=== PATIENT | male | born 1965 | race Caucasian/White ===

== ENCOUNTER 2016-12-22 12:18 | Observation (INO) ==
[2016-12-22] MEDS ORDERED: Aspirin 81 MG TAB.CHEW PO ONE (12:20)
--- NOTE | 2016-12-22 12:21 | Emergency Department Note ---
Disposition Clinical Impression: Chest pain Disposition: Admitted As Inpatient Condition: Fair General Adult HPI - General Chief complaint: ED Chest Pain Stated complaint: Chest Pain Time Seen by Provider: 12/22/16 12:19 - Related Data Home Medications Medication Instructions Recorded Confirmed Albuterol Sulfate [Proair HFA] 1 - 2 puff IH Q6HR PRN 07/11/15 12/22/16 Insulin Glargine,Hum.rec.anlog 120 unit SQ BID 07/11/15 12/22/16 [Lantus Solostar] Insulin Regular Human [Humulin R] 50 mg SQ TID 07/11/15 12/22/16 Metformin [Glucophage] 1,000 mg PO BID 07/11/15 12/22/16 Metoprolol [Lopressor] 50 mg PO BID 07/11/15 12/22/16 Montelukast [Singulair] 10 mg PO DAILY 07/11/15 12/22/16 Pioglitazone [Actos] 30 mg PO DAILY 07/11/15 12/22/16 Allergies Allergy/AdvReac Type Severity Reaction Status Date / Time Cyclobenzaprine AdvReac See Verified 12/22/16 14:27 [From Flexeril] Comments Past Medical History - Past Medical History Medical history: Reports: asthma, diabetes, hyperlipidemia, hypertension Surgical history: Reports: no surgical history Psychiatric history: Reports: anxiety - Social History Smoking Status: Current every day smoker Smokeless Tobacco Status: No Alcohol use: Reports: none Drug use: Reports: opiates, methamphetamine, IVDU, prescription drug abuse Course Vital Signs Temperature 98.2 F 12/22/16 12:19 Pulse Rate 88 12/22/16 12:19 Respiratory Rate 18 12/22/16 12:19 Blood Pressure 158/90 12/22/16 12:19 O2 Sat by Pulse Oximetry 100 12/22/16 12:19 Temperature 97.7 F 12/22/16 15:01 Pulse Rate 81 12/22/16 15:01 Respiratory Rate 16 12/22/16 15:01 Blood Pressure 153/93 12/22/16 15:01 O2 Sat by Pulse Oximetry 99 12/22/16 15:01 Oxygen Delivery Oxygen Delivery Room Air Medical Decision Making - Lab Data Result diagrams: 12/22/16 13:03 12/22/16 13:03 Lab Results 12/22/16 12/22/16 12/22/16 Range/Units 13:03 13:03 13:03 WBC 9.7 (4.3-11.1) K/mcL RBC 5.14 (4.19-5.50) M/mcL Hgb 15.5 (12.9-16.9) g/dL Hct 46.0 (37.5-50.1) % MCV 89.5 (83.0-100.0) fL MCH 30.2 (28.0-33.3) pg MCHC 33.7 (31.6-35.5) g/dL RDW 12.8 (11.5-14.5) % Plt Count 196 (140-400) K/mcL MPV 11.8 (9.4-12.4) fL Immature Gran % 0.5 (0-4) % Seg Neutrophils % 59.1 % Lymphocytes % 31.9 % Monocytes % 5.7 % Eosinophils % 1.5 % Basophils % 1.3 % Neutrophils # 5.7 (1.6-8.9) K/mcL Lymphocytes # 3.1 (0.6-4.6) K/mcL Monocytes # 0.6 (0.0-1.3) K/mcL Eosinophils # 0.2 (0.0-0.6) K/mcL Basophils # 0.1 (0.0-0.2) K/mcL Immature Plt Fraction 9.7 H (1.1-6.1) % PT 11.2 (9.4-12.1) Seconds INR 1.0 APTT 29.5 (26.0-36.0) Seconds Sodium 137 (136-145) mEq/L Potassium 4.1 (3.5-4.5) mEq/L Chloride 101 (98-109) mEq/L Carbon Dioxide 25 (19-29) mEq/L BUN 12 (8-26) mg/dL Creatinine 0.87 (0.72-1.25) mg/dL Est GFR ( Amer) > 60 (> 60) Est GFR (Non-Af Amer) > 60 (> 60) BUN/Creatinine Ratio 14 (6-26) Glucose 205 H (70-99) mg/dL Calculated Osmolality 290 (280-300) Calcium 9.1 (8.6-10.8) mg/dL Troponin I (0-0.03) ng/mL 12/22/16 Range/Units 13:03 WBC (4.3-11.1) K/mcL RBC (4.19-5.50) M/mcL Hgb (12.9-16.9) g/dL Hct (37.5-50.1) % MCV (83.0-100.0) fL MCH (28.0-33.3) pg MCHC (31.6-35.5) g/dL RDW (11.5-14.5) % Plt Count (140-400) K/mcL MPV (9.4-12.4) fL Immature Gran % (0-4) % Seg Neutrophils % % Lymphocytes % % Monocytes % % Eosinophils % % Basophils % % Neutrophils # (1.6-8.9) K/mcL Lymphocytes # (0.6-4.6) K/mcL Monocytes # (0.0-1.3) K/mcL Eosinophils # (0.0-0.6) K/mcL Basophils # (0.0-0.2) K/mcL Immature Plt Fraction (1.1-6.1) % PT (9.4-12.1) Seconds INR APTT (26.0-36.0) Seconds Sodium (136-145) mEq/L Potassium (3.5-4.5) mEq/L Chloride (98-109) mEq/L Carbon Dioxide (19-29) mEq/L BUN (8-26) mg/dL Creatinine (0.72-1.25) mg/dL Est GFR ( Amer) (> 60) Est GFR (Non-Af Amer) (> 60) BUN/Creatinine Ratio (6-26) Glucose (70-99) mg/dL Calculated Osmolality (280-300) Calcium (8.6-10.8) mg/dL Troponin I 0.00 (0-0.03) ng/mL Attestation Statement - Attestation Attestation: I examined this patient and my medical decision-making was reviewed with the MANAGER SOLUTION/PA/Advanced Practice Nurse/Resident Physician. I agree with the documented findings, disposition and treatment plan as described except to the extent set forth below. Ethd-hv-vsza time provided Patient presents as a transfer from the urgent care with reports of intermittent left-sided chest pain over the past several weeks. He also noticed a shocklike tingling sensation extending down his left upper extremity. He is asymptomatic at the time of my exam. EKG reviewed by me. Plan of care management discussed by me with resident physician Dr. Berrios
--- NOTE | 2016-12-22 12:31 | Emergency Department Note ---
Disposition Clinical Impression: Chest pain Qualifiers: Chest pain type: unspecified Qualified Code(s): R07.9 - Chest pain, unspecified Disposition: Admitted As Inpatient Condition: Good Forms: ED Satisfaction Letter General Adult HPI - General Chief complaint: ED Chest Pain Stated complaint: Chest Pain Time Seen by Provider: 12/22/16 12:19 Source: patient, EMS Limitations: no limitations - History of Present Illness HPI Narrative: 51-year-old male who admits to intermittent left sided and left shoulder chest discomfort going on for the last few weeks. He said that over the last 24 hours significantly worse and was constant. Because of this he went to an urgent care. While there he received nitroglycerin and aspirin. He states that after the nitroglycerin his chest pain when away. By the time he arrived in the emergency department he was pain-free. He reports that he does not have a cardiac history. He does have a history of IV drug use but has since gone to detox facility. He also admits to past medical history of hypertension and hyperlipidemia and diabetes (insulin-dependent). He is not on any blood thinners and does not have any stents. Radiation: non-radiation Pain Scale: 1 Consistency: now resolved Improves with: nothing Worsens with: nothing Associated symptoms: Reports: denies other symptoms Treatments Prior to Arrival: none - Related Data Home Medications Medication Instructions Recorded Confirmed Albuterol Sulfate [Proair HFA] 0 puff IH Q6HR 07/11/15 07/11/15 Insulin Glargine,Hum.rec.anlog 120 unit SQ BID 07/11/15 07/11/15 [Lantus Solostar] Insulin Regular Human [Humulin R] 50 mg SQ TID 07/11/15 07/11/15 Metformin [Glucophage] 500 mg PO BID 07/11/15 07/11/15 Metoprolol [Lopressor] 50 mg PO BID 07/11/15 07/11/15 Montelukast [Singulair] 10 mg PO DAILY 07/11/15 07/11/15 Pioglitazone [Actos] 30 mg PO 0800 07/11/15 07/11/15 Allergies Allergy/AdvReac Type Severity Reaction Status Date / Time Cyclobenzaprine AdvReac Hives Verified 07/11/15 16:55 [facility] All systems ED: reviewed and negative except as stated. Constitutional: Denies: fever Eyes: Denies: vision change ENT ED: Denies: throat pain Cardiovascular: Reports: chest pain Respiratory: Reports: dyspnea. Denies: cough Gastrointestinal: Denies: abdominal pain Genitourinary: Denies: dysuria Musculoskeletal: Denies: back pain Integumentary: Denies: rash Neurological: Denies: headache Past Medical History - Past Medical History Medical history: Reports: asthma, diabetes, hyperlipidemia, hypertension Surgical history: Reports: no surgical history Psychiatric history: Reports: anxiety - Social History Smoking Status: Current every day smoker Smokeless Tobacco Status: No Alcohol use: Reports: none Drug use: Reports: opiates, methamphetamine, IVDU, prescription drug abuse Physical Exam - General Limitations: no limitations General appearance: alert, in no apparent distress - Head Head exam: atraumatic - Eye Eye exam: Present: normal appearance, PERRL, EOMI - ENT ENT exam: normal exam, normal oropharynx - Neck Neck exam: Present: normal inspection, full ROM - Chest Chest inspection: Present: normal inspection - Respiratory Respiratory exam: Present: normal lung sounds bilaterally. Absent: respiratory distress, wheezes - Cardiovascular Cardiovascular exam: Present: regular rate, normal rhythm - Abdominal Exam Abdominal exam: Present: soft, Non-Tender - Extremities Exam Extremities exam: Present: normal inspection - Back Exam Back exam: Present: normal inspection - Neurological Exam Neurological exam: Present: alert, oriented X3 - Psychiatric Psychiatric exam: Present: normal affect, normal mood - Skin Skin exam: Present: warm, dry Course Course Narrative: He already received 325 mg of aspirin at the urgent care. Chest pain workups been initiated disposition pending results. He is currently symptomatic with stable vital signs - Reevaluation(s) Reevaluation #1: Accepted by hospitalist Dr Britton Vital Signs Temperature 98.2 F 12/22/16 12:19 Pulse Rate 88 12/22/16 12:19 Respiratory Rate 18 12/22/16 12:19 Blood Pressure 158/90 12/22/16 12:19 O2 Sat by Pulse Oximetry 100 12/22/16 12:19 Temperature 98.2 F 12/22/16 12:19 Pulse Rate 77 12/22/16 13:01 Respiratory Rate 17 12/22/16 13:01 Blood Pressure 132/93 12/22/16 13:01 O2 Sat by Pulse Oximetry 99 12/22/16 13:01 Oxygen Delivery Oxygen Delivery Room Air Medical Decision Making - Medical Records Medical records reviewed: Yes I reviewed the patient's medical records. - Lab Data Lab results reviewed: Yes I reviewed the patient's lab results. Result diagrams: 12/22/16 13:03 12/22/16 13:03 Lab Results 12/22/16 12/22/16 12/22/16 Range/Units 13:03 13:03 13:03 WBC 9.7 (4.3-11.1) K/mcL RBC 5.14 (4.19-5.50) M/mcL Hgb 15.5 (12.9-16.9) g/dL Hct 46.0 (37.5-50.1) % MCV 89.5 (83.0-100.0) fL MCH 30.2 (28.0-33.3) pg MCHC 33.7 (31.6-35.5) g/dL RDW 12.8 (11.5-14.5) % Plt Count 196 (140-400) K/mcL MPV 11.8 (9.4-12.4) fL Immature Gran % 0.5 (0-4) % Seg Neutrophils % 59.1 % Lymphocytes % 31.9 % Monocytes % 5.7 % Eosinophils % 1.5 % Basophils % 1.3 % Neutrophils # 5.7 (1.6-8.9) K/mcL Lymphocytes # 3.1 (0.6-4.6) K/mcL Monocytes # 0.6 (0.0-1.3) K/mcL Eosinophils # 0.2 (0.0-0.6) K/mcL Basophils # 0.1 (0.0-0.2) K/mcL Immature Plt Fraction 9.7 H (1.1-6.1) % PT 11.2 (9.4-12.1) Seconds INR 1.0 APTT 29.5 (26.0-36.0) Seconds Sodium 137 (136-145) mEq/L Potassium 4.1 (3.5-4.5) mEq/L Chloride 101 (98-109) mEq/L Carbon Dioxide 25 (19-29) mEq/L BUN 12 (8-26) mg/dL Creatinine 0.87 (0.72-1.25) mg/dL Est GFR ( Amer) > 60 (> 60) Est GFR (Non-Af Amer) > 60 (> 60) BUN/Creatinine Ratio 14 (6-26) Glucose 205 H (70-99) mg/dL Calculated Osmolality 290 (280-300) Calcium 9.1 (8.6-10.8) mg/dL Troponin I (0-0.03) ng/mL 12/22/16 Range/Units 13:03 WBC (4.3-11.1) K/mcL RBC (4.19-5.50) M/mcL Hgb (12.9-16.9) g/dL Hct (37.5-50.1) % MCV (83.0-100.0) fL MCH (28.0-33.3) pg MCHC (31.6-35.5) g/dL RDW (11.5-14.5) % Plt Count (140-400) K/mcL MPV (9.4-12.4) fL Immature Gran % (0-4) % Seg Neutrophils % % Lymphocytes % % Monocytes % % Eosinophils % % Basophils % % Neutrophils # (1.6-8.9) K/mcL Lymphocytes # (0.6-4.6) K/mcL Monocytes # (0.0-1.3) K/mcL Eosinophils # (0.0-0.6) K/mcL Basophils # (0.0-0.2) K/mcL Immature Plt Fraction (1.1-6.1) % PT (9.4-12.1) Seconds INR APTT (26.0-36.0) Seconds Sodium (136-145) mEq/L Potassium (3.5-4.5) mEq/L Chloride (98-109) mEq/L Carbon Dioxide (19-29) mEq/L BUN (8-26) mg/dL Creatinine (0.72-1.25) mg/dL Est GFR ( Amer) (> 60) Est GFR (Non-Af Amer) (> 60) BUN/Creatinine Ratio (6-26) Glucose (70-99) mg/dL Calculated Osmolality (280-300) Calcium (8.6-10.8) mg/dL Troponin I 0.00 (0-0.03) ng/mL - Radiology Data Radiology results reviewed: Yes I reviewed the patient's radiology results. - EKG Data EKG #1 EKG attestation: Yes I reviewed and interpreted this EKG. EKG shows normal: sinus rhythm Rate: normal Rhythm: torsades When compared to previous EKG there are: no significant changes Interpretation: no acute changes
[2016-12-22 13:11] LABS: Basophils # 0.1 K/mcL (0.0-0.2); Basophils % 1.3 %; Eosinophils # 0.2 K/mcL (0.0-0.6); Eosinophils % 1.5 %; Hemoglobin 15.5 g/dL (12.9-16.9); Immature Granulocytes % 0.5 % (0-4); Immature Platelets 9.7 % (1.1-6.1); Lymphocytes # 3.1 K/mcL (0.6-4.6); Lymphocytes % 31.9 %; Mean Corpuscular HGB Conc 33.7 g/dL (31.6-35.5); Mean Corpuscular Hemoglobin 30.2 pg (28.0-33.3); Mean Corpuscular Volume 89.5 fL (83.0-100.0); Mean Platelet Volume 11.8 fL (9.4-12.4); Monocytes # 0.6 K/mcL (0.0-1.3); Monocytes % 5.7 %; Neutrophils # 5.7 K/mcL (1.6-8.9); Platelet Count 196 K/mcL (140-400); Red Blood Count 5.14 M/mcL (4.19-5.50); Red Cell Distribution Width 12.8 % (11.5-14.5); Segmented Neutrophils % 59.1 %
[2016-12-22 13:22] LABS: BUN/Creatinine Ratio 14 (6-26); Blood Urea Nitrogen 12 mg/dL (8-26); Calcium 9.1 mg/dL (8.6-10.8); Carbon Dioxide 25 mEq/L (19-29); Chloride 101 mEq/L (98-109); Glucose 205 mg/dL (70-99); Osmolality,Calculated 290 (280-300); Potassium 4.1 mEq/L (3.5-4.5); Sodium 137 mEq/L (136-145); eGFR For African Americans > 60 (> 60); eGFR For Non-African Americans > 60 (> 60)
[2016-12-22 13:42] LABS: Prothrombin Time 11.2 Seconds (9.4-12.1)
[2016-12-22 13:44] LABS: Activated Partial Thrombo Time 29.5 Seconds (26.0-36.0)
[2016-12-22 15:02] VITALS: BP 153/93
[2016-12-22] MEDS ORDERED: Naloxone 0.4 MG/ML INJ IVP PRN (18:27)
[2016-12-22] MEDS ORDERED: Acetaminophen 325 MG TABLET PO PRN (18:27)
[2016-12-22] MEDS ORDERED: 0.9 % Sodium Chloride 1,000 ML IVC SCH (18:30)
--- NOTE | 2016-12-22 18:54 | Event Note ---
Date of Encounter: 12/22/16 Time of Encounter: 18:53 PT DOES NOT WANT TESTING HE IS LEAVING AGAINST MEDICAL ADVICE.
--- NOTE | 2016-12-23 10:55 | Electrocardiograph Report ---
[facility] Test Date: 2016-12-22 Pat Name: Nic Ford Department: 103 Room: 3B46 Gender: M [employer] Supervisor: : [id number] Requested By: Yuriy Berrios Order Number: [id number] Reading MD: Oziel Melendrez MD Measurements Intervals [place] Rate: 85 P: 44 FL: 149 QRS: 21 QRSD: 98 T: 51 QT: 344 QTc: 387 Interpretive Statements SINUS RHYTHM BASELINE ARTIFACT Electronically Signed On 12-23-16 10:54:18 EST by Oziel Melendrez MD
== END 2016-12-22 18:57 | disposition left against medical advice (07) ==
LOC: 3BNU 12:18 → EMEROO 12:18 → 3BNU 14:58
PROVIDERS: ADMIT Family Medicine; ATTEND Nurse Practitioner Family

== ENCOUNTER 2017-04-11 15:11 | Inpatient (IN) ==
--- NOTE | 2017-04-11 16:08 | Emergency Department Note ---
Disposition Clinical Impression: Acute psychosis, Auditory hallucination Disposition: Still a Patient Referrals: NO,PCP [Primary Care Provider] - Forms: ED Satisfaction Letter Psych HPI - General Chief Complaint: ED Psychiatric Symptoms Stated Complaint: hallucinations Time Seen by Provider: 04/11/17 15:26 Source: patient, other Nursing Notes Reviewed: Yes Vital Signs Reviewed: Yes - History of Present Illness HPI Narrative: Chief complaint is hallucinations and anxiety. History this is a 51-year-old female who comes in the day he said the last couple days he thinks possibly 3 days he has been having auditory hallucinations as been trying to tell him to hurt other people. He says he supposed to cut someone sat off but he does not know who. He said he knows this is wrong and he would not do something like this but this is making him very anxious almost to the point of being tearful. He said he thought about hurting himself but he knows he should not do that. He said the last time this happened was years ago when he is in treatment for methamphetamine addiction. He spent 30 days in a treatment facility. He is supposed be on Seroquel and an SSRI. He stopped the Seroquel a couple months ago. He said he discontinued that on his own as it made him very tired. He is still taking his SSRI. He also takes a beta tanisha for depression which she has had been on for several years he said despite the beta tanisha he still has high blood pressure. Denies any chest pain or other symptoms. He says he feels like he probably needs to be in the hospital for treatment. But states that he is frightened to be admitted also. Pt complaint: anxiety - Related Data Home Medications Medication Instructions Recorded Confirmed Albuterol Sulfate [Proair HFA] 1 - 2 puff IH Q6HR PRN 07/11/15 12/22/16 Insulin Glargine,Hum.rec.anlog 120 unit SQ BID 07/11/15 12/22/16 [Lantus Solostar] Insulin Regular Human [Humulin R] 50 mg SQ TID 07/11/15 12/22/16 Metformin [Glucophage] 1,000 mg PO BID 07/11/15 12/22/16 Metoprolol [Lopressor] 50 mg PO BID 07/11/15 12/22/16 Montelukast [Singulair] 10 mg PO DAILY 07/11/15 12/22/16 Pioglitazone [Actos] 30 mg PO DAILY 07/11/15 12/22/16 Allergies Allergy/AdvReac Type Severity Reaction Status Date / Time Cyclobenzaprine AdvReac See Verified 12/22/16 14:27 [From Flexeril] Comments Review of Systems: Positive auditory hallucinations, denies visual hallucinations at this time. Positive command voices telling him to harm somebody. No suicidal ideations at this time. Positive for anxiety. All systems ED: reviewed and negative except as stated. Past Medical History - Past Medical History Medical history: Reports: asthma, COPD, diabetes, hyperlipidemia, hypertension Surgical history: Reports: appendectomy, herniorrhaphy Psychiatric history: Reports: anxiety - Social History Smoking Status: Current every day smoker Smokeless Tobacco Status: No Alcohol use: Reports: none Drug use: Reports: opiates, methamphetamine, IVDU Physical Exam Temperature is 97.6, pulse is 87 and regular, respirations are 16 nonlabored, BP 168/104, pulse ox 95%. Alert to person place and time, anxious but cooperative. HEENT is normocephalic, PERRL, EOMI, no enlarged thyroid, no signs of trauma, supple neck, no meningeal signs Cardiovascular is regular rate and rhythm without rubs or JVD Lungs are clear to auscultation bilaterally with good aeration Abdomen is soft and nonsurgical good bowel sounds no masses Extremities are present 4 with good distal pulses and cap refill is brisk Dermatologic, skin is warm and dry no signs of acute trauma, rash, petechiae, or tract edmondson. Neurologic cranial nerves II through XII are intact good upper and lower motor strength GCS is [address] and time. - General Limitations: no limitations General appearance: alert, in no apparent distress Course Vital Signs Temperature 97.6 F 04/11/17 15:13 Pulse Rate 87 04/11/17 15:13 Respiratory Rate 16 04/11/17 15:13 Blood Pressure 168/104 04/11/17 15:13 O2 Sat by Pulse Oximetry 95 04/11/17 15:13 Temperature 97.6 F 04/11/17 15:13 Pulse Rate 87 04/11/17 15:37 Respiratory Rate 16 04/11/17 15:37 Blood Pressure 168/104 04/11/17 15:37 O2 Sat by Pulse Oximetry 95 04/11/17 15:37 Oxygen Delivery Oxygen Delivery Room Air Psych - MDM Narrative Medical decision making narrative: Patient is made a no AMA, with suicide precautions. Psychiatric labs and then we will speak with [facility] for evaluation. Patient's in agreement with this plan. 1833 hrs.: Patient's seen by [facility]. They do not have any beds they think [facility] to transfer him out for any psychiatric admissions [place] [facility] had not get baseline labs CBC chemistry LFTs and a TSH. His other facilities often require that. Patient's in agreement with this. He is comfortable at this time and is waiting for [facility]'s decision for placement elsewhere. - Lab Data Lab Results 04/11/17 04/11/17 Range/Units 15:46 16:15 Salicylates < 5.0 L (15-30) mg/dL Urine Opiates Screen Negative (Fphcvf=880) ng/mL Acetaminophen < 1.0 L (10-30) mcg/mL Ur Barbiturates Screen Negative (Sshfrw=776) ng/mL Ur Phencyclidine Scrn Negative (Cutoff=25) ng/mL Ur Amphetamines Screen Negative (Zmypeh=9966) ng/mL U Benzodiazepines Scrn Negative (Daviwj=644) ng/mL Urine Cocaine Screen Negative (Cutoff= 300) ng/mL U Marijuana (THC) Screen Negative (Cutoff = 50) ng/mL Ethyl Alcohol < 10 (0-10) mg/dL Psychiatric Medical Clearance - Medical Clearance Checklist Medical History: No Social History Section defined Current Vitals: Last Vital Signs Temp 97.6 F 04/11/17 15:13 Pulse 87 04/11/17 15:37 Resp 16 04/11/17 15:37 BP 168/104 04/11/17 15:37 Pulse Ox 95 04/11/17 15:37 Psychiatric Lab Panel: Drug Levels and Toxicity 04/11/17 04/11/17 15:46 16:15 Urine Opiates Screen Negative Acetaminophen < 1.0 L Ur Barbiturates Screen Negative Ur Phencyclidine Scrn Negative Ur Amphetamines Screen Negative U Benzodiazepines Scrn Negative Urine Cocaine Screen Negative U Marijuana (THC) Screen Negative Ethyl Alcohol < 10 Abnormal Labs: Abnormal lab results Salicylates < 5.0 mg/dL (15-30) L 04/11/17 16:15 Acetaminophen < 1.0 mcg/mL (10-30) L 04/11/17 16:15 Statement of Medical Clearance: I have evaluated the patient, reviewed diagnostic information, and certify that the patient's medical condition is sufficiently stable that transfer to the psychiatric unit does not pose a significant risk of deterioration.
[2017-04-11 17:01] LABS: Acetaminophen < 1.0 mcg/mL (10-30); Ethanol < 10 mg/dL (0-10); Salicylate < 5.0 mg/dL (15-30)
[2017-04-11 17:33] LABS: Amphetamine Screen,Urine Negative ng/mL (Cutoff=1000); Barbiturate Screen,Urine Negative ng/mL (Cutoff=200); Benzodiazepines Screen,Urine Negative ng/mL (Cutoff=200); Cannabinoid Screen,Urine Negative ng/mL (Cutoff = 50); Cocaine Screen,Urine Negative ng/mL (Cutoff= 300); Opiate Screen,Urine Negative ng/mL (Cutoff=300); Phencyclidine Screen,Urine Negative ng/mL (Cutoff=25)
[2017-04-11 18:59] LABS: Basophils # 0.1 K/mcL (0.0-0.2); Basophils % 1.4 %; Eosinophils # 0.2 K/mcL (0.0-0.6); Eosinophils % 2.7 %; Hematocrit 44.3 % (37.5-50.1); Hemoglobin 14.6 g/dL (12.9-16.9); Immature Granulocytes % 0.5 % (0-4); Lymphocytes # 2.9 K/mcL (0.6-4.6); Lymphocytes % 33.8 %; Mean Corpuscular Hemoglobin 29.4 pg (28.0-33.3); Mean Corpuscular Volume 89.3 fL (83.0-100.0); Mean Platelet Volume 12.2 fL (9.4-12.4); Monocytes # 0.7 K/mcL (0.0-1.3); Neutrophils # 4.7 K/mcL (1.6-8.9); Platelet Count 211 K/mcL (140-400); Red Blood Count 4.96 M/mcL (4.19-5.50); Red Cell Distribution Width 12.5 % (11.5-14.5); Segmented Neutrophils % 53.6 %
[2017-04-11 19:04] LABS: Alanine Aminotransferase 48 Units/L (0-55); Albumin 3.6 g/dL (3.5-5.0); Albumin/Globulin Ratio 0.9 (1.1-2.2); Alkaline Phosphatase 73 Units/L (38-126); Aspartate Amino Transferase 28 Units/L (5-34); BUN/Creatinine Ratio 10 (6-26); Bilirubin,Total 1.2 mg/dL (0.2-1.2); Blood Urea Nitrogen 12 mg/dL (8-26); Calcium 9.7 mg/dL (8.6-10.8); Carbon Dioxide 22 mEq/L (19-29); Chloride 101 mEq/L (98-109); Globulin 4.1 g/dL (2.4-3.5); Glucose 429 mg/dL (70-99); Osmolality,Calculated 298 (280-300); Potassium 4.7 mEq/L (3.5-4.5); Sodium 135 mEq/L (136-145); Total Protein 7.7 g/dL (6.0-8.3); eGFR For African Americans > 60 (> 60); eGFR For Non-African Americans > 60 (> 60)
[2017-04-11 19:24] LABS: Thyroid Stimulating Hormone 1.903 mcIU/mL (0.350-4.840)
[2017-04-12] MEDS ORDERED: *HR* LORazepam 1 MG TABLET PO ONE (02:20)
[2017-04-12] MEDS ORDERED: Insulin Regular, Human 100 UNIT/ML SQ ONE (04:44)
--- NOTE | 2017-04-12 06:29 | Emergency Department Note ---
START Narrative - START START: pt resting comfortably throughout my shift. still awaiting placement at this time.
[2017-04-12] MEDS ORDERED: Dextrose Gel 15 GM PO PRN ×2 (18:38)
[2017-04-12] MEDS ORDERED: *HR* Dextrose 50 % in Water (Syg) 50 ML SYRINGE IVP PRN (18:38)
[2017-04-12] MEDS ORDERED: D5% in Water 1,000 ML IVC PRN (18:38)
[2017-04-12] MEDS ORDERED: MOM Conc 10 ML UD.LIQ PO PRN (18:39)
[2017-04-12] MEDS ORDERED: *HR* LORazepam 2 MG/ML VIAL IM PRN (18:39)
[2017-04-12] MEDS ORDERED: Mag Hydrox/Al Hydrox/Simeth 30 ML UDC PO PRN (18:39)
[2017-04-12] MEDS ORDERED: *HR* LORazepam 1 MG TABLET PO PRN (18:39)
[2017-04-12] MEDS ORDERED: Haloperidol Lactate 5 MG/ML VIAL IM PRN (18:39)
--- NOTE | 2017-04-12 18:57 | Emergency Department Note ---
Disposition Clinical Impression: Acute psychosis, Auditory hallucination Disposition: Admitted As Inpatient Condition: Good Psych HPI - General Chief Complaint: ED Psychiatric Symptoms Stated Complaint: hallucinations Time Seen by Provider: 04/11/17 15:26 Source: patient, other Mode of arrival: ambulatory Limitations: no limitations Nursing Notes Reviewed: Yes Vital Signs Reviewed: Yes - Related Data Home Medications Medication Instructions Recorded Confirmed Metformin [Glucophage] 500 mg PO BID 07/11/15 04/12/17 Baclofen [Lioresal] 10 mg PO DAILY 04/12/17 04/12/17 Bupropion HCl [Wellbutrin Xl] 300 mg PO DAILY 04/12/17 04/12/17 Insulin ASPART [Novolog Flexpen] 0 unit SQ TIDAC 04/12/17 04/12/17 Insulin Glargine [Lantus] 25 unit SQ BID 04/12/17 04/12/17 Lisinopril [Zestril] 20 mg PO DAILY 04/12/17 04/12/17 Metoprolol XL (24 HR) Succ [Toprol 50 mg PO BID 04/12/17 04/12/17 XL] Mirtazapine [Remeron] 15 mg PO HS 04/12/17 04/12/17 Paliperidone [Paliperidone ER] 9 mg PO DAILY 04/12/17 Allergies Allergy/AdvReac Type Severity Reaction Status Date / Time Cyclobenzaprine AdvReac See Verified 12/22/16 14:27 [From Flexeril] Comments Past Medical History - Past Medical History Medical history: Reports: asthma, COPD, diabetes, hyperlipidemia, hypertension Surgical history: Reports: appendectomy, herniorrhaphy Psychiatric history: Reports: anxiety - Social History Smoking Status: Current every day smoker Smokeless Tobacco Status: No Alcohol use: Reports: none Drug use: Reports: opiates, methamphetamine, IVDU Physical Exam - General Limitations: no limitations General appearance: alert, in no apparent distress Course Vital Signs Temperature 97.6 F 04/11/17 15:13 Pulse Rate 87 04/11/17 15:13 Respiratory Rate 16 04/11/17 15:13 Blood Pressure 168/104 04/11/17 15:13 O2 Sat by Pulse Oximetry 95 04/11/17 15:13 Temperature 98 F 04/12/17 20:49 Pulse Rate 81 04/12/17 20:49 Respiratory Rate 18 04/12/17 20:49 Blood Pressure 143/81 04/12/17 20:49 O2 Sat by Pulse Oximetry 95 04/12/17 13:17 Oxygen Delivery Oxygen Delivery Room Air Psych - MDM Narrative Medical decision making narrative: Pt received in sign out at start of shift. No further complaints or concerns during shift. Pt admitted to for further care. - Lab Data Result diagrams: 04/11/17 16:15 04/11/17 16:15 Lab Results 04/11/17 04/11/17 04/11/17 Range/Units 15:46 16:15 16:15 WBC 8.7 (4.3-11.1) K/mcL RBC 4.96 (4.19-5.50) M/mcL Hgb 14.6 (12.9-16.9) g/dL Hct 44.3 (37.5-50.1) % MCV 89.3 (83.0-100.0) fL MCH 29.4 (28.0-33.3) pg MCHC 33.0 (31.6-35.5) g/dL RDW 12.5 (11.5-14.5) % Plt Count 211 (140-400) K/mcL MPV 12.2 (9.4-12.4) fL Immature Gran % 0.5 (0-4) % Seg Neutrophils % 53.6 % Lymphocytes % 33.8 % Monocytes % 8.0 % Eosinophils % 2.7 % Basophils % 1.4 % Neutrophils # 4.7 (1.6-8.9) K/mcL Lymphocytes # 2.9 (0.6-4.6) K/mcL Monocytes # 0.7 (0.0-1.3) K/mcL Eosinophils # 0.2 (0.0-0.6) K/mcL Basophils # 0.1 (0.0-0.2) K/mcL Sodium (136-145) mEq/L Potassium (3.5-4.5) mEq/L Chloride (98-109) mEq/L Carbon Dioxide (19-29) mEq/L BUN (8-26) mg/dL Creatinine (0.72-1.25) mg/dL Est GFR ( Amer) (> 60) Est GFR (Non-Af Amer) (> 60) BUN/Creatinine Ratio (6-26) Glucose (70-99) mg/dL POC Glucose (58-89) Calculated Osmolality (280-300) Calcium (8.6-10.8) mg/dL Total Bilirubin (0.2-1.2) mg/dL AST (5-34) Units/L ALT (0-55) Units/L Alkaline Phosphatase (38-126) Units/L Serum Total Protein (6.0-8.3) g/dL Albumin (3.5-5.0) g/dL Globulin (2.4-3.5) g/dL Albumin/Globulin Ratio (1.1-2.2) TSH (0.350-4.840) mcIU/mL Salicylates < 5.0 L (15-30) mg/dL Urine Opiates Screen Negative (Lxdfgh=686) ng/mL Acetaminophen < 1.0 L (10-30) mcg/mL Ur Barbiturates Screen Negative (Camzhv=914) ng/mL Ur Phencyclidine Scrn Negative (Cutoff=25) ng/mL Ur Amphetamines Screen Negative (Iujgje=3859) ng/mL U Benzodiazepines Scrn Negative (Cjcxmp=524) ng/mL Urine Cocaine Screen Negative (Cutoff= 300) ng/mL U Marijuana (THC) Screen Negative (Cutoff = 50) ng/mL Ethyl Alcohol < 10 (0-10) mg/dL 04/11/17 04/12/17 04/12/17 Range/Units 16:15 02:13 05:53 WBC (4.3-11.1) K/mcL RBC (4.19-5.50) M/mcL Hgb (12.9-16.9) g/dL Hct (37.5-50.1) % MCV (83.0-100.0) fL MCH (28.0-33.3) pg MCHC (31.6-35.5) g/dL RDW (11.5-14.5) % Plt Count (140-400) K/mcL MPV (9.4-12.4) fL Immature Gran % (0-4) % Seg Neutrophils % % Lymphocytes % % Monocytes % % Eosinophils % % Basophils % % Neutrophils # (1.6-8.9) K/mcL Lymphocytes # (0.6-4.6) K/mcL Monocytes # (0.0-1.3) K/mcL Eosinophils # (0.0-0.6) K/mcL Basophils # (0.0-0.2) K/mcL Sodium 135 L (136-145) mEq/L Potassium 4.7 H (3.5-4.5) mEq/L Chloride 101 (98-109) mEq/L Carbon Dioxide 22 (19-29) mEq/L BUN 12 (8-26) mg/dL Creatinine 1.22 (0.72-1.25) mg/dL Est GFR ( Amer) > 60 (> 60) Est GFR (Non-Af Amer) > 60 (> 60) BUN/Creatinine Ratio 10 (6-26) Glucose 429 H (70-99) mg/dL POC Glucose 336 H 257 H (58-89) Calculated Osmolality 298 (280-300) Calcium 9.7 (8.6-10.8) mg/dL Total Bilirubin 1.2 (0.2-1.2) mg/dL AST 28 (5-34) Units/L ALT 48 (0-55) Units/L Alkaline Phosphatase 73 (38-126) Units/L Serum Total Protein 7.7 (6.0-8.3) g/dL Albumin 3.6 (3.5-5.0) g/dL Globulin 4.1 H (2.4-3.5) g/dL Albumin/Globulin Ratio 0.9 L (1.1-2.2) TSH 1.903 (0.350-4.840) mcIU/mL Salicylates (15-30) mg/dL Urine Opiates Screen (Kdpybn=034) ng/mL Acetaminophen (10-30) mcg/mL Ur Barbiturates Screen (Ybrahw=805) ng/mL Ur Phencyclidine Scrn (Cutoff=25) ng/mL Ur Amphetamines Screen (Rynami=8045) ng/mL U Benzodiazepines Scrn (Dafitb=877) ng/mL Urine Cocaine Screen (Cutoff= 300) ng/mL U Marijuana (THC) Screen (Cutoff = 50) ng/mL Ethyl Alcohol (0-10) mg/dL 17 04/12/17 Range/Units 05:55 13:22 WBC (4.3-11.1) K/mcL RBC (4.19-5.50) M/mcL Hgb (12.9-16.9) g/dL Hct (37.5-50.1) % MCV (83.0-100.0) fL MCH (28.0-33.3) pg MCHC (31.6-35.5) g/dL RDW (11.5-14.5) % Plt Count (140-400) K/mcL MPV (9.4-12.4) fL Immature Gran % (0-4) % Seg Neutrophils % % Lymphocytes % % Monocytes % % Eosinophils % % Basophils % % Neutrophils # (1.6-8.9) K/mcL Lymphocytes # (0.6-4.6) K/mcL Monocytes # (0.0-1.3) K/mcL Eosinophils # (0.0-0.6) K/mcL Basophils # (0.0-0.2) K/mcL Sodium (136-145) mEq/L Potassium (3.5-4.5) mEq/L Chloride (98-109) mEq/L Carbon Dioxide (19-29) mEq/L BUN (8-26) mg/dL Creatinine (0.72-1.25) mg/dL Est GFR ( Amer) (> 60) Est GFR (Non-Af Amer) (> 60) BUN/Creatinine Ratio (6-26) Glucose (70-99) mg/dL POC Glucose 255 H 254 H (58-89) Calculated Osmolality (280-300) Calcium (8.6-10.8) mg/dL Total Bilirubin (0.2-1.2) mg/dL AST (5-34) Units/L ALT (0-55) Units/L Alkaline Phosphatase (38-126) Units/L Serum Total Protein (6.0-8.3) g/dL Albumin (3.5-5.0) g/dL Globulin (2.4-3.5) g/dL Albumin/Globulin Ratio (1.1-2.2) TSH (0.350-4.840) mcIU/mL Salicylates (15-30) mg/dL Urine Opiates Screen (Tadgem=712) ng/mL Acetaminophen (10-30) mcg/mL Ur Barbiturates Screen (Epvzmg=864) ng/mL Ur Phencyclidine Scrn (Cutoff=25) ng/mL Ur Amphetamines Screen (Vchxwv=0947) ng/mL U Benzodiazepines Scrn (Ibdrja=952) ng/mL Urine Cocaine Screen (Cutoff= 300) ng/mL U Marijuana (THC) Screen (Cutoff = 50) ng/mL Ethyl Alcohol (0-10) mg/dL Psychiatric Medical Clearance - Medical Clearance Checklist Medical History: No Social History Section defined Current Vitals: Last Vital Signs Temp 98 F 04/12/17 20:49 Pulse 81 04/12/17 20:49 Resp 18 04/12/17 20:49 BP 143/81 04/12/17 20:49 Pulse Ox 95 04/12/17 13:17 Abnormal Labs: Abnormal lab results Sodium 135 mEq/L (136-145) L 04/11/17 16:15 Potassium 4.7 mEq/L (3.5-4.5) H 04/11/17 16:15 Glucose 429 mg/dL (70-99) H 04/11/17 16:15 POC Glucose 345 (58-89) H 04/12/17 19:56 Globulin 4.1 g/dL (2.4-3.5) H 04/11/17 16:15 Albumin/Globulin Ratio 0.9 (1.1-2.2) L 04/11/17 16:15 Salicylates < 5.0 mg/dL (15-30) L 04/11/17 16:15 Acetaminophen < 1.0 mcg/mL (10-30) L 04/11/17 16:15 Statement of Medical Clearance: I have evaluated the patient, reviewed diagnostic information, and certify that the patient's medical condition is sufficiently stable that transfer to the psychiatric unit does not pose a significant risk of deterioration.
[2017-04-12] MEDS ORDERED: Insulin DETEMIR 100 UNIT/ML X5UNITS SQ SCH (21:00)
[2017-04-12] MEDS: Metoprolol XL (24 HR) Succ 50 MG TAB.ER.24H PO SCH (21:03)
[2017-04-12] MEDS: Lisinopril 20 MG TABLET PO SCH (21:03)
[2017-04-12] MEDS: Mirtazapine 15 MG TABLET PO SCH (21:03)
[2017-04-12] MEDS: BuPROPion XL (24 HR) 150 MG TABLET PO SCH (21:03)
[2017-04-12] MEDS: *HR* Metformin 500 MG TABLET PO SCH (21:05)
[2017-04-12] MEDS: traZODone 50 MG TABLET PO PRN (21:08)
[2017-04-13] MEDS: Baclofen 10 MG TABLET PO SCH (08:37)
[2017-04-13] MEDS: *HR* Metformin 500 MG TABLET PO SCH ×2 (08:38→17:59)
[2017-04-13] MEDS: BuPROPion XL (24 HR) 150 MG TABLET PO SCH (08:38)
[2017-04-13] MEDS: Metoprolol XL (24 HR) Succ 50 MG TAB.ER.24H PO SCH ×2 (08:38→20:19)
[2017-04-13] MEDS: Lisinopril 20 MG TABLET PO SCH (08:40)
[2017-04-13] MEDS: Insulin LISPRO 300 UNITS/3 ML VIAL SQ SCH ×3 (08:41→16:45)
[2017-04-13] MEDS ORDERED: PALIPERIDONE 9 MG PO SCH (09:00)
[2017-04-13] MEDS: Insulin DETEMIR 100 UNIT/ML X5UNITS SQ SCH ×2 (09:36→20:20)
--- NOTE | 2017-04-13 10:30 | Psychiatry History & Physical ---
Date of Encounter: 04/13/17 Time of Encounter: 10:00 History of Present Illness Patient Stated Chief Complaint: Hallucinations Medicare Admission Attestation: For traditional Medicare patients the provided hospital inpatient services are reasonable and necessary and in the case of services not specified as inpatient -only under 42 CFR 419.22 (n), that they are appropriately provided as inpatient services in accordance 42 CFR 412.3. For Critical [facility] the patient may reasonably be expected to be discharged or transferred to a hospital within 96 hours after admission to the Critical [facility]. Admitted From: Emergency Dept History of Present Illness: Mr. Ford is a 51 year old male admitted from the emergency department for evaluation of hallucinations auditory and visual. Patient has a long history of drug abuse including methamphetamine and opiates and has been sober for the last 3 months. Patient stated that he experienced hallucination while he was using drugs but this time he is very overwhelmed and scared all of the voices and the visual hallucinations he describes the voices as commanding him to hurt people or cut their throats she did not specify specific people. Visual hallucination he described as demons was red eyes. He experienced was hallucination while he is awake. Patient denied any other events in the past several weeks or any medical condition except being diabetic and his blood sugar control has been poorly adjusted. Patient had a history of inpatient and outpatient psychiatric treatment for depression and anxiety in addition to substance abuse. Past Med Surg Social Fam HX - Past Medical History Medical history: asthma, COPD, diabetes, hyperlipidemia, hypertension - Past Psychiatric History Psychiatric history: Reports: anxiety, depression, previous psychiatric hospitalization - Past Surgical History Surgical History: appendectomy, herniorrhaphy - Social History Smoking Status: Current every day smoker Smokeless Tobacco Status: No Alcohol use: none Drug use: opiates, methamphetamine, IVDU Medications & Allergies Metformin [Glucophage] 500 mg PO BID 07/11/15 [History] Baclofen [Lioresal] 10 mg PO DAILY 04/12/17 [History] Bupropion HCl [Wellbutrin Xl] 300 mg PO DAILY 04/12/17 [History] Insulin ASPART [Novolog Flexpen] 0 unit SQ TIDAC 04/12/17 [History] Insulin Glargine [Lantus] 25 unit SQ BID 04/12/17 [History] Lisinopril [Zestril] 20 mg PO DAILY 04/12/17 [History] Metoprolol XL (24 HR) Succ [Toprol XL] 50 mg PO BID 04/12/17 [History] Mirtazapine [Remeron] 15 mg PO HS 04/12/17 [History] Paliperidone [Paliperidone ER] 9 mg PO DAILY 04/12/17 [History] Allergies Cyclobenzaprine [From Flexeril] Adverse Reaction (Verified 12/22/16 14:27) See Comments "MOOD SWINGS" Review of Systems Psychiatric: Reports: auditory hallucinations, visual hallucinations Mental Status Exam Patient orientation: Yes Person, Yes Time, Yes Place Level of alertness: Alert Patient appearance: Appropriate, Unkempt, Disheveled Behavior: cooperative, nervous, anxious, suspicious, fearful Psychomotor activity: Normal Eye contact: Maintains Eye Contact Mood description: Anxious, Labile Affect description: congruent with mood, labile, anxious Speech pattern: Normal rate, Normal rhythm, Normal tone, Impoverished Speech volume: Normal Thought process: Linear, Goal Oriented Thought content: No Suicidal ideation, No Homicidal ideation, No Overt delusions Perceptual disturbances: Yes Auditory hallucinations, Yes Visual hallucinations Attention span: Capable of Focused Attention Memory description: Grossly Intact Patient reliability: Reliable Historian Intelligence estimate: Average Judgment: Limited Insight: Partial Results - Vital Signs Vital signs: Temp Pulse Resp BP Pulse Ox 97.2 F L 71 16 112/86 95 04/13/17 08:53 04/13/17 08:53 04/13/17 08:53 04/13/17 08:53 04/12/17 13:17 - Labs Labs: Laboratory Last Values WBC 8.7 K/mcL (4.3-11.1) 04/11/17 16:15 RBC 4.96 M/mcL (4.19-5.50) 04/11/17 16:15 Hgb 14.6 g/dL (12.9-16.9) 04/11/17 16:15 Hct 44.3 % (37.5-50.1) 04/11/17 16:15 MCV 89.3 fL (83.0-100.0) 04/11/17 16:15 MCH 29.4 pg (28.0-33.3) 04/11/17 16:15 MCHC 33.0 g/dL (31.6-35.5) 04/11/17 16:15 RDW 12.5 % (11.5-14.5) 04/11/17 16:15 Plt Count 211 K/mcL (140-400) 04/11/17 16:15 MPV 12.2 fL (9.4-12.4) 04/11/17 16:15 Immature Gran % 0.5 % (0-4) 04/11/17 16:15 Seg Neutrophils % 53.6 % 04/11/17 16:15 Lymphocytes % 33.8 % 04/11/17 16:15 Monocytes % 8.0 % 04/11/17 16:15 Eosinophils % 2.7 % 04/11/17 16:15 Basophils % 1.4 % 04/11/17 16:15 Neutrophils # 4.7 K/mcL (1.6-8.9) 04/11/17 16:15 Lymphocytes # 2.9 K/mcL (0.6-4.6) 04/11/17 16:15 Monocytes # 0.7 K/mcL (0.0-1.3) 04/11/17 16:15 Eosinophils # 0.2 K/mcL (0.0-0.6) 04/11/17 16:15 Basophils # 0.1 K/mcL (0.0-0.2) 04/11/17 16:15 Sodium 135 mEq/L (136-145) L 04/11/17 16:15 Potassium 4.7 mEq/L (3.5-4.5) H 04/11/17 16:15 Chloride 101 mEq/L (98-109) 04/11/17 16:15 Carbon Dioxide 22 mEq/L (19-29) 04/11/17 16:15 BUN 12 mg/dL (8-26) 04/11/17 16:15 Creatinine 1.22 mg/dL (0.72-1.25) 04/11/17 16:15 Est GFR ( Amer) > 60 (> 60) 04/11/17 16:15 Est GFR (Non-Af Amer) > 60 (> 60) 04/11/17 16:15 BUN/Creatinine Ratio 10 (6-26) 04/11/17 16:15 Glucose 429 mg/dL (70-99) H 04/11/17 16:15 POC Glucose 319 (58-89) H 04/13/17 09:38 Calculated Osmolality 298 (280-300) 04/11/17 16:15 Calcium 9.7 mg/dL (8.6-10.8) 04/11/17 16:15 Total Bilirubin 1.2 mg/dL (0.2-1.2) 04/11/17 16:15 AST 28 Units/L (5-34) 04/11/17 16:15 ALT 48 Units/L (0-55) 04/11/17 16:15 Alkaline Phosphatase 73 Units/L (38-126) 04/11/17 16:15 Serum Total Protein 7.7 g/dL (6.0-8.3) 04/11/17 16:15 Albumin 3.6 g/dL (3.5-5.0) 04/11/17 16:15 Globulin 4.1 g/dL (2.4-3.5) H 04/11/17 16:15 Albumin/Globulin Ratio 0.9 (1.1-2.2) L 04/11/17 16:15 TSH 1.903 mcIU/mL (0.350-4.840) 04/11/17 16:15 Salicylates < 5.0 mg/dL (15-30) L 04/11/17 16:15 Urine Opiates Screen Negative ng/mL (Cylexi=363) 04/11/17 15:46 Acetaminophen < 1.0 mcg/mL (10-30) L 04/11/17 16:15 Ur Barbiturates Screen Negative ng/mL (Vtzpuq=667) 04/11/17 15:46 Ur Phencyclidine Scrn Negative ng/mL (Cutoff=25) 04/11/17 15:46 Ur Amphetamines Screen Negative ng/mL (Zqjoou=8108) 04/11/17 15:46 U Benzodiazepines Scrn Negative ng/mL (Gwvroy=313) 04/11/17 15:46 Urine Cocaine Screen Negative ng/mL (Cutoff= 300) 04/11/17 15:46 U Marijuana (THC) Screen Negative ng/mL (Cutoff = 50) 04/11/17 15:46 Ethyl Alcohol < 10 mg/dL (0-10) 04/11/17 16:15 Assessment and Plan (1) Acute psychosis Current visit: Yes Status: Acute Plan: Admit inpatient for safety and stabilization, Close observation, Suicide Precautions per unit protocol, Encourage participation in unit milieu, Group Therapy, Monitor sleep, Monitor appetite Additional Plan: Will discontinue Invega and start Abilify 10 mg daily benefits and side effects were discussed patient is agreeable to medication changes. We will order a hemoglobin A1c to evaluate therapeutic control. Risks, benefits, side effects, alternatives discussed w/pt: Yes Patient agreeable to treatment: Yes Estimated Length of Stay (Days): 5
[2017-04-13] MEDS: Nicotine 21 MG PATCH.TD24 TD SCH (10:33)
[2017-04-13] MEDS: ARIPiprazole 10 MG TABLET PO SCH (10:35)
[2017-04-13 12:01] LABS: Hemoglobin A1C 10.3 %
[2017-04-13] MEDS: Ibuprofen 400 MG TABLET PO PRN (20:19)
[2017-04-13] MEDS: hydrOXYzine pamoate 25 MG CAPSULE PO PRN (20:19)
[2017-04-13] MEDS: Mirtazapine 15 MG TABLET PO SCH (20:19)
[2017-04-14] MEDS: Insulin DETEMIR 100 UNIT/ML X5UNITS SQ SCH ×2 (08:47→21:44)
[2017-04-14] MEDS: Insulin LISPRO 300 UNITS/3 ML VIAL SQ SCH ×3 (08:47→16:41)
[2017-04-14] MEDS: BuPROPion XL (24 HR) 150 MG TABLET PO SCH (08:49)
[2017-04-14] MEDS: Baclofen 10 MG TABLET PO SCH (08:50)
[2017-04-14] MEDS: Lisinopril 20 MG TABLET PO SCH (08:50)
[2017-04-14] MEDS: Metoprolol XL (24 HR) Succ 50 MG TAB.ER.24H PO SCH ×2 (08:50→21:45)
[2017-04-14] MEDS: *HR* Metformin 500 MG TABLET PO SCH ×2 (08:50→16:52)
[2017-04-14] MEDS: ARIPiprazole 10 MG TABLET PO SCH (08:56)
[2017-04-14] MEDS: Nicotine 21 MG PATCH.TD24 TD SCH (08:56)
--- NOTE | 2017-04-14 16:08 | Psychiatry Progress Note ---
Date of Encounter: 04/14/17 Time of Encounter: 16:00 Subjective Interval history: Patient is seen for follow-up. Reported good sleep and denies any auditory hallucinations. Review of labs hemoglobin A1c 10.3 this is high and indicates poor diabetic control due to noncompliance. Patient responded well to medication changes and denies any side effects from Abilify. His mood and affect are stable. Denies any suicidal ideation. Encouraged to maintain compliance with medication and sobriety. Review of Systems Psychiatric: Reports: auditory hallucinations, visual hallucinations Objective: Exam Patient orientation: Yes Person, Yes Time, Yes Place Level of alertness: Alert Patient appearance: Appropriate, Well Groomed Behavior: calm, cooperative, guarded Psychomotor activity: Normal Eye contact: Minimal Contact Mood description: Anxious Affect description: congruent with mood, labile Speech pattern: Normal rate, Normal rhythm, Normal tone, Limited Speech volume: Normal Thought process: Linear, Goal Oriented, Thought Blocking Thought content: No Suicidal ideation, No Homicidal ideation, No Overt delusions Perceptual disturbances: No Auditory hallucinations, No Visual hallucinations Judgment: Fair Insight: Partial Results - Vital Signs Vital Signs: Temp Pulse Resp BP Pulse Ox 97.8 F 67 20 130/87 95 04/14/17 09:00 04/14/17 09:00 04/14/17 09:00 04/14/17 09:00 04/12/17 13:17 - Labs Labs: Laboratory Results - last 24 hr 04/13/17 04/13/17 04/14/17 16:30 20:23 08:17 POC Glucose 218 H 209 H 213 H 04/14/17 11:41 POC Glucose 136 H Assessment and Plan (1) Acute psychosis Current visit: Yes Status: Acute Plan: Continue hospitalization, Close observation, Suicide Precautions per unit protocol, Encourage participation in unit milieu, Group Therapy, Monitor sleep, Monitor appetite Risks, benefits, side effects, alternatives discussed w/pt: Yes Patient agreeable to treatment: Yes Consult Discharge Plan - Plan Referrals: Tao José, PAC [Physician Crabbing Machine Operator] - 04/19/17 1:30 pm (The above appointment is with Tao José.)
[2017-04-14] MEDS: Mirtazapine 15 MG TABLET PO SCH (21:45)
[2017-04-14] MEDS: traZODone 50 MG TABLET PO PRN (21:45)
[2017-04-14] MEDS: Ibuprofen 400 MG TABLET PO PRN (21:45)
[2017-04-14] MEDS: hydrOXYzine pamoate 25 MG CAPSULE PO PRN (23:21)
[2017-04-15] MEDS: Insulin LISPRO 300 UNITS/3 ML VIAL SQ SCH ×2 (08:31→11:47)
[2017-04-15] MEDS: Insulin DETEMIR 100 UNIT/ML X5UNITS SQ SCH (08:33)
[2017-04-15] MEDS: ARIPiprazole 10 MG TABLET PO SCH (08:33)
[2017-04-15] MEDS: *HR* Metformin 500 MG TABLET PO SCH (08:33)
[2017-04-15] MEDS: BuPROPion XL (24 HR) 150 MG TABLET PO SCH (08:33)
[2017-04-15] MEDS: Nicotine 21 MG PATCH.TD24 TD SCH (08:33)
[2017-04-15] MEDS: Baclofen 10 MG TABLET PO SCH (08:34)
[2017-04-15] MEDS: Lisinopril 20 MG TABLET PO SCH (08:34)
[2017-04-15] MEDS: Metoprolol XL (24 HR) Succ 50 MG TAB.ER.24H PO SCH (08:34)
[2017-04-15 08:48] VITALS: BP 148/89
--- NOTE | 2017-04-15 10:52 | Discharge Summary ---
Date of Encounter: 04/15/17 Time of Encounter: 11:51 Diagnosis - Discharge Diagnosis (1) Acute psychosis Status: Acute Medications - Discharge Medications Prescriptions: ARIPiprazole [Abilify] 10 mg PO DAILY #30 tablet traZODone [TraZODone] 50 mg PO HS PRN #30 tablet PRN Reason: Insomnia Metformin [Glucophage] 500 mg PO BID 07/11/15 [History] Baclofen [Lioresal] 10 mg PO DAILY 04/12/17 [History] Bupropion HCl [Wellbutrin Xl] 300 mg PO DAILY 04/12/17 [History] Insulin ASPART [Novolog Flexpen] 0 unit SQ TIDAC 04/12/17 [History] Insulin Glargine [Lantus] 25 unit SQ BID 04/12/17 [History] Lisinopril [Zestril] 20 mg PO DAILY 04/12/17 [History] Metoprolol XL (24 HR) Succ [Toprol Xl] 50 mg PO BID 04/12/17 [History] Mirtazapine [Remeron] 15 mg PO HS 04/12/17 [History] ARIPiprazole [Abilify] 10 mg PO DAILY #30 tablet 04/15/17 [Rx] traZODone [TraZODone] 50 mg PO HS PRN #30 tablet 04/15/17 [Rx] Allergies Cyclobenzaprine [From Flexeril] Adverse Reaction (Verified 12/22/16 14:27) See Comments "MOOD SWINGS" Results Procedures and tests throughout hospitalization: Completed Lab Orders Category Date Time Status Hgb A1C Routine Lab 04/13/17 10:24 Completed Provider Date of admission: 04/12/17 16:56 Primary care physician: PCP NO Discharging clinician: Jose Ramon Bowers Assessment and Plan - Patient/Caregiver Discharge Instructions Activity: resume usual activities as tolerated Diet: regular diet - Follow up Plan Follow up with: Fransisco Guevara [Outside] - 04/20/17 11:00 am (The above appointment is with Shannan for mental health counseling.) Tao José, PAC [Physician Brim Blocker] - 04/19/17 1:30 pm (The above appointment is with Tao José.) Functional capacity at discharge: independent ambulation Overall status at discharge: Stable Disposition: Home, Self-Care Hospital Course Hospital course: Mr. Ford is a 51 year old male admitted from the emergency room evaluation treatment of auditory or visual hallucinations. For details of admission please see H&P On the unit patient medications were reviewed, invega was discontinued and patient was started on Abilify 10 mg daily. Patient responded well to medication changes and prior to discharge denied any auditory or visual hallucinations and his sleep improved and was medically stable. He minimally participated in activities and denied any suicidal thoughts. His discharge plans were to go back to his rehabilitation program. - Time Spent with Patient Total time spent providing and/or coordinating discharge services: Less than 30 minutes Quality - Multiple Antipsychotics Patient discharged on 2 or more antipsychotic medications: No Procedures - Procedures Procedures: Medication Management, Crisis Stabilization, Supportive Therapy, Group Therapy, Psychoeducational Therapy Mental Status Exam - Mental Status Exam Patient orientation: Yes Person, Yes Time, Yes Place Level of alertness: Alert Patient appearance: Appropriate, Unkempt Behavior: calm, cooperative Psychomotor activity: Normal Eye contact: Maintains Eye Contact Mood description: Euthymic/stable Affect description: congruent with mood, full range Speech pattern: Normal rate, Normal rhythm, Normal tone Speech Volume: Normal Thought process: Linear, Goal Oriented Thought Content: No Suicidal ideation, No Homicidal ideation, No Overt delusions Perceptual Disturbances: No Auditory hallucinations, No Visual hallucinations Judgment: Limited Insight: Partial
== END 2017-04-15 13:55 | disposition home or self-care (01) | DRG 751 ==
LOC: EMEROO 15:11 → 1ANU 04-12 16:56
PROVIDERS: ADMIT Psychiatry & Neurology Psychiatry; ATTEND Psychiatry & Neurology Psychiatry

== ENCOUNTER 2019-05-19 04:39 | Inpatient (IN) ==
[2019-05-19] MEDS: 0.9 % Sodium Chloride 1,000 ML IVC SCH ×3 (08:23→18:42)
--- NOTE | 2019-05-19 09:05 | Internal Med History&Physical ---
Date of Encounter: 05/19/19 Time of Encounter: 09:05 Internal Medicine - H&P: HPI Chief complaint: erythema, pain and tenderness History of present illness: Mr. Ford is a 53 year old male with past medical history of IV drug abuse who presented to the ER with erythema, tenderness and swelling of the left upper extremity, his laboratory data was evidence for hyperglycemia above 500, hypokalemia and hyponatremia. , his imaging studies were suggestive of hypokalemia hyponatremia. abscess of the left upper extremity, the patient was treated with IV fluid and antibiotics at [facility] also was given sublingual to use insulin for hyperglycemia. His laboratory data revealed Surgery press operator carbon blocks was consulted to further evaluate and manage the abscess formation , the patient was admitted for further evaluation and management. Past Med Surg Social Fam HX - Past Medical History Medical history: asthma, COPD, diabetes, hyperlipidemia, hypertension Additional medical history: sleep apnea Psychiatric history: anxiety, depression, previous psychiatric hospitalization - Past Surgical History Surgical History: appendectomy, herniorrhaphy Additional surgical history: facial surgery for cellulitis, hernia repair, mass removed from stomach - Social History Smoking Status: Current every day smoker Smokeless Tobacco Status: No Alcohol use: none Drug use: methamphetamine, IV Drug Use - Family History Mother Living Status: Hx Family Cardiac Disorders: No Hx Family Respiratory Disorders: No Hx Family Cancer: No Hx Family GI Disorders: No Hx Family Genitourinary Disorders: No Hx Family Endocrine Disorder: Yes (Diabetes) Hx Family Musculoskeletal Disorders: No Hx Family Neuromuscular Disorders: No Hx Family Neurologic Disorders: No Hx Family HEENT Disorders: No Hx Family Autoimmune Disorders: No Hx Family Reproductive Disorders: No Hx Family Psychosocial Disorders: No Hx Family Medical Disorders: No Father Living Status: Cause of : Stroke Hx Family Cardiac Disorders: Yes Hx Family Respiratory Disorders: No Hx Family Cancer: No Hx Family GI Disorders: No Hx Family Genitourinary Disorders: No Hx Family Endocrine Disorder: Yes (Diabetes) Hx Family Musculoskeletal Disorders: No Hx Family Neuromuscular Disorders: No Hx Family Neurologic Disorders: No Hx Family HEENT Disorders: No Hx Family Autoimmune Disorders: No Hx Family Reproductive Disorders: No Hx Family Psychosocial Disorders: No Hx Family Medical Disorders: No Internal Medicine - H&P: Meds Baclofen [Lioresal] 10 mg PO DAILY 04/12/17 [History] Insulin Glargine [Lantus] 60 unit SQ BID 04/12/17 [History] Mirtazapine [Remeron] 15 mg PO TID 04/12/17 [History] traZODone [TraZODone] 50 mg PO HS PRN #30 tablet 04/15/17 [Rx] Metoprolol Tartrate [Lopressor] 50 mg PO BID #60 tablet 12/16/17 [Rx] Albuterol Sulfate [Proair Hfa] 1 puff IH Q6H PRN 05/21/19 [History] Insulin ASPART [NovoLOG] 10 unit SQ TIDAC 05/21/19 [History] Lisinopril [Zestril] 10 mg PO DAILY 05/21/19 [History] Montelukast [Singulair] 10 mg PO QPM 05/21/19 [History] metFORMIN [Glucophage] 500 mg PO BID 05/21/19 [History] cephALEXin [Keflex] 500 mg PO BID 7 Days #14 capsule 05/22/19 [Rx] Allergy/AdvReac Type Severity Reaction Status Date / Time Cyclobenzaprine AdvReac See Verified 12/22/16 14:27 [From Flexeril] Comments ROS unobtainable: due to mental status - Constitutional Vitals: Temp Pulse Resp BP Pulse Ox 98.4 F 96 16 172/97 99 05/19/19 06:29 05/19/19 06:29 05/19/19 06:29 05/19/19 06:29 05/19/19 06:29 Exam: . - Head Head exam: Present: atraumatic, normocephalic - Neck Neck exam general surgery: Present: supple, trachea midline. Absent: lymphadenopathy - Respiratory Respiratory exam: Present: CTAB. Absent: accessory muscle use, rales, rhonchi, wheezes - Cardiovascular Cardiovascular exam: Present: RRR, +S1, +S2. Absent: diastolic murmur, gallop, rubs, systolic murmur - GI/Abdominal GI/Abdominal exam: Present: normal bowel sounds, soft, no peritoneal signs. Absent: distended, tenderness - Extremities Exam Extremities exam: Present: tenderness, warm, radial pulses palpable and symmetrical. Absent: calf tenderness, cyanotic, pedal edema Additional comments: Swelling and erythema on the medial and posterior aspect of the elbow. Internal Med - H&P Results - Labs CBC & Chem 7: 05/22/19 04:27 05/22/19 04:27 - Assessment and Plan (1) Diabetes Status: Chronic Assessment and plan: the patient is not compliant with medication, he was treated with subcutaneous insulin for blood sugar above 500 at [facility], repeat blood sugar on arrival was 236, we'll start the patient on insulin sliding scale with regular coverage, will obtain hemoglobin A1c. Qualifiers: Diabetes mellitus type: type 2 Diabetes mellitus detention insulin use: with manager long term care use Diabetes mellitus complication status: with hyperglycemia Qualified Code(s): E11.65 - Type 2 diabetes mellitus with hyperglycemia; Z79.4 - group home (current) use of insulin (2) Left arm cellulitis Status: Acute Assessment and plan: we will consulted surgery for further evaluation and management, was started broad spectrum antibiotic with vancomycin and Zosyn, we'll follow blood culture and adjust regimen accordingly (3) IV drug abuse Status: Chronic (4) Abscess of left arm Status: Acute (5) Noncompliance Status: Chronic (6) Hypertension Status: Chronic Assessment and plan: we'll continue blood pressure regimen , continue to monitor blood pressure while inpatient and adjust regimen accordingly Qualifiers: Hypertension type: essential hypertension Qualified Code(s): I10 - Es sential (primary) hypertension - Time Spent With Patient Total time spent is greater than 50% in coordination of care (as documented) at patient's floor/unit and/or counseling patient:
[2019-05-19] MEDS ORDERED: D5% in Water 1,000 ML IVC PRN ×2 (09:08→18:04)
[2019-05-19] MEDS ORDERED: Dextrose Gel 15 GM/37.5 ML TUBE PO PRN ×4 (09:08→18:04)
[2019-05-19] MEDS ORDERED: *HR* Dextrose 50 % in Water (Syg) 50 ML SYRINGE IVP PRN ×2 (09:08→18:04)
[2019-05-19] MEDS ORDERED: Ondansetron 4 MG/2 ML VIAL IVP PRN ×2 (09:17→18:04)
[2019-05-19] MEDS ORDERED: Acetaminophen 325 MG TABLET PO PRN ×2 (09:17→18:04)
[2019-05-19] MEDS ORDERED: Naloxone 0.4 MG/ML INJ IVP PRN ×2 (09:17→18:04)
[2019-05-19] MEDS ORDERED: *HR* HYDROcodone/Acet 5/325 mg TABLET PO PRN (09:17)
[2019-05-19] MEDS ORDERED: Vancomycin (wt based) 1,000 MG VIAL IVPB SCH (10:00)
[2019-05-19 11:42] LABS: Basophils # 0.1 K/mcL (0.0-0.2); Basophils % 0.4 %; Eosinophils # 0.1 K/mcL (0.0-0.6); Eosinophils % 0.2 %; Hematocrit 37.3 % (37.5-50.1); Hemoglobin 12.8 g/dL (12.9-16.9); Immature Granulocytes % 0.8 % (0-4); Lymphocytes # 2.9 K/mcL (0.6-4.6); Mean Corpuscular HGB Conc 34.3 g/dL (31.6-35.5); Mean Corpuscular Hemoglobin 29.8 pg (28.0-33.3); Mean Corpuscular Volume 86.7 fL (83.0-100.0); Monocytes # 1.3 K/mcL (0.0-1.3); Monocytes % 5.2 %; Neutrophils # 19.7 K/mcL (1.6-8.9); Platelet Count 292 K/mcL (140-400); Red Cell Distribution Width 12.5 % (11.5-14.5); Segmented Neutrophils % 81.4 %; White Blood Count 24.2 K/mcL (4.3-11.1)
[2019-05-19 11:51] LABS: Prothrombin Time 11.8 Seconds (9.4-12.1)
[2019-05-19 11:53] LABS: Activated Partial Thrombo Time 27.5 Seconds (26.0-36.0)
[2019-05-19 11:59] LABS: Alanine Aminotransferase 55 Units/L (7-52); Albumin 2.2 g/dL (3.5-5.7); Albumin/Globulin Ratio 0.6 (1.1-2.2); Alkaline Phosphatase 117 Units/L (34-104); Aspartate Amino Transferase 33 Units/L (13-39); BUN/Creatinine Ratio 17 (6-26); Bilirubin,Total 0.6 mg/dL (0.3-1.0); Blood Urea Nitrogen 8 mg/dL (6-20); Calcium 7.7 mg/dL (8.6-10.3); Carbon Dioxide 26 mEq/L (23-29); Chloride 98 mEq/L (98-107); Globulin 3.9 g/dL (2.4-3.5); Glucose 253 mg/dL (70-105); Magnesium 1.6 mg/dL (1.6-2.6); Osmolality,Calculated 281 (280-300); Phosphorous 2.4 mg/dL (2.7-4.5); Potassium 3.2 mEq/L (3.5-5.1); Sodium 132 mEq/L (136-145); Total Protein 6.1 g/dL (6.4-8.9); eGFR For African Americans > 60 (> 60); eGFR For Non-African Americans > 60 (> 60)
[2019-05-19] MEDS: Insulin LISPRO 300 UNITS/3 ML VIAL SQ SCH ×2 (12:38→17:54)
[2019-05-19 12:54] LABS: Estimated Average Glucose 352 mg/dl
--- NOTE | 2019-05-19 14:24 | Orthopedic Consult Note ---
Date of Encounter: 05/19/19 Time of Encounter: 14:22 Assessment and Plan (1) Abscess of left arm Current Visit: No Status: Acute Discussed with patient to be scheduled for an incision drainage of abscess. We discussed that the wound be left open partially and packing. He will need to do wound care. Also require I am antibiotics for a few days and then transition to oral antibiotics. Also will aspirate this joint to make sure there is no purulent fluid within the joint. (2) Septic olecranon bursitis of left elbow Current Visit: Yes Status: Acute We will also drain the olecranon bursa from a separate incision. History of Present Illness Chief complaint: Left forearm/elbow pain and swelling HPI: Mr. Ford is a 53 year old male who is right-hand dominant, was self injecting heroin a week ago when his arm became swollen and hot. He started noticing changes on Tuesday. The patient states this was a one-time incident of self injecting heroin. He reports severe pain in the arm. Denies fevers and chills. Patient lives alone by himself in an [facility] in [facility]. Past Med Surg Social Fam HX - Past Medical History Medical history: asthma, COPD, diabetes, hyperlipidemia, hypertension Additional medical history: sleep apnea Psychiatric history: anxiety, depression, previous psychiatric hospitalization - Past Surgical History Surgical History: appendectomy, herniorrhaphy Additional surgical history: facial surgery for cellulitis, hernia repair, mass removed from stomach - Social History Smoking Status: Current every day smoker Smokeless Tobacco Status: No Alcohol use: none Drug use: methamphetamine, IV Drug Use Current living situation: Home - Independent Activity Level: Independent ambulation - Family History Mother Living Status: Hx Family Cardiac Disorders: No Hx Family Respiratory Disorders: No Hx Family Cancer: No Hx Family GI Disorders: No Hx Family Genitourinary Disorders: No Hx Family Endocrine Disorder: Yes (Diabetes) Hx Family Musculoskeletal Disorders: No Hx Family Neuromuscular Disorders: No Hx Family Neurologic Disorders: No Hx Family HEENT Disorders: No Hx Family Autoimmune Disorders: No Hx Family Reproductive Disorders: No Hx Family Psychosocial Disorders: No Hx Family Medical Disorders: No Father Living Status: Cause of : Stroke Hx Family Cardiac Disorders: Yes Hx Family Respiratory Disorders: No Hx Family Cancer: No Hx Family GI Disorders: No Hx Family Genitourinary Disorders: No Hx Family Endocrine Disorder: Yes (Diabetes) Hx Family Musculoskeletal Disorders: No Hx Family Neuromuscular Disorders: No Hx Family Neurologic Disorders: No Hx Family HEENT Disorders: No Hx Family Autoimmune Disorders: No Hx Family Reproductive Disorders: No Hx Family Psychosocial Disorders: No Hx Family Medical Disorders: No Medications and Allergies Metformin [Glucophage] 500 mg PO BID 07/11/15 [History] Baclofen [Lioresal] 10 mg PO DAILY 04/12/17 [History] Bupropion HCl [Wellbutrin Xl] 300 mg PO DAILY 04/12/17 [History] Insulin ASPART [Novolog Flexpen] 0 unit SQ TIDAC 04/12/17 [History] Insulin Glargine [Lantus] 25 unit SQ BID 04/12/17 [History] Lisinopril [Zestril] 20 mg PO DAILY 04/12/17 [History] Metoprolol XL (24 HR) Succ [Toprol Xl] 50 mg PO BID 04/12/17 [History] Mirtazapine [Remeron] 15 mg PO HS 04/12/17 [History] ARIPiprazole [Abilify] 10 mg PO DAILY #30 tablet 04/15/17 [Rx] traZODone [TraZODone] 50 mg PO HS PRN #30 tablet 04/15/17 [Rx] Insulin Glargine [Lantus] 25 unit SQ BID #3 mls 12/16/17 [Rx] Metoprolol Tartrate [Lopressor] 50 mg PO BID #60 tablet 12/16/17 [Rx] Mirtazapine [Remeron] 15 mg PO HS #30 tablet 12/16/17 [Rx] metFORMIN [Glucophage] 500 mg PO BIDWM #60 tablet 12/16/17 [Rx] Levofloxacin [Levaquin] 500 mg PO DAILY #7 tablet 05/01/18 [Rx] Allergy/AdvReac Type Severity Reaction Status Date / Time Cyclobenzaprine AdvReac See Verified 12/22/16 14:27 [From Flexeril] Comments All Systems Reviewed: The remainder of the systems were reviewed and are negative Physical Exam - Constitutional Vitals: Temp Pulse Resp BP Pulse Ox 98.8 F 87 16 156/94 98 05/19/19 11:35 05/19/19 11:35 05/19/19 11:35 05/19/19 11:35 05/19/19 11:35 General appearance IM: A&O X 3, answers questions appropriately Exam: Left upper extremity: Swelling and erythema on the medial aspect of the elbow. He has mild swelling over down the wrist. Also swelling in the posterior aspect of the elbow. On palpation medial aspect of the upper arm/elbow/forearm is tender and warm. The olecranon bursa is fluctuant. Range of motion elbow is from 10 degrees to 90 degrees. Full range of motion of wrist and digits. Radial pulse is 1+. Capillary fill is less than 2 seconds. Mild numbness and tingling in fingertips which is baseline. Results - Labs Result Diagrams: 05/19/19 10:05 05/19/19 10:05 Labs: Abnormal lab results WBC 24.2 K/mcL (4.3-11.1) H 05/19/19 10:05 Hgb 12.8 g/dL (12.9-16.9) L 05/19/19 10:05 Hct 37.3 % (37.5-50.1) L 05/19/19 10:05 19.7 K/mcL (1.6-8.9) H 05/19/19 10:05 Sodium 132 mEq/L (136-145) L D 05/19/19 10:05 Potassium 3.2 mEq/L (3.5-5.1) L 05/19/19 10:05 0.47 mg/dL (0.70-1.30) L 05/19/19 10:05 Glucose 253 mg/dL (70-105) H 05/19/19 10:05 13.9 % (-5.6) H 05/19/19 10:05 Calcium 7.7 mg/dL (8.6-10.3) L 05/19/19 10:05 Phosphorus 2.4 mg/dL (2.7-4.5) L 05/19/19 10:05 ALT 55 Units/L (7-52) H 05/19/19 10:05 117 Units/L (34-104) H 05/19/19 10:05 6.1 g/dL (6.4-8.9) L 05/19/19 10:05 2.2 g/dL (3.5-5.7) L 05/19/19 10:05 3.9 g/dL (2.4-3.5) H 05/19/19 10:05 0.6 (1.1-2.2) L 05/19/19 10:05 H & H 05/19/19 Range/Units 10:05 Hgb 12.8 L (12.9-16.9) g/dL Hct 37.3 L (37.5-50.1) % All other labs normal. - Diagnostic results Knee CT: report reviewed (Soft tissue abscess and proximal forearm with muscle extension, effusion elbow joint.) Consult Discharge Plan - Plan Referrals: NONE,PCP [Primary Care Provider] -
--- NOTE | 2019-05-19 14:38 | Anesthesia Evaluation PreOp ---
Date of Encounter: 05/19/19 Time of Encounter: 14:58 - Past History Planned Operation: Left Forearm I & D Cardiac History: HTN, Hyperlipidemia Pulmonary History: Smoker (45 years), Asthma, COPD, LEONEL Dx (does not use CPAP) AUTO JOB ESTIMATOR History: Denies Any Significant HX Other Medical History: Renal (hepatitis C), Diabetes Type II, Other (anxiety/depression) Anesthesia History: No Prior Anesthetic Complications, Past Anesthesia Alcohol Use: none Drug use: methamphetamine (last used 3 days ago, has been using for 25 years), IV Drug Use Medications and Allergies Metformin [Glucophage] 500 mg PO BID 07/11/15 [History] Baclofen [Lioresal] 10 mg PO DAILY 04/12/17 [History] Bupropion HCl [Wellbutrin Xl] 300 mg PO DAILY 04/12/17 [History] Insulin ASPART [Novolog Flexpen] 0 unit SQ TIDAC 04/12/17 [History] Insulin Glargine [Lantus] 25 unit SQ BID 04/12/17 [History] Lisinopril [Zestril] 20 mg PO DAILY 04/12/17 [History] Metoprolol XL (24 HR) Succ [Toprol Xl] 50 mg PO BID 04/12/17 [History] Mirtazapine [Remeron] 15 mg PO HS 04/12/17 [History] ARIPiprazole [Abilify] 10 mg PO DAILY #30 tablet 04/15/17 [Rx] traZODone [TraZODone] 50 mg PO HS PRN #30 tablet 04/15/17 [Rx] Insulin Glargine [Lantus] 25 unit SQ BID #3 mls 12/16/17 [Rx] Metoprolol Tartrate [Lopressor] 50 mg PO BID #60 tablet 12/16/17 [Rx] Mirtazapine [Remeron] 15 mg PO HS #30 tablet 12/16/17 [Rx] metFORMIN [Glucophage] 500 mg PO BIDWM #60 tablet 12/16/17 [Rx] Levofloxacin [Levaquin] 500 mg PO DAILY #7 tablet 05/01/18 [Rx] Allergy/AdvReac Type Severity Reaction Status Date / Time Cyclobenzaprine AdvReac See Verified 12/22/16 14:27 [From Flexeril] Comments - Meds/Allergy Pre-op Review Medications Reviewed: Yes Allergies Reviewed: Yes Beta Blockers on Current Med List: Yes If Beta Blockers taken, Date/Time (Last Dose taken): has not been taking Anesthesia Results - Labs 05/19/19 10:05 05/19/19 10:05 Anesthesia Exam Vital Signs/O2 Sat/Glucose, Most Recent Temp Pulse Resp BP Pulse Ox 98.8 F 87 16 156/94 98 05/19/19 11:35 05/19/19 11:35 05/19/19 11:35 05/19/19 11:35 05/19/19 11:35 Blood Glucose* 235 Height: 5'7''/1.7m Weight: 137 lbs/62.5 kg NPO (# of Hours): 8 Pain Scale: 8 (left arm) Pain Scale Used: Numeric (1 - 10) - HEENT Pupil (Motor): EOMI Mallampati: II Teeth: Edentulous Oral Opening: Greater than 3 - AUTO JOB ESTIMATOR LOC: Oriented AUTO JOB ESTIMATOR Motor: Normal RUE, Normal LUE, Normal RLE, Normal LLE, Normal Face AUTO JOB ESTIMATOR Sensory: Normal: RUE, LUE, RLE, LLE, Face - Cardiac Rhythm: Regular Murmur: None - Pulmonary Breath Sounds: bilateral Clear Respiratory Effort: Symmetrical Anesthesia Assess/Plan ASA Score: 4 Level of consciousness: Cooperative, Oriented, Tranquil Anesthetic Plan: General Monitoring Plan: Standard Monitors Recovery Plan: PACU
[2019-05-19] MEDS ORDERED: Albuterol 2.5 MG/3 ML NEBULIZER IH ONE (14:49)
[2019-05-19] MEDS ORDERED: Albuterol 2.5 MG/3 ML NEBULIZER ONE (14:50)
[2019-05-19] MEDS ORDERED: *HR* OxyCODONE Immed Rel 5 MG TABLET PO PRN ×2 (14:59→18:04)
[2019-05-19] MEDS ORDERED: *HR* HYDROmorphone (PF) 1 MG/ML SYRINGE IVP PRN (14:59)
[2019-05-19] MEDS ORDERED: *HR* FentaNYL (PF) 100 MCG/2 ML VIAL ONE (15:02)
[2019-05-19] MEDS ORDERED: *HR* Propofol 200 MG/20 ML VIAL IVP ONE (15:03)
[2019-05-19] MEDS ORDERED: *HR* Midazolam HCl 2 MG/2 ML VIAL ONE (15:03)
[2019-05-19] MEDS ORDERED: Lidocaine -MPF 4% 5 ML AMPUL ONE (15:04)
[2019-05-19] MEDS ORDERED: Lidocaine -MPF 2% 2 ML VIAL ONE (15:04)
[2019-05-19] MEDS ORDERED: Ondansetron 4 MG/2 ML VIAL ONE (15:55)
[2019-05-19] MEDS ORDERED: *HR* Metoprolol 5 MG/5 ML VIAL IVP ONE (15:55)
[2019-05-19] MEDS ORDERED: Dexamethasone 4 MG/ML VIAL ONE (15:55)
[2019-05-19] MEDS: Piperacillin/Tazobactam 3.375 GM in 0.9 % Sodium Chloride Mini Bag 100 ML IVPB SCH ×2 (16:33→18:06)
--- NOTE | 2019-05-19 16:39 | Operative Note ---
Date of procedure: 05/19/19 Pre-op diagnosis: Left upper extremity abscess, septic olecranon bursitis, elbow joint effus Post-op diagnosis: other (Left upper extremity medial elbow abscess extending proximally into the upper arm and also to distal midforearm, olecranon bursitis, elbow joint effusion) Procedure: Left upper extremity incision and drainage of deep abscess from upper arm down to forearm, and into the muscle Left elbow excision of olecranon bursa Left elbow joint aspiration Anesthesia: GETA Surgeon: Yunier Crandall Was there an respiratory care assistant present: No Estimated blood loss (cc): 30 Tourniquet Time (Minutes): 20 Specimen: Cultures 3, pathology, cell count from synovial fluid Condition: stable Disposition: PACU Procedure in Detail: The patient was brought into the operating room and placed on or table in supine position. He underwent general anesthesia. The left upper extremity was prepped and draped in usual sterile fashion. A sterile tourniquet was placed on his left arm close to the axilla, A timeout was performed. The left extremity was elevated, exsanguinated from the hand to mid forearm with an Shimon wrap, elevated for 3 minutes and the tourniquet was raised to a pressure of 250 mmHg. Using an 18-gauge needle, I into the joint through the posterior lateral soft spot and aspirated 10 mL of clear yellow fluid. This fluid was sent off for cultures, aerobic and anaerobic; and also for cell count. The left upper extremity was then draped across patient's chest. A 6 cm longitudinal posterior incision made from the tip of olecranon going distally. The bursa was incised with clear yellow fluid. No purulent fluid was enc ountered. Full-thickness skin flaps were elevated along with significant edema fluid pouring out. The fluid from the olecranon bursa was also cultured. The inflamed olecranon bursa was sharply excised of the triceps tendon/ulnar crest/muscle fascia. This was sent off as a pathology specimen. The bed was cauterized with Bovie electrocautery. Since this area did not appear grossly infected, the skin was closed with 3-0 nylon vertical mattress and simple sutures. The distal 1 cm was left open. Next, moving to the medial aspect of the elbow, a 15 cm medial curvilinear incision was made centered over the swollen fluctuant area of the elbow. The subcutaneous tissues plane dissected and copious amounts of purulent fluid was encountered. Cultures for aerobic and anaerobic were taken and sent off to microbiology. Retractors were used to get good exposure, the pocket extended anteriorly and proximally over the biceps muscle belly. The fascia over the flexor/pronator muscle extending from the epicondyle going distally was pretty destroyed. The muscle was bluntly spread. The tourniquet was deflated, once again copiously irrigated with normal saline. A medullary irrigated the muscle fascia and muscle tissue as well, copiously with normal saline. The full-thickness skin and subcutaneous tissue was closed with 2-0 nylon vertical mattress sutures followed by 3-0 nylon vertical mattress and simple sutures. A 1 cm opening was left proximally and distally. The open areas were then filled with quarter-inch iodoform packing. Sterile dressings were applied. The patient was extubated and taken to the recovery room.
[2019-05-19] MEDS: *HR* Labetalol 20 MG/4 ML SYRINGE IVP PRN ×3 (16:56→17:09)
[2019-05-19] MEDS ORDERED: *HR* Labetalol 20 MG/4 ML SYRINGE IVP ONE (16:57)
--- NOTE | 2019-05-19 17:15 | Anesthesia Evaluation Post Op ---
Date of Encounter: 05/19/19 Time of Encounter: 17:15 - Vital Signs Vital Signs: Vital Signs/O2 Sat, Most Current Temp Pulse Resp BP Pulse Ox 98.1 F 73 16 143/100 99 05/19/19 17:08 05/19/19 17:08 05/19/19 17:08 05/19/19 17:08 05/19/19 17:08 - Lungs Lungs: Clear Ascult./Percussion - Airway Airway: Non-obstructed - Cardiovascular Regular Rate - Mental Status Mental Status: Asleep with brisk response to light stimulation - Pain Pain Scale: 0 Pain Scale used: Numeric (1 - 10) - Nausea Vomiting Nausea Vomiting: Not Present - Hydration Hydration: NPO, Has not voided - Discharge PostOp Status: Transfer Patient to floor
[2019-05-19 17:54] LABS: Source,Synovial Fluid Left Elbow Joint
[2019-05-19 19:00] LABS: Color,Synovial Fluid Straw (Straw)
[2019-05-19 19:01] LABS: Appearance,Synovial Fluid Hazy (Clear-Hazy)
[2019-05-20] MEDS: Insulin LISPRO 300 UNITS/3 ML VIAL SQ SCH ×5 (00:15→20:05)
[2019-05-20 01:39] LABS: Basophils % 0.3 %; Eosinophils % 0.1 %; Hemoglobin 13.3 g/dL (12.9-16.9)
[2019-05-20 01:41] LABS: Basophils # 0.1 K/mcL (0.0-0.2); Hematocrit 39.4 % (37.5-50.1); Immature Granulocytes % 0.7 % (0-4); Lymphocytes # 2.4 K/mcL (0.6-4.6); Lymphocytes % 8.9 %; Mean Corpuscular HGB Conc 33.8 g/dL (31.6-35.5); Mean Corpuscular Volume 88.9 fL (83.0-100.0); Mean Platelet Volume 10.6 fL (9.4-12.4); Monocytes # 1.1 K/mcL (0.0-1.3); Platelet Count 401 K/mcL (140-400); Red Blood Count 4.43 M/mcL (4.19-5.50); Red Cell Distribution Width 12.5 % (11.5-14.5); White Blood Count 26.8 K/mcL (4.3-11.1)
[2019-05-20 01:45] LABS: Neutrophils # 23.1 K/mcL (1.6-8.9)
[2019-05-20 01:52] LABS: Alanine Aminotransferase 47 Units/L (7-52); Albumin 2.1 g/dL (3.5-5.7); Albumin/Globulin Ratio 0.5 (1.1-2.2); Alkaline Phosphatase 103 Units/L (34-104); Aspartate Amino Transferase 27 Units/L (13-39); BUN/Creatinine Ratio 23 (6-26); Bilirubin,Total 0.4 mg/dL (0.3-1.0); Blood Urea Nitrogen 15 mg/dL (6-20); Calcium 7.7 mg/dL (8.6-10.3); Carbon Dioxide 23 mEq/L (23-29); Chloride 99 mEq/L (98-107); Chol/HDL Ratio 3.6 (0-4.9); Cholesterol 125 mg/dL (< 200); Globulin 3.9 g/dL (2.4-3.5); Glucose 386 mg/dL (70-105); HDL Cholesterol 35 mg/dL (40-59); LDL Cholesterol,Calculated 76 mg/dL (0-99); Magnesium 1.9 mg/dL (1.6-2.6); Osmolality,Calculated 281 (280-300); Phosphorous 3.5 mg/dL (2.7-4.5); Potassium 3.4 mEq/L (3.5-5.1); Prothrombin Time 11.4 Seconds (9.4-12.1); Sodium 127 mEq/L (136-145); Triglycerides 68 mg/dL (< 150); eGFR For African Americans > 60 (> 60); eGFR For Non-African Americans > 60 (> 60)
[2019-05-20 01:55] LABS: Activated Partial Thrombo Time 26.3 Seconds (26.0-36.0)
[2019-05-20] MEDS: Piperacillin/Tazobactam 3.375 GM in 0.9 % Sodium Chloride Mini Bag 100 ML IVPB SCH ×3 (02:20→17:28)
[2019-05-20] MEDS: *HR* HYDROcodone/Acet 5/325 mg TABLET PO PRN ×3 (03:36→20:16)
[2019-05-20] MEDS: 0.9 % Sodium Chloride 1,000 ML IVC SCH ×2 (06:08→17:27)
--- NOTE | 2019-05-20 08:06 | Internal Med Progress Note ---
Hospitalist Progress Note - Encounter Date of Encounter: 05/20/19 Time of Encounter: 12:30 - Subjective Interval History: Mr Ford is currently admitted for L upper extremity abscess s/p I&D. Cx pending. He remains moderate to high risk due to potential for worsening clinical status. Mr Ford is eating lunch. Pain controlled at this time. He says he is feeling better. No fever or chills. No CP or SOB. Sodium low this AM. Tolerating diet at this time. - Exam Vitals: Temp Pulse Resp BP Pulse Ox 98.4 F 88 16 154/98 97 05/20/19 07:10 05/20/19 07:10 05/20/19 07:10 05/20/19 07:10 05/20/19 07:10 Exam: Gen: Thin male comfortable in bed. Arm suspended at bedside. Head: Normocephalic EENT: Mucus membranes dry. No lesion. Neck: Supple. Heart: Regular. Not tachycardic Lungs: Clear bilaterally. ABd: Soft and nontender Ext: LUE suspended. No edema Neuro: Alert and oriented. Skin: No rash. - Assessment and Plan (1) Abscess of left arm Current Visit: No Status: Acute Assessment and Plan: Pt presented with abscess of skin. He is s/p I&D. Cultures pending. Continue abx as currently ordered. (2) Left arm cellulitis Current Visit: No Status: Acute Assessment and Plan: Dressing intact. Continue IV abx as ordered pending culture results. (3) Noncompliance Current Visit: No Status: Chronic Assessment and Plan: Chronic issue (4) IV drug abuse Current Visit: No Status: Chronic Assessment and Plan: Chronic issue. (5) Diabetes Current Visit: Yes Status: Chronic Assessment and Plan: Pt blood sugar uncontrolled on admission. Seems to be improving with abx and insulin. Will continue same dose for now (6) Hypertension Current Visit: Yes Status: Chronic Assessment and Plan: Uncontrolled today. Will adjust medications. (7) Septic olecranon bursitis of left elbow Current Visit: Yes Status: Acute Assessment and Plan: Cultures pending. Continue IV abx. - Time Spent with Patient Total time spent is greater than 50% in coordination of care (as documented) at patient's floor/unit and/or counseling patient: Internal Medicine: Result - Labs CBC & Chem 7: 05/20/19 01:15 05/20/19 01:15 Labs: Short CBC 05/19/19 05/20/19 Range/Units 10:05 01:15 WBC 24.2 H 26.8 H (4.3-11.1) K/mcL Hgb 12.8 L 13.3 (12.9-16.9) g/dL Hct 37.3 L 39.4 (37.5-50.1) % Plt Count 292 401 H (140-400) K/mcL Neutrophils # 19.7 H 23.1 H (1.6-8.9) K/mcL BMP 05/19/19 05/20/19 10:05 01:15 Sodium 132 L D 127 L Potassium 3.2 L 3.4 L Chloride 98 99 Carbon Dioxide 26 23 BUN 8 15 Creatinine 0.47 L 0.65 L Glucose 253 H 386 H Calcium 7.7 L 7.7 L Liver Function 05/19/19 05/20/19 Range/Units 10:05 01:15 Total Bilirubin 0.6 0.4 (0.3-1.0) mg/dL AST 33 27 (13-39) Units/L ALT 55 H 47 (7-52) Units/L Alkaline Phosphatase 117 H 103 (34-104) Units/L Albumin 2.2 L 2.1 L (3.5-5.7) g/dL - ABG Interpretation ABG results: PT/INR, D-dimer PT 11.4 Seconds (9.4-12.1) 05/20/19 01:15 Consult Discharge Plan - Plan Referrals: NONE,PCP [Primary Care Provider] - (5) Diabetes Qualifiers: Diabetes mellitus type: type 2 Diabetes mellitus senior care insulin use: with senior care use Diabetes mellitus complication status: with hyperglycemia Qualified Code(s): E11.65 - Type 2 diabetes mellitus with hyperglycemia; Z79.4 - long term care pharmacist (current) use of insulin (6) Hypertension Qualifiers: Hypertension type: essential hypertension Qualified Code(s): I10 - Essential (primary) hypertension
[2019-05-20] MEDS ORDERED: *HR* OxyCODONE/APAP 5/325 TABLET PO ONE (13:58)
--- NOTE | 2019-05-20 15:03 | Orthopedics Progress Note ---
Date of Encounter: 05/20/19 Time of Encounter: 15:00 - Assessment and Plan (1) Abscess of left arm Current Visit: No Status: Acute (2) Septic olecranon bursitis of left elbow Current Visit: Yes Status: Acute Subjective Principal diagnosis: Left upper extremity abscess Interval history: The patient states he is feeling a lot better today, his pain is controlled on oral [place] Left upper extremity: Removed from stockinette, dressings were taken down- swelling is down in the hand and wrist, swelling is considerably reduced from the upper arm and elbow. The 3 sets of packing were pulled and there was considerable bloody drainage. His arm feels soft now, and more fluid was expressed. He has much improved range of motion of the elbow. Grossly neurovascular intact distally. His wounds were cleansed and redressed. Assessment: Postoperative day #1, clinically significantly improved White blood count is still very elevated Plan: Continue IV vancomycin and Zosyn Continue elevation Patient was encouraged to do hand and elbow exercises Start dressing changes 3 times daily Repeat labs tomorrow We will check on cultures Objective Vital signs: Vital Signs Temp Pulse Resp BP Pulse Ox 05/20/19 10:54 98.2 F 91 16 160/97 97 05/20/19 07:10 98.4 F 88 16 154/98 97 05/20/19 02:25 97.8 F 95 16 155/98 98 05/19/19 22:45 98.0 F 95 18 128/89 95 05/19/19 20:27 97.7 F 92 16 151/91 98 05/19/19 19:26 81 17 144/82 97 05/19/19 18:20 81 17 132/84 94 05/19/19 18:07 73 16 150/87 97 05/19/19 17:37 98 F 76 17 137/86 99 05/19/19 17:18 98.1 F 72 16 142/85 97 05/19/19 17:08 98.1 F 73 16 143/100 99 05/19/19 16:58 81 16 152/94 99 05/19/19 16:48 84 16 150/102 96 05/19/19 16:38 97.5 F L 85 16 137/98 99 Intake and Output 05/19/19 05/20/19 05/20/19 23:59 07:59 15:59 Intake Total 1000 / 1000 2500 / 3690 1190 / 3690 Output Total 130 / 405 500 / 500 Balance 870 / 595 2000 / 3190 1190 / 3190 Intake: IV Fluids 1000 / 1000 1700 / 2050 350 / 2050 0.9 % Sodium Chloride 1,000 ML 1000 / 1000 1000 / 1000 @ 100 mls/hr IVC .Q10H [facility] Rx#: [id number] Zosyn 3.375 GM In 0.9 % Sodium 200 / 300 100 / 300 Chloride (Mini-Bag +) 100 ML @ 25 mls/hr IVPB Q8H [facility] Rx#: [id number] Vancocin 1,000 MG In 0.9 % 500 / 750 250 / 750 Sodium Chloride 250 ML @ 167 mls/hr IVPB Q12H [facility] Rx#: [id number] Oral 0 / 0 800 / 1640 840 / 1640 Output: Urine 100 / 375 500 / 500 Estimated Blood Loss 30 30 Other: Meal NPO water pitcher Lunch Percent of Meal Consumed 0% 0% 100% Weight 64.6 kg Blood Glucose* 364 235 193 Patient Weight 05/20/19 23:59 Weight 64.6 kg - Labs CBC & BMP: 05/20/19 01:15 05/20/19 01:15 Labs: Abnormal lab results WBC 26.8 K/mcL (4.3-11.1) H 05/20/19 01:15 Hgb 12.8 g/dL (12.9-16.9) L 05/19/19 10:05 Hct 37.3 % (37.5-50.1) L 05/19/19 10:05 Plt Count 401 K/mcL (140-400) H 05/20/19 01:15 23.1 K/mcL (1.6-8.9) H 05/20/19 01:15 Slight increase (Normal) H 05/20/19 01:15 Sodium 127 mEq/L (136-145) L 05/20/19 01:15 Potassium 3.4 mEq/L (3.5-5.1) L 05/20/19 01:15 0.65 mg/dL (0.70-1.30) L 05/20/19 01:15 Glucose 386 mg/dL (70-105) H 05/20/19 01:15 POC Glucose 235 mg/dL (70-99) H 05/20/19 05:34 13.9 % (-5.6) H 05/19/19 10:05 Calcium 7.7 mg/dL (8.6-10.3) L 05/20/19 01:15 Phosphorus 2.4 mg/dL (2.7-4.5) L 05/19/19 10:05 ALT 55 Units/L (7-52) H 05/19/19 10:05 117 Units/L (34-104) H 05/19/19 10:05 6.0 g/dL (6.4-8.9) L 05/20/19 01:15 2.1 g/dL (3.5-5.7) L 05/20/19 01:15 3.9 g/dL (2.4-3.5) H 05/20/19 01:15 0.5 (1.1-2.2) L 05/20/19 01:15 35 mg/dL (40-59) L 05/20/19 01:15 Synovial Tot Nuc Cell 1388 TNC/mcL (0-200) H 05/19/19 15:40 Consult Discharge Plan - Plan Referrals: NONE,PCP [Primary Care Provider] -
[2019-05-20] MEDS: Lisinopril 20 MG TABLET PO SCH (16:10)
[2019-05-20 17:27] LABS: Sodium, Urine 29.1 mEq/L
[2019-05-21] MEDS: 0.9 % Sodium Chloride 1,000 ML IVC SCH ×2 (00:32→18:34)
[2019-05-21] MEDS: *HR* HYDROcodone/Acet 5/325 mg TABLET PO PRN ×4 (02:07→22:36)
[2019-05-21] MEDS: Piperacillin/Tazobactam 3.375 GM in 0.9 % Sodium Chloride Mini Bag 100 ML IVPB SCH ×3 (02:08→18:28)
[2019-05-21 04:04] LABS: Hematocrit 35.1 % (37.5-50.1); Mean Corpuscular Hemoglobin 29.5 pg (28.0-33.3); Mean Corpuscular Volume 89.3 fL (83.0-100.0); Mean Platelet Volume 10.9 fL (9.4-12.4); Platelet Count 357 K/mcL (140-400); Red Blood Count 3.93 M/mcL (4.19-5.50); Red Cell Distribution Width 12.7 % (11.5-14.5); White Blood Count 13.7 K/mcL (4.3-11.1)
[2019-05-21 04:05] LABS: Hemoglobin 11.6 g/dL (12.9-16.9)
[2019-05-21 04:23] LABS: BUN/Creatinine Ratio 22 (6-26); Blood Urea Nitrogen 15 mg/dL (6-20); Calcium 7.6 mg/dL (8.6-10.3); Carbon Dioxide 26 mEq/L (23-29); Chloride 99 mEq/L (98-107); Glucose 349 mg/dL (70-105); Magnesium 1.7 mg/dL (1.6-2.6); Osmolality,Calculated 291 (280-300); Potassium 3.8 mEq/L (3.5-5.1); Sodium 133 mEq/L (136-145); eGFR For African Americans > 60 (> 60); eGFR For Non-African Americans > 60 (> 60)
[2019-05-21] MEDS: Lisinopril 20 MG TABLET PO SCH (09:47)
[2019-05-21] MEDS: Insulin LISPRO 300 UNITS/3 ML VIAL SQ SCH ×4 (09:49→20:42)
--- NOTE | 2019-05-21 10:38 | Internal Med Progress Note ---
<Osman Brown - Last Filed: 05/21/19 15:49> Hospitalist Progress Note - Encounter Date of Encounter: 05/21/19 - Exam Vitals: Temp Pulse Resp BP Pulse Ox 97.7 F 79 15 121/73 97 05/21/19 15:24 05/21/19 15:24 05/21/19 15:24 05/21/19 15:24 05/21/19 15:24 - Assessment and Plan (1) Abscess of left arm Current Visit: No Status: Acute (2) Left arm cellulitis Current Visit: No Status: Acute (3) Noncompliance Current Visit: No Status: Chronic (4) IV drug abuse Current Visit: No Status: Chronic (5) Diabetes Current Visit: Yes Status: Chronic (6) Hypertension Current Visit: Yes Status: Chronic (7) Septic olecranon bursitis of left elbow Current Visit: Yes Status: Acute - Time Spent with Patient Total time spent is greater than 50% in coordination of care (as documented) at patient's floor/unit and/or counseling patient: Internal Medicine: Result - Labs CBC & Chem 7: 05/21/19 03:04 05/21/19 03:04 Labs: Short CBC 05/21/19 Range/Units 03:04 WBC 13.7 H (4.3-11.1) K/mcL Hgb 11.6 L D (12.9-16.9) g/dL Hct 35.1 L (37.5-50.1) % Plt Count 357 (140-400) K/mcL BMP 05/21/19 03:04 Sodium 133 L Potassium 3.8 Chloride 99 Carbon Dioxide 26 BUN 15 Creatinine 0.68 L Glucose 349 H Calcium 7.6 L - ABG Interpretation ABG results: PT/INR, D-dimer PT 11.4 Seconds (9.4-12.1) 05/20/19 01:15 Consult Discharge Plan - Plan Referrals: Yunier Crandall MD [Partnered Physician] - 05/28/19 10:00 am NONE,PCP [Primary Care Provider] - - Attending Attestation I examined this patient and my medical decision-making was reviewed with the Resident Physician on 05/21/19. I agree with the documented findings, disposition and treatment plan as described except to the extent set forth below. Mr Ford is currently admitted for abscess L forearm/elbow. He remains mode rate to high risk. Mr Ford is feeling OK. He is tolerating abx. Cx with group B strep. Will a djust abx to cover appropriately. Exam shows him comfortable at this time. Otherwise agree with above assessment and plan. <Gale,Faraaz - Last Filed: 05/21/19 20:41> Hospitalist Progress Note - Encounter Date of Encounter: 05/21/19 Time of Encounter: 10:38 - Subjective Interval History: Patient was seen and examined at bedside this morning. No acute complaints at this time. Resting comfortably after eating breakfast. Notes occasional pain in his left arm, but otherwise states that he is comfortable. Vitals hemodynamically stable. - Exam Vitals: Temp Pulse Resp BP Pulse Ox 97.7 F 80 16 152/87 97 05/21/19 06:43 05/21/19 06:43 05/21/19 06:43 05/21/19 06:43 05/21/19 06:43 Exam: GEN: 53-year-old male resting comfortably at bedside. Vitals stable. No acute distress. AAOx3 HEENT: Atraumatic, Normocephalic, PERRLA, EOMI NECK: Supple, no lymphadenopathy, no JVD CARDIAC: RRR, s1 and s2 present, no murmurs, rubs, gallops PULM: CTAB, not in respiratory distress, no wheezes, rales, crackles, rhonchi ABD: Soft, non-tender, non-distended, no guarding or rebound tenderness. Bowel sounds present EXT: No peripheral edema. No calf tenderness, cyanosis, clubbing. Bandaged left arm. NEURO: CN 2-12 grossly intact. No focal neurologic deficits. Follows commands PSYCH: Appropriate mood and affect - Assessment and Plan (1) Abscess of left arm Current Visit: Yes Status: Acute Assessment and Plan: This is a 53-year-old male with past medical history significant for IV drug abuse, diabetes who initially presented to the ED with erythema, tenderness, swelling of left upper extremity. - Additionally blood glucose = greater than 500 - Initial imaging = abscess in left upper extremity. - Status post IV fluids and antibiotics at [place] [facility] - Admitted for further evaluation and management - Patient is postoperative day #2 status post left upper extremity incision and drainage of deep abscess, performed on the forearm, left elbow excision of olecranon bursa, left elbow joint aspiration. PLAN: - Postoperative day #2 status post left upper extremity incision and drainage. - Follow up wound cultures => evidence of growth of Group B Strep agalactiae; will cont with current abx; may consider switch to Ancef in the AM or switch to PO abx - Continue with antibiotics. - Pain control as needed - Dressing changes per orthopedics - Continue to trend CBC - Encouraged to elevate left upper extremity; encouraged to do hand and elbow exercises (2) Left arm cellulitis Current Visit: No Status: Acute Assessment and Plan: PLAN as above - Cont with IV abx; may transition to PO abx within the next day or two (3) Septic olecranon bursitis of left elbow Current Visit: Yes Status: Acute Assessment and Plan: PLAN as above (4) Diabetes Current Visit: Yes Status: Chronic Assessment and Plan: Chronic PLAN: - Medium dose insulin sliding scale - Restart home basal insulin 60 units Levemir twice a day - Diabetic diet - Accu-Cheks before meals at bedtime (5) Hypertension Current Visit: Yes Status: Chronic Assessment and Plan: Chronic PLAN: - Continue to monitor blood pressures - Continue with lisinopril and metoprolol tartrate (6) IV drug abuse Current Visit: No Status: Chronic - Time Spent with Patient Total time spent is greater than 50% in coordination of care (as documented) at patient's floor/unit and/or counseling patient: less than 15 minutes Plan of Care Discussed with: patient Internal Medicine: Result - Labs CBC & Chem 7: 05/21/19 03:04 05/21/19 03:04 Labs: Short CBC 05/21/19 Range/Units 03:04 WBC 13.7 H (4.3-11.1) K/mcL Hgb 11.6 L D (12.9-16.9) g/dL Hct 35.1 L (37.5-50.1) % Plt Count 357 (140-400) K/mcL BMP 05/21/19 03:04 Sodium 133 L Potassium 3.8 Chloride 99 Carbon Dioxide 26 BUN 15 Creatinine 0.68 L Glucose 349 H Calcium 7.6 L - ABG Interpretation ABG results: PT/INR, D-dimer PT 11.4 Seconds (9.4-12.1) 05/20/19 01:15 <Osman Brown - Last Filed: 05/21/19 15:49> (5) Diabetes Qualifiers: Diabetes mellitus type: type 2 Diabetes mellitus senior care insulin use: with exterminator helper use Diabetes mellitus complication status: with hyperglycemia Qualified Code(s): E11.65 - Type 2 diabetes mellitus with hyperglycemia; Z79.4 - skilled nursing (current) use of insulin (6) Hypertension Qualifiers: Hypertension type: essential hypertension Qualified Code(s): I10 - Essential (primary) hypertension <Thomas Gale - Last Filed: 05/21/19 20:41> (4) Diabetes Qualifiers: Diabetes mellitus type: type 2 Diabetes mellitus exterminator helper insulin use: with senior care use Diabetes mellitus complication status: with hyperglycemia Qualified Code(s): E11.65 - Type 2 diabetes mellitus with hyperglycemia; Z79.4 - skilled nursing (current) use of insulin (5) Hypertension Qualifiers: Hypertension type: essential hypertension Qualified Code(s): I10 - Essential (primary) hypertension
--- NOTE | 2019-05-21 16:39 | Orthopedics Progress Note ---
Date of Encounter: 05/21/19 Time of Encounter: 16:15 - Assessment and Plan (1) Abscess of left arm Current Visit: No Status: Acute Continued improvement to arm. Decrease in drainage from where packing was removed at proximal end of incision. Continue with local wound care cleansing with soap/water 3xdaily and apply new dry gauze/abd/kerliz dressings. Continue elevation Patient was encouraged to continue hand and elbow exercises WBC has improved from 26.8 to 13.7 today Intraoperative wound cx- strep agalactiae Group B Continue IV vancomycin and Zosyn. recommend at least one more night of IV abx. Patient was wanting to leave AMA as he felt that his call light was on too long. He states he was wanting his pain meds, coffee and his sheets changed. I had a long talk with patient about the risks of leaving before we felt he was medically safe to go home. He was in agreement to stay if could meet the 3 needs above. I relayed message to nurse who was working to get those things for him at that time. (2) Septic olecranon bursitis of left elbow Current Visit: Yes Status: Acute Subjective Principal diagnosis: POD#2 s/p left forearm I&D 05/19/19 Interval history: Patient sitting at edge of bed trying to get dressed into his regular clothes. Per nurse patient was just yelling about leaving AMA. Patient states he has been waiting too long for his pain medication stating he pushed his call light on 45 min ago, however light was not on upon entering room. He states the arm feels good and much better than a couple days ago but still having pain. He feels the swelling is down and his motion is better. He states dressings have been changed a couple times a day and he continues to have drainage but also getting better. States he chronically had numbness in fingers and not worse since surgery. Objective Vital signs: Vital Signs Temp Pulse Resp BP Pulse Ox 05/21/19 15:24 97.7 F 79 15 121/73 97 05/21/19 11:52 97.7 F 78 16 135/84 99 05/21/19 06:43 97.7 F 80 16 152/87 97 05/21/19 04:03 98.3 F 83 14 128/88 97 05/20/19 23:10 97.9 F 74 16 110/67 97 05/20/19 18:21 97.9 F 89 16 150/89 98 Intake and Output 05/21/19 05/21/19 05/21/19 07:59 15:59 23:59 Intake Total 350 / 590 240 / 590 Output Total 1600 / 1925 325 / 1925 Balance -1250 / -1335 -85 / -1335 Intake: IV Fluids 350 / 350 Zosyn 3.375 GM In 0.9 % Sodium 100 / 100 Chloride (Mini-Bag +) 100 ML @ 25 mls/hr IVPB Q8H [facility] Rx#: [id number] Vancocin 1,250 MG In 0.9 % 250 / 250 Sodium Chloride 250 ML @ 166.67 mls/hr IVPB Q12H [facility] Rx#: [id number] Oral 240 / 240 Output: Urine 1600 / 1925 325 / 1925 Other: Meal Lunch Percent of Meal Consumed 100% Weight 64.4 kg Blood Glucose* 276 335 Patient Weight 05/21/19 23:59 Weight 64.4 kg Incision: swollen (left forearm/elbow swelling and minimal erythema, sutures in place. small amount serous drainage from most proximal end of proximal incision. tenderness to palpation around incisions, skin around incisions indurated. Full ROM of elbow and wrist/hand. sensation intact distally.) - Labs CBC & BMP: 05/21/19 03:04 05/21/19 03:04 Labs: Abnormal lab results WBC 13.7 K/mcL (4.3-11.1) H 05/21/19 03:04 RBC 3.93 M/mcL (4.19-5.50) L 05/21/19 03:04 Hgb 11.6 g/dL (12.9-16.9) L D 05/21/19 03:04 Hct 35.1 % (37.5-50.1) L 05/21/19 03:04 Plt Count 401 K/mcL (140-400) H 05/20/19 01:15 23.1 K/mcL (1.6-8.9) H 05/20/19 01:15 Slight increase (Normal) H 05/20/19 01:15 Sodium 133 mEq/L (136-145) L 05/21/19 03:04 Potassium 3.4 mEq/L (3.5-5.1) L 05/20/19 01:15 0.68 mg/dL (0.70-1.30) L 05/21/19 03:04 Glucose 349 mg/dL (70-105) H 05/21/19 03:04 POC Glucose 215 mg/dL (70-99) H 05/20/19 20:03 13.9 % (-5.6) H 05/19/19 10:05 Calcium 7.6 mg/dL (8.6-10.3) L 05/21/19 03:04 Phosphorus 2.4 mg/dL (2.7-4.5) L 05/19/19 10:05 ALT 55 Units/L (7-52) H 05/19/19 10:05 117 Units/L (34-104) H 05/19/19 10:05 6.0 g/dL (6.4-8.9) L 05/20/19 01:15 2.1 g/dL (3.5-5.7) L 05/20/19 01:15 3.9 g/dL (2.4-3.5) H 05/20/19 01:15 0.5 (1.1-2.2) L 05/20/19 01:15 35 mg/dL (40-59) L 05/20/19 01:15 Synovial Tot Nuc Cell 1388 TNC/mcL (0-200) H 05/19/19 15:40 Consult Discharge Plan - Plan Referrals: Yunier Crandall MD [Partnered Physician] - 05/28/19 10:00 am NONE,PCP [Primary Care Provider] -
[2019-05-21] MEDS ORDERED: hydrOXYzine pamoate 25 MG CAPSULE PO ONE (17:21)
[2019-05-21] MEDS: Insulin DETEMIR 100 UNIT/ML X5UNITS SQ SCH (20:40)
[2019-05-21] MEDS: ceFAZolin 1,000 MG in Water for inj. (sterile) 10 ML IVP SCH (23:46)
[2019-05-22] MEDS: 0.9 % Sodium Chloride 1,000 ML IVC SCH (03:18)
[2019-05-22 05:27] LABS: Basophils # 0.1 K/mcL (0.0-0.2); Basophils % 0.9 %; Eosinophils # 0.3 K/mcL (0.0-0.6); Eosinophils % 2.3 %; Hematocrit 35.1 % (37.5-50.1); Hemoglobin 11.7 g/dL (12.9-16.9); Lymphocytes # 3.1 K/mcL (0.6-4.6); Lymphocytes % 29.1 %; Mean Corpuscular HGB Conc 33.3 g/dL (31.6-35.5); Mean Corpuscular Hemoglobin 30.1 pg (28.0-33.3); Mean Corpuscular Volume 90.2 fL (83.0-100.0); Mean Platelet Volume 10.3 fL (9.4-12.4); Monocytes # 0.9 K/mcL (0.0-1.3); Monocytes % 8.3 %; Neutrophils # 6.2 K/mcL (1.6-8.9); Platelet Count 366 K/mcL (140-400); Red Blood Count 3.89 M/mcL (4.19-5.50); Red Cell Distribution Width 12.7 % (11.5-14.5); Segmented Neutrophils % 57.4 %; White Blood Count 10.8 K/mcL (4.3-11.1)
[2019-05-22 05:52] LABS: BUN/Creatinine Ratio 21 (6-26); Blood Urea Nitrogen 12 mg/dL (6-20); Calcium 7.9 mg/dL (8.6-10.3); Carbon Dioxide 25 mEq/L (23-29); Chloride 104 mEq/L (98-107); Glucose 190 mg/dL (70-105); Magnesium 1.7 mg/dL (1.6-2.6); Osmolality,Calculated 291 (280-300); Phosphorous 2.7 mg/dL (2.7-4.5); Potassium 3.8 mEq/L (3.5-5.1); Sodium 138 mEq/L (136-145); eGFR For African Americans > 60 (> 60); eGFR For Non-African Americans > 60 (> 60)
[2019-05-22] MEDS: Lisinopril 20 MG TABLET PO SCH (08:47)
[2019-05-22] MEDS: ceFAZolin 1,000 MG in Water for inj. (sterile) 10 ML IVP SCH (08:47)
[2019-05-22] MEDS: *HR* HYDROcodone/Acet 5/325 mg TABLET PO PRN ×2 (08:48→16:39)
[2019-05-22] MEDS: Insulin DETEMIR 100 UNIT/ML X5UNITS SQ SCH (08:51)
--- NOTE | 2019-05-22 08:51 | Internal Med Progress Note ---
Hospitalist Progress Note - Encounter Date of Encounter: 05/22/19 Time of Encounter: 08:50 - Subjective Interval History: Patient seen and examined at bedside this morning. Keep is resting comfortably. Has no acute complaints at this time. With wound culture growing group B strep, patient switched to IV Ancef TID. Will transition to PO prior to disch arge. With addition of basal insulin, blood sugars improved today. - Exam Vitals: Temp Pulse Resp BP Pulse Ox 98.3 F 69 16 170/95 99 05/22/19 07:56 05/22/19 07:56 05/22/19 07:56 05/22/19 07:56 05/22/19 07:56 Exam: GEN: Pleasant 53-year-old male who is resting comfortably at bedside. Vitals stable. No acute distress. AAOx3 HEENT: Atraumatic, Normocephalic, PERRLA, EOMI. hearing deficit on the left side. NECK: Supple, no lymphadenopathy, no JVD CARDIAC: RRR, s1 and s2 present, no murmurs, rubs, gallops PULM: CTAB, not in respiratory distress, no wheezes, rales, crackles, rhonchi ABD: Mild epigastric tenderness to palpation. Otherwise, soft, non-distended, no guarding or rebound tenderness. Bowel sounds present EXT: No peripheral edema. No calf tenderness, cyanosis, clubbing NEURO: CN 2-12 grossly intact. No focal neurologic deficits. Follows commands PSYCH: Appropriate mood and affect - Assessment and Plan (1) Abscess of left arm Current Visit: Yes Status: Acute Assessment and Plan: This is a 53-year-old male with past medical history significant for IV drug abuse, diabetes who initially presented to the ED with erythema, tenderness, swelling of left upper extremity. - Additionally blood glucose = greater than 500 - Initial imaging = abscess in left upper extremity. - Status post IV fluids and antibiotics at [place] [facility] - Admitted for further evaluation and management - Patient is postoperative day #3 status post left upper extremity incision and drainage of deep abscess, performed on the forearm, left elbow excision of olecranon bursa, left elbow joint aspiration. PLAN: - Postoperative day #3 status post left upper extremity incision and drainage. - Follow up wound cultures => evidence of growth of Group B Strep agalactiae; switch to Ancef in the AM; plan to switch to Keflex to complete 10 days worth of antibiotics. - Continue with antibiotics. - Pain control as needed - Dressing changes per orthopedics - Continue to trend CBC - Encouraged to elevate left upper extremity; encouraged to do hand and elbow exercises (2) Left arm cellulitis Current Visit: No Status: Acute Assessment and Plan: PLAN as above - Cont with IV abx; we will transition to PO abx (3) Septic olecranon bursitis of left elbow Current Visit: Yes Status: Acute Assessment and Plan: PLAN as above (4) Diabetes Current Visit: Yes Status: Chronic Assessment and Plan: Chronic - Blood sugars improving PLAN: - Medium dose insulin sliding scale - Restart home basal insulin 60 units Levemir twice a day - Diabetic diet - Accu-Cheks before meals at bedtime (5) Hypertension Current Visit: Yes Status: Chronic Assessment and Plan: Chronic PLAN: - Continue to monitor blood pressures - Continue with lisinopril and metoprolol tartrate (6) IV drug abuse Current Visit: No Status: Chronic Assessment and Plan: History of IV drug abuse on presentation. (7) DVT prophylaxis Current Visit: Yes Status: Acute Assessment and Plan: PLAN: - SCDs DVT Prophylaxis: SCDs - Time Spent with Patient Total time spent is greater than 50% in coordination of care (as documented) at patient's floor/unit and/or counseling patient: less than 15 minutes Plan of Care Discussed with: patient Internal Medicine: Result - Labs CBC & Chem 7: 05/22/19 04:27 05/22/19 04:27 Labs: Short CBC 05/22/19 Range/Units 04:27 WBC 10.8 (4.3-11.1) K/mcL Hgb 11.7 L (12.9-16.9) g/dL Hct 35.1 L (37.5-50.1) % Plt Count 366 (140-400) K/mcL Neutrophils # 6.2 (1.6-8.9) K/mcL BMP 05/22/19 04:27 Sodium 138 Potassium 3.8 Chloride 104 Carbon Dioxide 25 BUN 12 Creatinine 0.56 L Glucose 190 H Calcium 7.9 L - ABG Interpretation ABG results: PT/INR, D-dimer PT 11.4 Seconds (9.4-12.1) 05/20/19 01:15 Consult Discharge Plan - Plan Referrals: Eliseo Dueñas DO [Other] Yunier Crandall MD [Partnered Physician] - 05/28/19 10:00 am (4) Diabetes Qualifiers: Diabetes mellitus type: type 2 Diabetes mellitus custodial insulin use: with manager intermediate use Diabetes mellitus complication status: with hyperglycemia Qualified Code(s): E11.65 - Type 2 diabetes mellitus with hyperglycemia; Z79.4 - intermediate manager (current) use of insulin (5) Hypertension Qualifiers: Hypertension type: essential hypertension Qualified Code(s): I10 - Essential (primary) hypertension
[2019-05-22] MEDS: Insulin LISPRO 300 UNITS/3 ML VIAL SQ SCH ×2 (08:54→13:57)
--- NOTE | 2019-05-22 14:42 | Orthopedics Progress Note ---
Date of Encounter: 05/22/19 Time of Encounter: 14:20 - Assessment and Plan (1) Abscess of left arm Current Visit: Yes Status: Acute Continued improvement to arm. minimal drainage from where packing was removed at proximal end of incision. Continue with local wound care cleansing with soap/water 3xdaily and apply new dry gauze/abd/kerliz dressings. Patient to continue this wound care once he is discharged home. Continue elevation Patient was encouraged to continue hand and elbow exercises as tolerated. WBC has improved 10.8 now Intraoperative wound cx- strep agalactiae Group B Continue IV abx per primary team. He has been switched to ancef now. Recommend transition to PO abx upon discharge. Will follow up in [facility] office on 05/28/19 at 10:00am for wound check. (2) Septic olecranon bursitis of left elbow Current Visit: Yes Status: Acute Subjective Principal diagnosis: POD#3 s/p left forearm I&D 05/19/19 Interval history: Patient doing well today. States pain and swelling are much improved. He has no new concerns or questions at this time. no events overnight. Objective Vital signs: Vital Signs Temp Pulse Resp BP Pulse Ox 05/22/19 11:32 98.1 F 66 15 146/93 100 05/22/19 07:56 98.3 F 69 16 170/95 99 05/22/19 03:33 97.5 F L 64 15 150/91 98 05/21/19 23:16 97.5 F L 78 16 137/77 97 05/21/19 19:03 98.0 F 67 15 133/78 98 05/21/19 19:00 98 05/21/19 15:24 97.7 F 79 15 121/73 97 Intake and Output 05/21/19 05/22/19 05/22/19 23:59 07:59 15:59 Intake Total 260 / 1950 1000 / 1000 Output Total 920 / 2845 1050 / 2250 1200 / 2250 Balance -660 / -895 -50 / -1250 -1200 / -1250 Intake: IV Fluids 260 / 1710 1000 / 1000 0.9 % Sodium Chloride 1,000 ML 1000 / 1000 @ 100 mls/hr IVC .Q10H [facility] Rx#: [id number] Ancef 1,000 MG In Water for inj . (sterile) 10 ML @ 200 mls/hr IVP Q8HR [facility] Rx#:[id number] Vancocin 1,250 MG In 0.9 % 250 / 500 Sodium Chloride 250 ML @ 166.67 mls/hr IVPB Q12H [facility] Rx#: [id number] Output: Urine 920 / 2845 1050 / 2250 1200 / 2250 Other: # Voids 1 2 Weight 66.7 kg Blood Glucose* 223 106 281 Patient Weight 05/22/19 23:59 Weight 66.7 kg Incision: swollen (Improving swelling to left forearm and elbow with minimal erythema. sutures in place to 2 incisions. small amount serous fluid from anterior incision at proximal end. mild tendereness to palpation. compartments soft. full elbow and hand/wrist motion. sensation intact distally.) - Labs CBC & BMP: 05/22/19 04:27 05/22/19 04:27 Labs: Abnormal lab results WBC 13.7 K/mcL (4.3-11.1) H 05/21/19 03:04 RBC 3.89 M/mcL (4.19-5.50) L 05/22/19 04:27 Hgb 11.7 g/dL (12.9-16.9) L 05/22/19 04:27 Hct 35.1 % (37.5-50.1) L 05/22/19 04:27 Plt Count 401 K/mcL (140-400) H 05/20/19 01:15 23.1 K/mcL (1.6-8.9) H 05/20/19 01:15 Slight increase (Normal) H 05/20/19 01:15 Sodium 133 mEq/L (136-145) L 05/21/19 03:04 Potassium 3.4 mEq/L (3.5-5.1) L 05/20/19 01:15 0.56 mg/dL (0.70-1.30) L 05/22/19 04:27 Glucose 190 mg/dL (70-105) H 05/22/19 04:27 POC Glucose 223 mg/dL (70-99) H 05/21/19 20:20 13.9 % (-5.6) H 05/19/19 10:05 Calcium 7.9 mg/dL (8.6-10.3) L 05/22/19 04:27 Phosphorus 2.4 mg/dL (2.7-4.5) L 05/19/19 10:05 ALT 55 Units/L (7-52) H 05/19/19 10:05 117 Units/L (34-104) H 05/19/19 10:05 6.0 g/dL (6.4-8.9) L 05/20/19 01:15 2.1 g/dL (3.5-5.7) L 05/20/19 01:15 3.9 g/dL (2.4-3.5) H 05/20/19 01:15 0.5 (1.1-2.2) L 05/20/19 01:15 35 mg/dL (40-59) L 05/20/19 01:15 Synovial Tot Nuc Cell 1388 TNC/mcL (0-200) H 05/19/19 15:40 Consult Discharge Plan - Plan Referrals: Eliseo Dueñas, [Other] Yunier Crandall MD [Partnered Physician] - 05/28/19 10:00 am
--- NOTE | 2019-05-22 15:14 | Discharge Summary ---
- NOTES TO OUTPATIENT PROVIDER Notes to Outpatient Provider: - Patient will continue on Keflex BID to complete 10 days total of antibiotics. Will treat through May 28, 2019. - Recommend Tylenol for pain control. - Patient will additionally have follow-up with orthopedics on May 28. - Of note, patient did have significantly elevated blood sugars on presentation. He was on medium dose insulin sliding scale and Levemir 60 units twice a day. Recommend close follow-up regarding blood sugars. Orders not resulted at time of discharge: Pending orders 05/19/19 15:40 Culture,Anaerobic [RM] Routine 05/19/19 15:48 Culture,Anaerobic [RM] Routine 05/19/19 15:56 Culture,Anaerobic [RM] Routine Date of Encounter: 05/22/19 Time of Encounter: 15:06 - Discharge Diagnosis (1) Abscess of left arm Priority: Primary Status: Acute (2) Left arm cellulitis Priority: Secondary Status: Acute (3) Septic olecranon bursitis of left elbow Priority: Secondary Status: Acute (4) Diabetes Priority: Secondary Status: Chronic Qualifiers: Diabetes mellitus type: type 2 Diabetes mellitus custodial insulin use: with termite control representative use Diabetes mellitus complication status: with hyperglycemia Qualified Code(s): E11.65 - Type 2 diabetes mellitus with hyperglycemia; Z79.4 - [facility] (current) use of insulin (5) Hypertension Priority: Secondary Status: Chronic Qualifiers: Hypertension type: essential hypertension Qualified Code(s): I10 - Essential (primary) hypertension (6) IV drug abuse Priority: Secondary Status: Chronic (7) DVT prophylaxis Priority: Secondary Status: Acute Hospital course: Mr. Ford is a 53 year old male who past medical history significant for IV drug abuse, diabetes who initially presented to the ED with erythema, tenderness, swelling of the left upper extremity. Additionally patient had blood glucose on presentation = greater than 500. Initial imaging did show an abscess in the left upper extremity. Patient was given IV fluids and antibiotics at [facility]. He was then admitted for further management and transferred to [facility]. Patient was seen by orthopedics, and decision was made to take patient for incision and drainage. Postoperatively, patient was doing well. Leukocytosis did improve. Patient was initially treated with vancomycin and Zosyn, and then after wound cultures resulted, patient was changed to IV Ancef, and will be discharged on by mouth Keflex. Additionally, patient's elevated blood glucose was treated with medium dose insulin sliding scale, and then home dose of Levemir 60 units twice a day. Blood sugars were improved at time of discharge. Patient will need to follow- up with orthopedics at appointment on May 28, and will need follow-up with primary care physician within one week of discharge. We will discharge on 500 mg Keflex twice a day to be completed on May 28. Otherwise patient was hemodynamically stable in no acute distress. Stable for discharge. Discharge discussed with: patient - Time Spent with Patient Total time spent providing and/or coordinating discharge services: Time spent: Less than 30 minutes, D/C greater than 8 hours after Admission - Discharge Medications Prescriptions: New cephALEXin [Keflex] 500 mg PO BID 7 Days #14 capsule Continued Baclofen [Lioresal] 10 mg PO DAILY Mirtazapine [Remeron] 15 mg PO TID Insulin Glargine [Lantus] 60 unit SQ BID traZODone [TraZODone] 50 mg PO HS PRN #30 tablet PRN Reason: Insomnia Insulin ASPART [NovoLOG] 10 unit SQ TIDAC Lisinopril [Zestril] 10 mg PO DAILY metFORMIN [Glucophage] 500 mg PO BID Montelukast [Singulair] 10 mg PO QPM Albuterol Sulfate [Proair Hfa] 1 puff IH Q6H PRN PRN Reason: Shortness Of Breath Metoprolol Tartrate [Lopressor] 50 mg PO BID #60 tablet Discontinued Bupropion HCl [Wellbutrin Xl] 300 mg PO DAILY ARIPiprazole [Abilify] 10 mg PO DAILY #30 tablet Ibuprofen 800 mg PO TID PRN PRN Reason: Pain cloNIDine HCl [CloNIDine HCl] 0.1 mg PO QID PRN PRN Reason: Anxiety Home Medications: Baclofen [Lioresal] 10 mg PO DAILY 04/12/17 [History] Insulin Glargine [Lantus] 60 unit SQ BID 04/12/17 [History] Mirtazapine [Remeron] 15 mg PO TID 04/12/17 [History] traZODone [TraZODone] 50 mg PO HS PRN #30 tablet 04/15/17 [Rx] Metoprolol Tartrate [Lopressor] 50 mg PO BID #60 tablet 12/16/17 [Rx] Albuterol Sulfate [Proair Hfa] 1 puff IH Q6H PRN 05/21/19 [History] Insulin ASPART [NovoLOG] 10 unit SQ TIDAC 05/21/19 [History] Lisinopril [Zestril] 10 mg PO DAILY 05/21/19 [History] Montelukast [Singulair] 10 mg PO QPM 05/21/19 [History] metFORMIN [Glucophage] 500 mg PO BID 05/21/19 [History] cephALEXin [Keflex] 500 mg PO BID 7 Days #14 capsule 05/22/19 [Rx] Allergies/Adverse Reactions: Allergy/AdvReac Type Severity Reaction Status Date / Time Cyclobenzaprine AdvReac See Verified 12/22/16 14:27 [From Flexeril] Comments Date of admission: 05/19/19 14:10 Primary care physician: PCP NONE Discharging clinician: Thomas Gale Anticipated date of discharge: 05/22/19 - Constitutional Vitals: Temp Pulse Resp BP Pulse Ox 98.1 F 66 15 146/93 100 05/22/19 11:32 05/22/19 11:32 05/22/19 11:32 05/22/19 11:32 05/22/19 11:32 General appearance: Present: cooperative, A&O X 3, pleasant, no acute distress, answers questions appropriately Exam: 53-year-old female sitting in bed in no acute distress. Vitals hemodynamically stable. - Head Head exam: Present: atraumatic, normal inspection, normocephalic - Eye Eye exam: Present: EOMI - ENT ENT exam: Present: mucous membranes moist - Neck Neck exam general surgery: Present: full ROM, supple - Respiratory Respiratory exam: Present: CTAB. Absent: respiratory distress - Cardiovascular Cardiovascular exam: Present: RRR, +S1, +S2 - GI/Abdominal GI/Abdominal exam: Present: normal bowel sounds, soft, no peritoneal signs - Extremities Exam Extremities exam: Present: warm, radial pulses palpable and symmetrical Additional comments: Left arm bandaged - Neurological Exam Neurological exam: Present: alert, oriented X3 - Psychiatric Psychiatric exam: Present: normal affect, normal mood - Skin Skin exam: Present: warm. Absent: rash - Patient Status Disposition: Home, Self-Care Condition: Fair Functional capacity at discharge: independent ambulation Overall status at discharge: patient is progressing back to baseline - Discharge Instructions Follow Up With: Eliseo Dueñas, DO [Other] (Unable to schedule appointment. Please call primary care office to schedule hospital follow up appointment for 7-10 days from date of discharge. ) Yunier Crandall MD [Partnered Physician] - 05/28/19 10:00 am - Diet and Activity Activity: increase activity as tolerated Diet: diabetic diet, low fat, low cholesterol, low salt diet
[2019-05-22 16:05] VITALS: BP 147/82
[2019-05-22] MEDS ORDERED: Aminoglycoside Consult 1 EACH MC ONE (18:11)
[2019-05-22] MEDS ORDERED: cephALEXin 500 MG CAPSULE PO SCH (21:00)
== END 2019-05-22 18:12 | disposition home or self-care (01) | DRG 315 ==
LOC: 3BNU → SUATTDRO 14:10
PROVIDERS: ADMIT Internal Medicine; ATTEND Internal Medicine

== ENCOUNTER 2019-06-01 16:47 | Inpatient (IN) ==
[2019-06-01] MEDS ORDERED: D5% in Water 1,000 ML IVC PRN (18:17)
[2019-06-01] MEDS ORDERED: Dextrose Gel 15 GM/37.5 ML TUBE PO PRN ×2 (18:17)
[2019-06-01] MEDS ORDERED: *HR* Dextrose 50 % in Water (Syg) 50 ML SYRINGE IVP PRN (18:17)
[2019-06-01] MEDS ORDERED: Acetaminophen 325 MG TABLET PO PRN (20:48)
[2019-06-01] MEDS ORDERED: Naloxone 0.4 MG/ML INJ IVP PRN (20:48)
[2019-06-01] MEDS ORDERED: *HR* HYDROcodone/Acet 5/325 mg TABLET PO PRN (20:48)
[2019-06-01] MEDS ORDERED: Ondansetron 4 MG/2 ML VIAL IVP PRN (20:48)
[2019-06-01] MEDS ORDERED: Insulin DETEMIR 100 UNIT/ML X5UNITS SQ SCH (21:00)
[2019-06-01] MEDS: 0.9 % Sodium Chloride 1,000 ML IVC SCH (22:30)
[2019-06-01] MEDS: Insulin LISPRO 300 UNITS/3 ML VIAL SQ SCH (22:30)
[2019-06-01] MEDS: *HR* OxyCODONE Immed Rel 5 MG TABLET PO PRN (22:31)
--- NOTE | 2019-06-01 22:39 | Internal Med History&Physical ---
Date of Encounter: 06/01/19 Time of Encounter: 22:39 Internal Medicine - H&P: HPI Chief complaint: wound infection History of present illness: Mr. Ford is a 53 year old male with PMH OF asthma, COPD, diabetes, hyperlipidemia, hypertension who s/p Left upper extremity incision and drainage of deep abscess from upper arm down to forearm, and into the muscle, Left elbow excision of olecranon bursa and Left elbow joint aspiration on 05/19 who presented to the ER with swelling , erythema and tenderness and purulent discharge at the incision side. Dr. Crandall from orthopedics surgery was consulted by the ER staff [facility]. He agreed to see the patient in [facility], the patient will be admitted to the hospitalist service, blood culture were obtained, patient was started in empiric antibiotic, further evaluation and management of the left upper extremity abscesses and cellulitis will be as per orthopedic service. Past Med Surg Social Fam HX - Past Medical History Medical history: asthma, COPD, diabetes, hepatitis, hyperlipidemia, hypertension Additional medical history: sleep apnea Psychiatric history: anxiety, depression, previous psychiatric hospitalization - Past Surgical History Surgical History: appendectomy, herniorrhaphy Additional surgical history: facial surgery for cellulitis, hernia repair, mass removed from stomach - Social History Smoking Status: Current every day smoker Smokeless Tobacco Status: No Alcohol use: none Drug use: methamphetamine, IV Drug Use - Family History Mother Living Status: Hx Family Cardiac Disorders: No Hx Family Respiratory Disorders: No Hx Family Cancer: No Hx Family GI Disorders: No Hx Family Endocrine Disorder: Yes (Diabetes) Hx Family Neuromuscular Disorders: No Hx Family Neurologic Disorders: No Hx Family HEENT Disorders: No Hx Family Autoimmune Disorders: No Father Name: Kash Peter Age: 92 Family Member Ethnicity: Non- Living Status: Age at : 92 Cause of : stroke Hx Family Cardiac Disorders: Yes Hx Family Respiratory Disorders: No Hx Family Cancer: No Hx Family GI Disorders: No Hx Family Endocrine Disorder: Yes (Diabetes) Hx Family Neuromuscular Disorders: No Hx Family Neurologic Disorders: No Hx Family HEENT Disorders: No Hx Family Autoimmune Disorders: No Internal Medicine - H&P: Meds Insulin Glargine [Lantus] 20 unit SQ BID 04/12/17 [History] Mirtazapine [Remeron] 15 mg PO TID 04/12/17 [History] Metoprolol Tartrate [Lopressor] 50 mg PO BID #60 tablet 12/16/17 [Rx] Albuterol Sulfate [Proair Hfa] 1 puff IH Q6H PRN 05/21/19 [History] Insulin ASPART [NovoLOG] 100 unit SQ TIDAC 05/21/19 [History] Montelukast [Singulair] 10 mg PO QPM 05/21/19 [History] metFORMIN [Glucophage] 500 mg PO BID 05/21/19 [History] Ibuprofen [Ibu] 800 mg PO TID PRN 06/01/19 [History] Lovastatin [Mevacor] 20 mg PO HS 06/01/19 [History] cloNIDine HCl [CloNIDine HCl] 0.1 mg PO QID PRN 06/01/19 [History] HYDROcodone/Acet 5/325 mg [[place] 5-325 mg] 1 tab PO Q8H PRN 2 Days #6 tablet 06/06/19 [Rx] Sulfamethoxazole/Trimeth DS [Bactrim DS] 2 each PO BID 14 Days #56 tablet 09/15 [Rx] Allergy/AdvReac Type Severity Reaction Status Date / Time Cyclobenzaprine AdvReac See Verified 12/22/16 14:27 [From Flexeril] Comments All Systems PM: A 10-system review of systems was performed and is negative for pertinent findings except as documented above in the HPI. - Constitutional Vitals: Temp Pulse Resp BP Pulse Ox 97.5 F L 87 17 179/92 99 06/01/19 19:14 06/01/19 19:14 06/01/19 19:14 06/01/19 22:27 06/01/19 19:14 General appearance: Present: A&O X 3 Exam: ` - Head Head exam: Present: atraumatic, normocephalic - Neck Neck exam general surgery: Present: supple, trachea midline. Absent: lymphadenopathy - Respiratory Respiratory exam: Present: CTAB. Absent: accessory muscle use, rales, rhonchi, wheezes Internal Med - H&P Results - Labs CBC & Chem 7: 06/06/19 04:15 06/06/19 04:15 - Assessment and Plan (1) Abscess of left arm Status: Acute Assessment and plan: Dr. Crandall from orthopedics surgery was consulted by the ER staff [facility]. He agreed to see the patient in consult, blood culture were obtained, patient was started in empiric antibiotic, further evaluation and management of the left upper extremity abscesses and cellulitis will be as per orthopedic service. (2) Cellulitis Status: Acute Assessment and plan: left upper extremity with erythema that extends down to the wrist, blood culture were obtained, patient was started in empiric antibiotic, further evaluation and management of the left upper extremity abscesses and cellulitis will be as per orthopedic service. Qualifiers: Site of cellulitis: extremity Site of cellulitis of extremity: upper extremity Laterality: left Qualified Code(s): L03.114 - Cellulitis of left upper limb (3) Diabetes Status: Chronic Qualifiers: Diabetes mellitus type: type 2 Diabetes mellitus terminal press operator insulin use: with mcc use Diabetes mellitus complication status: with hyperglycemia Qualified Code(s): E11.65 - Type 2 diabetes mellitus with hyperglycemia; Z79.4 - penitentiary (current) use of insulin (4) Hypertension Status: Chronic Qualifiers: Hypertension type: essential hypertension Qualified Code(s): I10 - Esse ntial (primary) hypertension - Time Spent With Patient Total time spent is greater than 50% in coordination of care (as documented) at patient's floor/unit and/or counseling patient:
[2019-06-01] MEDS ORDERED: cloNIDine HCl 0.1 MG TABLET PO PRN (23:48)
[2019-06-02] MEDS: Piperacillin/Tazobactam 3.375 GM in 0.9 % Sodium Chloride Mini Bag 100 ML IVPB SCH ×4 (01:13→22:58)
[2019-06-02 04:02] LABS: Basophils # 0.1 K/mcL (0.0-0.2); Basophils % 0.8 %; Eosinophils # 0.3 K/mcL (0.0-0.6); Eosinophils % 2.1 %; Hematocrit 37.1 % (37.5-50.1); Hemoglobin 12.3 g/dL (12.9-16.9); Immature Granulocytes % 0.4 % (0-4); Lymphocytes # 2.1 K/mcL (0.6-4.6); Lymphocytes % 15.2 %; Mean Corpuscular HGB Conc 33.2 g/dL (31.6-35.5); Mean Corpuscular Volume 90.5 fL (83.0-100.0); Mean Platelet Volume 10.9 fL (9.4-12.4); Monocytes # 0.6 K/mcL (0.0-1.3); Monocytes % 4.6 %; Neutrophils # 10.4 K/mcL (1.6-8.9); Platelet Count 347 K/mcL (140-400); Red Cell Distribution Width 13.1 % (11.5-14.5); Segmented Neutrophils % 76.9 %; White Blood Count 13.6 K/mcL (4.3-11.1)
[2019-06-02 04:08] LABS: INR 0.9; Prothrombin Time 10.5 Seconds (9.4-12.1)
[2019-06-02 04:11] LABS: Activated Partial Thrombo Time 27.4 Seconds (26.0-36.0)
[2019-06-02 04:19] LABS: Alanine Aminotransferase 42 Units/L (7-52); Albumin 2.2 g/dL (3.5-5.7); Albumin/Globulin Ratio 0.6 (1.1-2.2); Alkaline Phosphatase 87 Units/L (34-104); Aspartate Amino Transferase 37 Units/L (13-39); BUN/Creatinine Ratio 15 (6-26); Bilirubin,Total 0.6 mg/dL (0.3-1.0); Blood Urea Nitrogen 10 mg/dL (6-20); Calcium 7.8 mg/dL (8.6-10.3); Carbon Dioxide 28 mEq/L (23-29); Chloride 100 mEq/L (98-107); Cholesterol 146 mg/dL (< 200); Globulin 3.7 g/dL (2.4-3.5); Glucose 96 mg/dL (70-105); HDL Cholesterol 49 mg/dL (40-59); LDL Cholesterol,Calculated 85 mg/dL (0-99); Magnesium 1.5 mg/dL (1.6-2.6); Osmolality,Calculated 279 (280-300); Phosphorous 1.9 mg/dL (2.7-4.5); Potassium 2.7 mEq/L (3.5-5.1); Sodium 135 mEq/L (136-145); Total Protein 5.9 g/dL (6.4-8.9); Triglycerides 62 mg/dL (< 150); eGFR For African Americans > 60 (> 60); eGFR For Non-African Americans > 60 (> 60)
[2019-06-02] MEDS: *HR* OxyCODONE Immed Rel 5 MG TABLET PO PRN ×3 (04:31→19:01)
[2019-06-02] MEDS ORDERED: Potassium Chloride Elixir 20 MEQ/15 ML UDC PO ONE ×2 (04:50→05:53)
--- NOTE | 2019-06-02 07:52 | Internal Med Progress Note ---
<YosvanyjonoJermaine Januaryemilia - Last Filed: 06/02/19 14:42> Hospitalist Progress Note - Encounter Date of Encounter: 06/02/19 - Exam Vitals: Temp Pulse Resp BP Pulse Ox 99.1 F 61 20 158/92 97 06/02/19 11:31 06/02/19 11:31 06/02/19 11:31 06/02/19 11:31 06/02/19 11:31 - Assessment and Plan (1) Abscess of left arm Current Visit: No Status: Acute (2) Diabetes Current Visit: No Status: Chronic (3) Hypertension Current Visit: No Status: Chronic (4) Cellulitis Current Visit: No Status: Acute - Time Spent with Patient Total time spent is greater than 50% in coordination of care (as documented) at patient's floor/unit and/or counseling patient: Internal Medicine: Result - Labs CBC & Chem 7: 06/02/19 02:37 06/02/19 02:37 Labs: Short CBC 06/02/19 Range/Units 02:37 WBC 13.6 H (4.3-11.1) K/mcL Hgb 12.3 L (12.9-16.9) g/dL Hct 37.1 L (37.5-50.1) % Plt Count 347 (140-400) K/mcL Neutrophils # 10.4 H (1.6-8.9) K/mcL BMP 06/02/19 02:37 Sodium 135 L Potassium 2.7 L Chloride 100 Carbon Dioxide 28 BUN 10 Creatinine 0.67 L Glucose 96 Calcium 7.8 L Liver Function 06/02/19 Range/Units 02:37 Total Bilirubin 0.6 (0.3-1.0) mg/dL AST 37 (13-39) Units/L ALT 42 (7-52) Units/L Alkaline Phosphatase 87 (34-104) Units/L Albumin 2.2 L (3.5-5.7) g/dL - ABG Interpretation ABG results: PT/INR, D-dimer PT 10.5 Seconds (9.4-12.1) 06/02/19 02:37 Consult Discharge Plan - Plan Referrals: NONE,PCP [Primary Care Provider] - - Attending Attestation I examined this patient and my medical decision-making was reviewed with the Resident Physician. I agree with the documented findings, disposition and treatment plan as described except to the extent set forth below. <Delon Hartley N - Last Filed: 06/02/19 14:51> Hospitalist Progress Note - Encounter Date of Encounter: 06/02/19 Time of Encounter: 07:52 - Subjective Interval History: Patient resting comfortably in bed upon entering. States he is feeling much better today and swelling in his left upper extremity has gone down significantly. Patient has been eating snacks today because his blood sugars had dropped this morning. Patient states he has a good appetite and would like to eat breakfast. Patient denies chest pain, shortness of breath, abdominal pain, nausea, vomiting, fever, or chills - Exam Vitals: Temp Pulse Resp BP Pulse Ox 98.2 F 90 17 146/93 98 06/02/19 07:50 06/02/19 07:50 06/02/19 07:50 06/02/19 07:50 06/02/19 07:50 Exam: General appearance: Present: Awake alert, answers questions appropriately Head exam: Present: atraumatic, normocephalic Eye exam: Present: EOMI. no scleral icterus. ENT exam: Present: mucous membranes moist, normal oropharynx Neck exam general surgery: Present: supple, trachea midline Respiratory exam: Present: CTAB. No wheezes, rales, or rhonchi Cardiovascular exam: Present: +S1, +S2. No murmurs, rubs, or gallops. GI/Abdominal exam: Present: normal bowel sounds, chronically distended abdomen. No guarding or rebound tenderness. Extremities exam: Left upper extremity with wrapping around the elbow. Left hand and forearm appear swollen as compared to the right with some warmth to touch. Bilateral pulses intact in upper extremities. no evidence of lower extremity edema. Neurological exam: alert, oriented X3, no focal deficits Psychiatric exam: Present: normal affect, normal mood - Assessment and Plan (1) Abscess Current Visit: No Status: Acute Assessment and Plan: Awaiting Ortho consult, further evaluation and management of the left upper extremity abscesses and cellulitis will be as per orthopedic service. Cultures grew Strep B on 05/19, awaiting blood culture results. -Started broad spectrum abx -Vancomycin and Zosyn day 1 (2) Cellulitis Current Visit: No Status: Acute Assessment and Plan: LUE with erythema and edema. Patient states it has improved since abx treatment started yesterday. -Continue empiric antibiotics and await further instructions from ortho service. (3) Diabetes Current Visit: No Status: Chronic Assessment and Plan: Patient's blood sugar on admission was 467. A1c on 05/19 was 13.9%. Since that time blood sugars have normalized. -Levemir adjusted to 15 units subcutaneous at bedtime with medium dose sliding scale insulin -We will continue to monitor blood glucose and adjust as needed. (4) Hypertension Current Visit: No Status: Chronic Assessment and Plan: Patient placed on home medication will Continue to monitor DVT Prophylaxis: SCDs in place - Time Spent with Patient Total time spent is greater than 50% in coordination of care (as documented) at patient's floor/unit and/or counseling patient: Internal Medicine: Result - Labs CBC & Chem 7: 06/02/19 02:37 06/02/19 02:37 Labs: Short CBC 06/02/19 Range/Units 02:37 WBC 13.6 H (4.3-11.1) K/mcL Hgb 12.3 L (12.9-16.9) g/dL Hct 37.1 L (37.5-50.1) % Plt Count 347 (140-400) K/mcL Neutrophils # 10.4 H (1.6-8.9) K/mcL BMP 06/02/19 02:37 Sodium 135 L Potassium 2.7 L Chloride 100 Carbon Dioxide 28 BUN 10 Creatinine 0.67 L Glucose 96 Calcium 7.8 L Liver Function 06/02/19 Range/Units 02:37 Total Bilirubin 0.6 (0.3-1.0) mg/dL AST 37 (13-39) Units/L ALT 42 (7-52) Units/L Alkaline Phosphatase 87 (34-104) Units/L Albumin 2.2 L (3.5-5.7) g/dL - ABG Interpretation ABG results: PT/INR, D-dimer PT 10.5 Seconds (9.4-12.1) 06/02/19 02:37 <YosvanyjonoJermaine Januaryemilia - Last Filed: 06/02/19 14:42> (2) Diabetes Qualifiers: Diabetes mellitus type: type 2 Diabetes mellitus jail insulin use: with superintendent terminal use Diabetes mellitus complication status: with hyperglycemia Qualified Code(s): E11.65 - Type 2 diabetes mellitus with hyperglycemia; Z79.4 - nursing home (current) use of insulin (3) Hypertension Qualifiers: Hypertension type: essential hypertension Qualified Code(s): I10 - Essential (primary) hypertension (4) Cellulitis Qualifiers: Site of cellulitis: extremity Site of cellulitis of extremity: upper extremity Laterality: left Qualified Code(s): L03.114 - Cellulitis of left u pper limb <Delon Hartley - Last Filed: 06/02/19 14:51> (2) Cellulitis Qualifiers: Site of cellulitis: extremity Site of cellulitis of extremity: upper extremity Laterality: left Qualified Code(s): L03.114 - Cellulitis of left upper limb (3) Diabetes Qualifiers: Diabetes mellitus type: type 2 Diabetes mellitus superintendent terminal insulin use: with jail use Diabetes mellitus complication status: with hyperglycemia Qualified Code(s): E11.65 - Type 2 diabetes mellitus with hyperglycemia; Z79.4 - ferry terminal supervisor (current) use of insulin (4) Hypertension Qualifiers: Hypertension type: essential hypertension Qualified Code(s): I10 - Essential (primary) hypertension
[2019-06-02] MEDS: Insulin LISPRO 300 UNITS/3 ML VIAL SQ SCH ×4 (08:22→23:00)
[2019-06-02] MEDS: Mirtazapine 15 MG TABLET PO SCH ×3 (08:44→22:59)
[2019-06-02] MEDS ORDERED: Insulin DETEMIR 100 UNIT/ML X5UNITS SQ SCH ×2 (09:00→21:00)
[2019-06-02] MEDS ORDERED: Isovue-370 500 ML BOTTLE IVP ONE (10:01)
[2019-06-02] MEDS: 0.9 % Sodium Chloride 1,000 ML IVC SCH (12:08)
--- NOTE | 2019-06-02 15:00 | Orthopedics Progress Note ---
Date of Encounter: 06/02/19 Time of Encounter: 14:53 Subjective Principal diagnosis: Left upper extremity abscess Interval history: The patient is 2 weeks out status post a left upper extremity incision drainage of his arm/elbow and forearm. He was seen with outpatient follow-up on Tuesday and his infection appeared to be almost completely cleared with no erythema and no swelling, minimal clear drainage. There is a possible history of the patient shooting up again with heroin 3 days ago. The patient went to the emergency room yesterday at [place], where [place] pus was noted coming of the incisions. The patient states that he did not shrimp picker his prescriptions for clindamycin and penicillin on Tuesday. Left upper extremity: Dressings were taken down, the patient has significant swelling and erythema on the medial aspect from his upper arm down to the proximal third of his forearm. The sutures are in place and the wound is starting to gap open. There is thin yellow drainage coming from the olecranon incision. Range of motion of the elbow is limited due to swelling and pain. Mild swelling of hand grossly neurovascular intact. Assessment: Patient has recurrence of his abscess. His diabetes mellitus is also out of control. Plan: Patient will be taken back to the operating room tomorrow for repeat I&D. Elevation of left upper extremity Continue IV antibiotics, and may be tapered for strep Tighter control of his diabetes Objective Vital signs: Vital Signs Temp Pulse Resp BP Pulse Ox 06/02/19 11:31 99.1 F 61 20 158/92 97 06/02/19 07:50 98.2 F 90 17 146/93 98 06/02/19 04:07 97.9 F 71 17 170/85 98 06/02/19 01:11 53 148/92 06/01/19 23:35 164/94 06/01/19 23:20 175/92 06/01/19 23:05 164/105 06/01/19 22:50 178/103 06/01/19 22:44 98.5 F 86 17 96 06/01/19 22:27 179/92 06/01/19 19:14 97.5 F L 87 17 178/95 99 Intake and Output 06/01/19 06/02/19 06/02/19 23:59 07:59 15:59 Intake Total 200 / 200 1590 / 1830 240 / 1830 Output Total 300 / 300 0 / 300 Balance 200 / 200 1290 / 1530 240 / 1530 Intake: IV Fluids 1350 / 1350 0.9 % Sodium Chloride 1,000 ML 1000 / 1000 @ 125 mls/hr IVC .Q8H ASIYA Rx#: [id number] Zosyn 3.375 GM In 0.9 % Sodium 100 / 100 Chloride (Mini-Bag +) 100 ML @ 25 mls/hr IVPB Q8HR ASIYA Rx#: [id number] Vancocin 1,000 MG In 0.9 % 250 / 250 Sodium Chloride 250 ML @ 167 mls/hr IVPB Q12H ASIYA Rx#: [id number] Oral 200 / 200 240 / 480 240 / 480 Output: Urine 300 / 300 0 / 300 Other: Meal Breakfast Percent of Meal Consumed 100% # Voids 1 1 # Bowel Movements 1 Weight 59.8 kg 60 kg Blood Glucose* 467 138 75 Patient Weight 06/02/19 23:59 Weight 60 kg - Labs CBC & BMP: 06/02/19 02:37 06/02/19 02:37 Labs: Abnormal lab results WBC 13.6 K/mcL (4.3-11.1) H 06/02/19 02:37 RBC 4.10 M/mcL (4.19-5.50) L 06/02/19 02:37 Hgb 12.3 g/dL (12.9-16.9) L 06/02/19 02:37 Hct 37.1 % (37.5-50.1) L 06/02/19 02:37 10.4 K/mcL (1.6-8.9) H 06/02/19 02:37 ESR 59 mm/hr (0-10) H 06/02/19 02:37 Sodium 135 mEq/L (136-145) L 06/02/19 02:37 Potassium 2.7 mEq/L (3.5-5.1) L 06/02/19 02:37 0.67 mg/dL (0.70-1.30) L 06/02/19 02:37 POC Glucose 55 mg/dL (70-99) L 06/02/19 11:44 279 (280-300) L 06/02/19 02:37 Calcium 7.8 mg/dL (8.6-10.3) L 06/02/19 02:37 Phosphorus 1.9 mg/dL (2.7-4.5) L 06/02/19 02:37 Magnesium 1.5 mg/dL (1.6-2.6) L 06/02/19 02:37 53 mg/L (Less than 10) H 06/02/19 09:51 5.9 g/dL (6.4-8.9) L 06/02/19 02:37 2.2 g/dL (3.5-5.7) L 06/02/19 02:37 3.7 g/dL (2.4-3.5) H 06/02/19 02:37 0.6 (1.1-2.2) L 06/02/19 02:37 Consult Discharge Plan - Plan Referrals: NONE,PCP [Primary Care Provider] -
[2019-06-03] MEDS: *HR* OxyCODONE Immed Rel 5 MG TABLET PO PRN ×2 (03:25→14:46)
[2019-06-03] MEDS ORDERED: *HR* FentaNYL (PF) 100 MCG/2 ML VIAL ONE (07:21)
[2019-06-03] MEDS ORDERED: Ondansetron 4 MG/2 ML VIAL ONE (07:21)
[2019-06-03] MEDS ORDERED: *HR* Midazolam HCl 2 MG/2 ML VIAL ONE (07:21)
[2019-06-03] MEDS ORDERED: Dexamethasone 4 MG/ML VIAL ONE (07:21)
[2019-06-03] MEDS ORDERED: Lidocaine -MPF 2% 2 ML VIAL ONE (07:21)
[2019-06-03] MEDS ORDERED: *HR* Propofol 200 MG/20 ML VIAL IVP ONE (07:22)
[2019-06-03 07:25] LABS: Basophils # 0.1 K/mcL (0.0-0.2); Basophils % 0.8 %; Eosinophils # 0.3 K/mcL (0.0-0.6); Eosinophils % 2.1 %; Hematocrit 35.9 % (37.5-50.1); Hemoglobin 11.6 g/dL (12.9-16.9); Immature Granulocytes % 0.6 % (0-4); Lymphocytes # 2.5 K/mcL (0.6-4.6); Lymphocytes % 17.4 %; Mean Corpuscular HGB Conc 32.3 g/dL (31.6-35.5); Mean Corpuscular Hemoglobin 29.6 pg (28.0-33.3); Mean Corpuscular Volume 91.6 fL (83.0-100.0); Mean Platelet Volume 10.9 fL (9.4-12.4); Neutrophils # 10.3 K/mcL (1.6-8.9); Platelet Count 354 K/mcL (140-400); Red Blood Count 3.92 M/mcL (4.19-5.50); Red Cell Distribution Width 13.3 % (11.5-14.5); Segmented Neutrophils % 72.1 %; White Blood Count 14.2 K/mcL (4.3-11.1)
[2019-06-03 07:46] LABS: BUN/Creatinine Ratio 16 (6-26); Blood Urea Nitrogen 12 mg/dL (6-20); Calcium 7.7 mg/dL (8.6-10.3); Carbon Dioxide 27 mEq/L (23-29); Chloride 99 mEq/L (98-107); Glucose 174 mg/dL (70-105); Osmolality,Calculated 280 (280-300); Potassium 3.8 mEq/L (3.5-5.1); Sodium 133 mEq/L (136-145); eGFR For African Americans > 60 (> 60); eGFR For Non-African Americans > 60 (> 60)
[2019-06-03] MEDS: Piperacillin/Tazobactam 3.375 GM in 0.9 % Sodium Chloride Mini Bag 100 ML IVPB SCH ×2 (08:00→15:32)
[2019-06-03] MEDS: Insulin LISPRO 300 UNITS/3 ML VIAL SQ SCH ×3 (08:04→20:16)
[2019-06-03] MEDS: Mirtazapine 15 MG TABLET PO SCH ×3 (08:54→19:44)
--- NOTE | 2019-06-03 09:41 | Internal Med Progress Note ---
<Delon Hartley N - Last Filed: 06/03/19 12:16> Hospitalist Progress Note - Encounter Date of Encounter: 06/03/19 Time of Encounter: 08:00 - Subjective Interval History: Patient lying in bed comfortably upon entering room. Patient states he was seen by ortho yesterday and discussed plan to have an I and D done today. Patient st ates he is hungry, but ever otherwise doing well. Patient denies fever, chills, abdominal pain, nausea, vomiting, diarrhea, chest pain, or shortness of breath. - Exam Vitals: Temp Pulse Resp BP Pulse Ox 98.6 F 69 18 128/75 98 06/03/19 07:56 06/03/19 07:56 06/03/19 07:56 06/03/19 07:56 06/03/19 07:56 Exam: General appearance: Awake alert, answers questions appropriately Head exam: atraumatic, normocephalic Eye exam: EOMI. no scleral icterus. ENT exam: mucous membranes moist, normal oropharynx Neck exam general surgery: supple, trachea midline Respiratory exam: CTAB. No wheezes, rales, or rhonchi Cardiovascular exam: +S1, +S2. No murmurs, rubs, or gallops. GI/Abdominal exam: normal bowel sounds, chronically distended abdomen. No guarding or rebound tenderness. Extremities exam: Left upper extremity with wrapping around the elbow. Left hand and forearm appear swollen as compared to the right with some warmth to touch. Bilateral pulses intact in upper extremities. no evidence of lower extremity edema. Neurological exam: alert, oriented X3, no focal deficits Psychiatric exam: normal affect, normal mood - Assessment and Plan (1) Abscess Current Visit: No Status: Acute Assessment and Plan: Ortho saw patient and will perform I&D today. Cultures grew Strep B on 05/19, awaiting blood cultures. Patient met only 1 of the core SIRS criteria on Admission with WBC of 17.2 -I&D scheduled today. -Vancomycin and Zosyn day 2 (2) Cellulitis Current Visit: No Status: Acute Assessment and Plan: LUE with erythema and edema. Patient states it has improved since abx treatment started yesterday. MRI of left upper extremity from 06/02 shows findings suggestive of septic olecranon bursitis due to gas within the collection -We will go consulted and will perform surgery 06/03. -Continue empiric antibiotics and await further instructions from ortho service. (3) Diabetes Current Visit: No Status: Chronic Assessment and Plan: Patient's blood sugar on admission was 467. A1c on 05/19 was 13.9%. Since that time blood sugars have normalized. -Levemir at 15 units subcutaneous at bedtime with medium dose sliding scale insulin -We will continue to monitor blood glucose and adjust as needed. (4) Hypertension Current Visit: No Status: Chronic Assessment and Plan: BP currently controlled -Patient placed on home medication will Continue to monitor DVT Prophylaxis: SCDs in place - Time Spent with Patient Total time spent is greater than 50% in coordination of care (as documented) at patient's floor/unit and/or counseling patient: Internal Medicine: Result - Labs CBC & Chem 7: 06/03/19 06:00 06/03/19 06:00 Labs: Short CBC 06/03/19 Range/Units 06:00 WBC 14.2 H (4.3-11.1) K/mcL Hgb 11.6 L (12.9-16.9) g/dL Hct 35.9 L (37.5-50.1) % Plt Count 354 (140-400) K/mcL Neutrophils # 10.3 H (1.6-8.9) K/mcL BMP 06/03/19 06:00 Sodium 133 L Potassium 3.8 Chloride 99 Carbon Dioxide 27 BUN 12 Creatinine 0.73 Glucose 174 H Calcium 7.7 L - ABG Interpretation ABG results: PT/INR, D-dimer PT 10.5 Seconds (9.4-12.1) 06/02/19 02:37 - Impressions Impressions Elbow MRI 06/02/19 11:22 IMPRESSION: 1. Limited exam with only axial image sequences obtained. 2. Well-circumscribed fluid collection containing gas at the olecranon bursa measuring 1.9 x 2.7 x 4.9 cm. Findings most suggestive of septic olecranon bursitis given the gas within the collection. 3. Diffuse subcutaneous edema. Previously described fluid collection at the antecubital fossa on prior CT is not visualized on the current exam. 4. Large nonspecific elbow effusion. Please note sterility of joint fluid is indeterminate on imaging. D/ / Nic Kulkarni MD / Nic Kulkarni MD Interpreting Provider: Nic Kulkarni MD Elbow X-Ray 06/02/19 17:46 IMPRESSION: 1. Redemonstration of gas at the level of the olecranon bursa corresponding to MRI finding same day which were suspicious for septic bursitis. 2. Nonspecific elbow effusion. 3. No acute osseous abnormality or radiographic evidence for osteomyelitis. D/ / Nic Kulkarni MD / Nic Kulkarni MD Interpreting Provider: Nic Kulkarni MD Consult Discharge Plan - Plan Referrals: NONE,PCP [Primary Care Provider] - <Alisha Conde - Last Filed: 06/03/19 13:54> Hospitalist Progress Note - Encounter Date of Encounter: 06/03/19 - Exam Vitals: Temp Pulse Resp BP Pulse Ox 97.6 F 73 16 126/82 96 06/03/19 13:30 06/03/19 13:30 06/03/19 13:30 06/03/19 13:30 06/03/19 13:30 - Assessment and Plan (1) Abscess of left arm Current Visit: No Status: Acute (2) Diabetes Current Visit: No Status: Chronic (3) Hypertension Current Visit: No Status: Chronic (4) Cellulitis Current Visit: No Status: Acute - Time Spent with Patient Total time spent is greater than 50% in coordination of care (as documented) at patient's floor/unit and/or counseling patient: Internal Medicine: Result - Labs CBC & Chem 7: 06/03/19 06:00 06/03/19 06:00 Labs: Short CBC 06/03/19 Range/Units 06:00 WBC 14.2 H (4.3-11.1) K/mcL Hgb 11.6 L (12.9-16.9) g/dL Hct 35.9 L (37.5-50.1) % Plt Count 354 (140-400) K/mcL Neutrophils # 10.3 H (1.6-8.9) K/mcL BMP 06/03/19 06:00 Sodium 133 L Potassium 3.8 Chloride 99 Carbon Dioxide 27 BUN 12 Creatinine 0.73 Glucose 174 H Calcium 7.7 L - ABG Interpretation ABG results: PT/INR, D-dimer PT 10.5 Seconds (9.4-12.1) 06/02/19 02:37 - Impressions Impressions Elbow MRI 06/02/19 11:22 IMPRESSION: 1. Limited exam with only axial image sequences obtained. 2. Well-circumscribed fluid collection containing gas at the olecranon bursa measuring 1.9 x 2.7 x 4.9 cm. Findings most suggestive of septic olecranon bursitis given the gas within the collection. 3. Diffuse subcutaneous edema. Previously described fluid collection at the antecubital fossa on prior CT is not visualized on the current exam. 4. Large nonspecific elbow effusion. Please note sterility of joint fluid is indeterminate on imaging. D/ / Nic Kulkarni MD / Nic Kulkarni MD Interpreting Provider: Nic Kulkarni MD Elbow X-Ray 06/02/19 17:46 IMPRESSION: 1. Redemonstration of gas at the level of the olecranon bursa corresponding to MRI finding same day which were suspicious for septic bursitis. 2. Nonspecific elbow effusion. 3. No acute osseous abnormality or radiographic evidence for osteomyelitis. D/ / Nic Kulkarni MD / Nic Kulkarni MD Interpreting Provider: Nic Kulkarni MD - Attending Attestation I examined this patient and my medical decision-making was reviewed with the Resident Physician. I agree with the documented findings, disposition and treatment plan as described except to the extent set forth below. __ <Delon Hartley - Last Filed: 06/03/19 12:16> (2) Cellulitis Qualifiers: Site of cellulitis: extremity Site of cellulitis of extremity: upper extremity Laterality: left Qualified Code(s): L03.114 - Cellulitis of left upper limb (3) Diabetes Qualifiers: Diabetes mellitus type: type 2 Diabetes mellitus prison insulin use: with intermediate accountant use Diabetes mellitus complication status: with hyperglycemia Qualified Code(s): E11.65 - Type 2 diabetes mellitus with hyperglycemia; Z79.4 - buttermaker helper (current) use of insulin (4) Hypertension Qualifiers: Hypertension type: essential hypertension Qualified Code(s): I10 - Essential (primary) hypertension <Alisha Conde - Last Filed: 06/03/19 13:54> (2) Diabetes Qualifiers: Diabetes mellitus type: type 2 Diabetes mellitus prison insulin use: with prison use Diabetes mellitus complication status: with hyperglycemia Qualified Code(s): E11.65 - Type 2 diabetes mellitus with hyperglycemia; Z79.4 - shelter (current) use of insulin (3) Hypertension Qualifiers: Hypertension type: essential hypertension Qualified Code(s): I10 - Essential (primary) hypertension (4) Cellulitis Qualifiers: Site of cellulitis: extremity Site of cellulitis of extremity: upper extremity Laterality: left Qualified Code(s): L03.114 - Cellulitis of left upper limb
[2019-06-03] MEDS ORDERED: Albuterol 2.5 MG/3 ML NEBULIZER IH ONE ×2 (10:08→13:09)
--- NOTE | 2019-06-03 10:11 | Anesthesia Evaluation PreOp ---
Date of Encounter: 06/03/19 Time of Encounter: 10:10 - Past History Planned Operation: Incision and Drainage Left Upper Extremity Cardiac History: HTN, Hyperlipidemia Pulmonary History: Smoker, Asthma, COPD, LEONEL Dx (does not use CPAP) POSTAL MAIL CARRIER History: Denies Any Significant HX Other Medical History: Hepatic (Hep C), Renal, Diabetes Type II, Other (Anxiety Depression) Alcohol Use: none Drug use: methamphetamine, IV Drug Use Medications and Allergies Insulin Glargine [Lantus] 20 unit SQ BID 04/12/17 [History] Mirtazapine [Remeron] 15 mg PO TID 04/12/17 [History] Metoprolol Tartrate [Lopressor] 50 mg PO BID #60 tablet 12/16/17 [Rx] Albuterol Sulfate [Proair Hfa] 1 puff IH Q6H PRN 05/21/19 [History] Insulin ASPART [NovoLOG] 100 unit SQ TIDAC 05/21/19 [History] Lisinopril [Zestril] 10 mg PO DAILY 05/21/19 [History] Montelukast [Singulair] 10 mg PO QPM 05/21/19 [History] metFORMIN [Glucophage] 500 mg PO BID 05/21/19 [History] Ibuprofen [Ibu] 800 mg PO TID PRN 06/01/19 [History] Lovastatin [Mevacor] 20 mg PO HS 06/01/19 [History] Penicillin VK [Pencillin VK] 500 mg PO QID 06/01/19 [History] cloNIDine HCl [CloNIDine HCl] 0.1 mg PO QID PRN 06/01/19 [History] Allergy/AdvReac Type Severity Reaction Status Date / Time Cyclobenzaprine AdvReac See Verified 12/22/16 14:27 [From Flexeril] Comments - Meds/Allergy Pre-op Review Medications Reviewed: Yes Allergies Reviewed: Yes Beta Blockers on Current Med List: Yes (Metoprolol today 0800) Anesthesia Results - Labs 06/03/19 06:00 06/03/19 06:00 - Imaging EKG: report reviewed (SR) Anesthesia Exam O2 Sat Weight 65.48 kg O2 Sat by Pulse Oximetry 98 O2 Sat by Pulse Oximetry 100 O2 Sat by Pulse Oximetry 97 O2 Sat by Pulse Oximetry 97 O2 Sat by Pulse Oximetry 97 O2 Sat by Pulse Oximetry 97 Vital Signs Temp Pulse Resp BP Pulse Ox 97.5 F L 87 17 178/95 99 06/01/19 19:14 06/01/19 19:14 06/01/19 19:14 06/01/19 19:14 06/01/19 19:14 Height: 5'7 Weight: 144 lbs NPO (# of Hours): MN Pain Scale: 0 - HEENT Pupil (Motor): Pupils equal, EOMI Mallampati: II Teeth: Edentulous Oral Opening: Greater than 3 - POSTAL MAIL CARRIER LOC: Oriented POSTAL MAIL CARRIER Motor: Normal RUE, Normal LUE, Normal RLE, Normal LLE, Normal Face POSTAL MAIL CARRIER Sensory: Normal: RUE, LUE, RLE, LLE, Face - Cardiac Rhythm: Regular Murmur: None JVD: No Carotid Bruit: No - Pulmonary Breath Sounds: bilateral Clear Respiratory Effort: Symmetrical Anesthesia Assess/Plan ASA Score: 3 (HTN COPD DM Hep C) Level of consciousness: Cooperative, Oriented Anesthetic Plan: General Autologous Blood: No Monitoring Plan: Standard Monitors Recovery Plan: PACU (Discussed GA, agrees to proceed)
[2019-06-03] MEDS ORDERED: *HR* OxyCODONE Immed Rel 5 MG TABLET PO PRN ×2 (10:28→13:09)
[2019-06-03] MEDS ORDERED: *HR* Promethazine 25 MG/ML VIAL IVP PRN ×2 (10:28→13:09)
[2019-06-03] MEDS ORDERED: *HR* HYDROmorphone (PF) 1 MG/ML SYRINGE IVP PRN ×2 (10:28→13:09)
[2019-06-03] MEDS ORDERED: Ondansetron 4 MG/2 ML VIAL IVP ONE ×2 (10:28→13:09)
[2019-06-03] MEDS ORDERED: Ketorolac 30 MG/ML VIAL ONE (12:00)
--- NOTE | 2019-06-03 12:10 | Operative Note ---
Date of procedure: 06/03/19 Pre-op diagnosis: Left elbow/forearm recurrent abscess Post-op diagnosis: same Procedure: Left elbow/forearm incision and drainage of deep abscess Anesthesia: ELVIRAA Surgeon: Yunier Crandall Was there an catering administrative assistant present: No Estimated blood loss (cc): 25 Specimen: Cultures Condition: stable Disposition: PACU Procedure in Detail: Indications: Patient is 53-year-old [id number] gentleman who had a deep left elbow abscess extending into the upper arm and down into the forearm within the flexor/pronator muscle. The patient underwent an I&D 2 weeks ago and was doing well. I saw him in the office on Tuesday with the infection resolving. The patient had a recurrence of infection with abscess draining fluid from the medial side but also from the olecranon bursa excision wound. Previous cultures grew out strep agalactiae. Procedure: The patient was brought into the operating room and placed on or table in supine position. He underwent general anesthesia. The left upper extremity was prepped and draped in usual sterile fashion. A timeout was performed. The sutures were removed from the medial aspect of the elbow and posteriorly. The patient had cuba pus coming out from the posterior olecranon incision. A set of repeat cultures were taken for aerobic and anaerobic. Full-thickness skin flaps were elevated along with significant edema fluid and pus pouring out. Next, moving to the medial aspect of the elbow, the 15 cm medial curvilinear incision was reopened with mild purulent fluid. The tissue was very indurated and hard on the medial aspect of the elbow. Once again going anteriorly and proximally up of the biceps, then distally over the flexor/pronator muscle into the forearm. The wound was then copiously irrigated with normal saline via pulse lavage. Likewise the posterior incision also irrigated with pulse lavage. The skin flaps were elevated connecting both incisions.. The skin edges were sharply debrided with a scalpel at both incisions. The full-thickness skin and subcutaneous tissue was closed with 3-0 nylon vertical mattress and simple sutures. A 1 cm opening was left proximally and distally, at the medial incision. Also a 1 cm gap was left open proximally at the olecranon. The open areas were then filled with quarter-inch iodoform packing. Sterile dressings were applied. The patient was extubated and taken to the recovery room.
[2019-06-03] MEDS ORDERED: Dextrose Gel 15 GM/37.5 ML TUBE PO PRN ×2 (13:09)
[2019-06-03] MEDS ORDERED: Ondansetron 4 MG/2 ML VIAL IVP PRN (13:09)
[2019-06-03] MEDS ORDERED: cloNIDine HCl 0.1 MG TABLET PO PRN (13:09)
[2019-06-03] MEDS ORDERED: Naloxone 0.4 MG/ML INJ IVP PRN (13:09)
[2019-06-03] MEDS ORDERED: D5% in Water 1,000 ML IVC PRN (13:09)
[2019-06-03] MEDS ORDERED: *HR* Dextrose 50 % in Water (Syg) 50 ML SYRINGE IVP PRN (13:09)
[2019-06-03] MEDS ORDERED: Acetaminophen 325 MG TABLET PO PRN (13:09)
--- NOTE | 2019-06-03 13:37 | Anesthesia Evaluation Post Op ---
Date of Encounter: 06/03/19 Time of Encounter: 13:20 - Vital Signs Vital Signs: Vital Signs/O2 Sat/Glucose, Most Current Temp Pulse Resp BP Pulse Ox 06/03/19 13:00 97.9 F 74 14 121/83 96 06/03/19 12:46 98.7 F 75 14 122/82 97 06/03/19 12:36 98.7 F 77 14 119/85 97 06/03/19 12:26 78 17 111/77 100 06/03/19 12:16 75 14 102/71 100 06/03/19 12:06 98.4 F 74 12 93/66 100 - Lungs Lungs: Clear Ascult./Percussion - Airway Airway: Non-obstructed - Cardiovascular Regular Rate - Mental Status Mental Status: Alert & Oriented, Answers Appropriately - Pain Pain Scale: 0 - Nausea Vomiting Nausea Vomiting: Not Present - Hydration Hydration: Ice chips - Discharge PostOp Status: Transfer Patient to floor
[2019-06-03] MEDS: *HR* HYDROcodone/Acet 5/325 mg TABLET PO PRN (19:43)
[2019-06-03] MEDS: Insulin DETEMIR 100 UNIT/ML X5UNITS SQ SCH (19:46)
[2019-06-04] MEDS: Piperacillin/Tazobactam 3.375 GM in 0.9 % Sodium Chloride Mini Bag 100 ML IVPB SCH ×3 (01:16→17:13)
[2019-06-04] MEDS: *HR* OxyCODONE Immed Rel 5 MG TABLET PO PRN ×3 (05:14→20:54)
[2019-06-04 07:53] LABS: Basophils # 0.1 K/mcL (0.0-0.2); Basophils % 0.5 %; Eosinophils # 0.1 K/mcL (0.0-0.6); Eosinophils % 0.9 %; Hematocrit 34.2 % (37.5-50.1); Hemoglobin 10.9 g/dL (12.9-16.9); Immature Granulocytes % 0.5 % (0-4); Lymphocytes # 2.9 K/mcL (0.6-4.6); Lymphocytes % 19.2 %; Mean Corpuscular HGB Conc 31.9 g/dL (31.6-35.5); Mean Corpuscular Hemoglobin 30.4 pg (28.0-33.3); Mean Corpuscular Volume 95.3 fL (83.0-100.0); Mean Platelet Volume 11.1 fL (9.4-12.4); Monocytes % 6.3 %; Platelet Count 324 K/mcL (140-400); Red Blood Count 3.59 M/mcL (4.19-5.50); Red Cell Distribution Width 13.4 % (11.5-14.5); Segmented Neutrophils % 72.6 %; White Blood Count 15.2 K/mcL (4.3-11.1)
[2019-06-04 07:59] LABS: BUN/Creatinine Ratio 25 (6-26); Blood Urea Nitrogen 23 mg/dL (6-20); Calcium 7.7 mg/dL (8.6-10.3); Carbon Dioxide 27 mEq/L (23-29); Chloride 101 mEq/L (98-107); Glucose 274 mg/dL (70-105); Osmolality,Calculated 293 (280-300); Potassium 4.1 mEq/L (3.5-5.1); Sodium 135 mEq/L (136-145); eGFR For African Americans > 60 (> 60); eGFR For Non-African Americans > 60 (> 60)
[2019-06-04] MEDS: Mirtazapine 15 MG TABLET PO SCH ×3 (08:46→20:55)
--- NOTE | 2019-06-04 08:47 | Internal Med Progress Note ---
Hospitalist Progress Note - Encounter Date of Encounter: 06/04/19 Time of Encounter: 08:47 - Subjective Interval History: Patient laying in bed comfortably upon entering the room. Patient states he had his procedure done yesterday and the swelling has decreased. Patient does have a complaint of left axillary pain described as sharp and intermittent throughout the night. Pt states the pain is not worse with movement or exertion and it is not associated with SOB or any other symptoms. Pt denies fever, chills, SOB, Abd pain, n/v/d, or leg swelling. - Exam Vitals: Temp Pulse Resp BP Pulse Ox 98.1 F 63 16 120/75 96 06/04/19 07:57 06/04/19 07:57 06/04/19 07:57 06/04/19 07:57 06/04/19 07:57 Exam: General appearance: Awake alert, answers questions appropriately Head exam: atraumatic, normocephalic Eye exam: EOMI. no scleral icterus. ENT exam: mucous membranes moist, normal oropharynx Neck exam general surgery: supple, trachea midline Respiratory exam: CTAB. No wheezes, rales, or rhonchi Cardiovascular exam: +S1, +S2. No murmurs, rubs, or gallops. GI/Abdominal exam: normal bowel sounds, chronically distended abdomen. No guarding or rebound tenderness. Extremities exam: Left upper extremity with wrapping around the elbow. Left hand and forearm appear swollen as compared to the right with some warmth to touch. Betadine staining to the left upper extremity following surgery. Neurological exam: alert, oriented X3, no focal deficits Psychiatric exam: normal affect, normal mood - Assessment and Plan (1) Abscess Current Visit: No Status: Acute Assessment and Plan: I&D performed on 06/03 to clean out wound. Cultures grew Strep B on 05/19, awaiting blood cultures. Patient met only 1 of the core SIRS criteria on Admission with WBC of 17.2 WBC up to 15.2 06/04 following surgery. Afebrile -ID consulted will follow recommendations -Awaiting Ortho follow up for recommendations -Vancomycin and Zosyn day 3 (2) Cellulitis Current Visit: No Status: Acute Assessment and Plan: LUE with erythema and edema. Patient states it has improved since abx treatment started yesterday. MRI of left upper extremity from 06/02 shows findings suggestive of septic olecranon bursitis due to gas within the collection Surgery Performed 06/03 to clean wound -Continue empiric antibiotics and await further instructions from ortho service. (3) Diabetes Current Visit: No Status: Chronic Assessment and Plan: Patient's blood sugar on admission was 467. A1c on 05/19 was 13.9%. -Levemir at 15 units subcutaneous at bedtime with medium dose sliding scale insulin -We will continue to monitor blood glucose and adjust as needed. (4) Hypertension Current Visit: No Status: Chronic Assessment and Plan: BP currently controlled -Patient placed on home medication will Continue to monitor (5) Substance abuse Current Visit: Yes Status: Acute Assessment and Plan: H/o IVDA. Reports he recently injected into an already cellulitic site -Currenly on Vancomycin and zosyn -ID consulted -Will consider further work up if clinically applicable DVT Prophylaxis: SCDs in place - Time Spent with Patient Total time spent is greater than 50% in coordination of care (as documented) at patient's floor/unit and/or counseling patient: Internal Medicine: Result - Labs CBC & Chem 7: 06/04/19 06:42 06/04/19 06:42 Labs: Short CBC 06/04/19 Range/Units 06:42 WBC 15.2 H (4.3-11.1) K/mcL Hgb 10.9 L (12.9-16.9) g/dL Hct 34.2 L (37.5-50.1) % Plt Count 324 (140-400) K/mcL Neutrophils # 11.0 H (1.6-8.9) K/mcL BMP 06/04/19 06:42 Sodium 135 L Potassium 4.1 Chloride 101 Carbon Dioxide 27 BUN 23 H Creatinine 0.91 Glucose 274 H Calcium 7.7 L - ABG Interpretation ABG results: PT/INR, D-dimer PT 10.5 Seconds (9.4-12.1) 06/02/19 02:37 Consult Discharge Plan - Plan Referrals: NONE,PCP [Primary Care Provider] - (2) Cellulitis Qualifiers: Site of cellulitis: extremity Site of cellulitis of extremity: upper extremity Laterality: left Qualified Code(s): L03.114 - Cellulitis of left u pper limb (3) Diabetes Qualifiers: Diabetes mellitus type: type 2 Diabetes mellitus fci insulin use: with termite helper use Diabetes mellitus complication status: with hyperglycemia Qualified Code(s): E11.65 - Type 2 diabetes mellitus with hyperglycemia; Z79.4 - [facility] (current) use of insulin (4) Hypertension Qualifiers: Hypertension type: essential hypertension Qualified Code(s): I10 - Essential (primary) hypertension
[2019-06-04] MEDS: Insulin LISPRO 300 UNITS/3 ML VIAL SQ SCH ×4 (08:49→20:55)
[2019-06-04] MEDS: *HR* HYDROcodone/Acet 5/325 mg TABLET PO PRN ×2 (08:53→17:13)
--- NOTE | 2019-06-04 15:32 | Orthopedics Progress Note ---
Date of Encounter: 06/04/19 Time of Encounter: 12:50 - Assessment and Plan (1) Abscess of left arm Current Visit: No Status: Acute S/P - left elbow/forearm I&D 06/03 Packing x3 removed from incisions, patient tolerated well. Begin local wound care cleansing with soap/water TID and recover with dry gauze dressings. can change more often as needed based on drainage. continue to ice and elevate arm. continue ROM as tolerated. Continue pain control per primary team. Continue IV abx per primary team - currently on vancomycin and zosyn. Awaiting final cx from surgery yesterday. 05/19 cs grew strep agalactiae Subjective Principal diagnosis: Left upper extremity abscess Interval history: Patient doing well today. States still having a lot of pain in the arm but no new symptoms or concerns at this time. States he had been trying to keep his arm elevated. Objective Vital signs: Vital Signs Temp Pulse Resp BP Pulse Ox 06/04/19 11:35 98.1 F 60 15 120/70 97 06/04/19 08:58 96 06/04/19 07:57 98.1 F 63 16 120/75 96 06/04/19 04:12 98.2 F 60 15 126/80 97 06/03/19 23:14 98.3 F 62 17 117/73 98 06/03/19 20:23 97.9 F 58 17 103/67 99 06/03/19 15:53 98.0 F 76 16 131/81 96 Intake and Output 06/03/19 06/04/19 06/04/19 23:59 07:59 15:59 Intake Total 350 / 450 100 / 660 560 / 660 Output Total 0 / 0 Balance 350 / 425 100 / 660 560 / 660 Intake: IV Fluids 350 / 450 100 / 100 Zosyn 3.375 GM In 0.9 % Sodium 100 / 100 100 / 100 Chloride (Mini-Bag +) 100 ML @ 25 mls/hr IVPB Q8HR [facility] Rx#: [id number] Vancocin 1,250 MG In 0.9 % 250 / 250 Sodium Chloride 250 ML @ 166.67 mls/hr IVPB Q12H [facility] Rx#: [id number] Oral 0 / 0 0 / 560 560 / 560 Output: Urine 0 / 0 Other: Meal Breakfast Percent of Meal Consumed 100% # Voids 1 1 Weight 66.4 kg Blood Glucose* 355 334 139 Patient Weight 06/04/19 23:59 Weight 66.4 kg Incision: red (continued erythema and swelling noted to left elbow with sutures and packing in place. bloody drainage expressed after removal of packing x3 from incisional areas. elboe motion limited 20-90 degress secondary to pain. full wrist and hand motion. sensation intact distally brisk cap refill.) - Labs CBC & BMP: 06/04/19 06:42 06/04/19 06:42 Labs: Abnormal lab results WBC 15.2 K/mcL (4.3-11.1) H 06/04/19 06:42 RBC 3.59 M/mcL (4.19-5.50) L 06/04/19 06:42 Hgb 10.9 g/dL (12.9-16.9) L 06/04/19 06:42 Hct 34.2 % (37.5-50.1) L 06/04/19 06:42 11.0 K/mcL (1.6-8.9) H 06/04/19 06:42 ESR 59 mm/hr (0-10) H 06/02/19 02:37 Sodium 135 mEq/L (136-145) L 06/04/19 06:42 Potassium 2.7 mEq/L (3.5-5.1) L 06/02/19 02:37 BUN 23 mg/dL (6-20) H 06/04/19 06:42 0.67 mg/dL (0.70-1.30) L 06/02/19 02:37 Glucose 274 mg/dL (70-105) H 06/04/19 06:42 POC Glucose 139 mg/dL (70-99) H 06/04/19 12:16 279 (280-300) L 06/02/19 02:37 Calcium 7.7 mg/dL (8.6-10.3) L 06/04/19 06:42 Phosphorus 1.9 mg/dL (2.7-4.5) L 06/02/19 02:37 Magnesium 1.5 mg/dL (1.6-2.6) L 06/02/19 02:37 53 mg/L (Less than 10) H 06/02/19 09:51 5.9 g/dL (6.4-8.9) L 06/02/19 02:37 2.2 g/dL (3.5-5.7) L 06/02/19 02:37 3.7 g/dL (2.4-3.5) H 06/02/19 02:37 0.6 (1.1-2.2) L 06/02/19 02:37 Consult Discharge Plan - Plan Referrals: NONE,PCP [Primary Care Provider] -
[2019-06-04] MEDS: Insulin DETEMIR 100 UNIT/ML X5UNITS SQ SCH (20:55)
[2019-06-05] MEDS: Piperacillin/Tazobactam 3.375 GM in 0.9 % Sodium Chloride Mini Bag 100 ML IVPB SCH ×3 (00:35→15:04)
[2019-06-05] MEDS: *HR* OxyCODONE Immed Rel 5 MG TABLET PO PRN ×2 (03:37→17:48)
[2019-06-05 06:04] LABS: Basophils # 0.1 K/mcL (0.0-0.2); Eosinophils # 0.2 K/mcL (0.0-0.6); Eosinophils % 1.8 %; Hematocrit 32.1 % (37.5-50.1); Hemoglobin 10.5 g/dL (12.9-16.9); Immature Granulocytes % 0.6 % (0-4); Lymphocytes # 2.7 K/mcL (0.6-4.6); Lymphocytes % 26.9 %; Mean Corpuscular HGB Conc 32.7 g/dL (31.6-35.5); Mean Corpuscular Hemoglobin 30.5 pg (28.0-33.3); Mean Corpuscular Volume 93.3 fL (83.0-100.0); Mean Platelet Volume 10.7 fL (9.4-12.4); Monocytes # 0.9 K/mcL (0.0-1.3); Monocytes % 8.4 %; Neutrophils # 6.2 K/mcL (1.6-8.9); Platelet Count 302 K/mcL (140-400); Red Blood Count 3.44 M/mcL (4.19-5.50); Red Cell Distribution Width 13.2 % (11.5-14.5); Segmented Neutrophils % 61.3 %; White Blood Count 10.1 K/mcL (4.3-11.1)
[2019-06-05 06:25] LABS: BUN/Creatinine Ratio 21 (6-26); Blood Urea Nitrogen 16 mg/dL (6-20); Calcium 7.7 mg/dL (8.6-10.3); Carbon Dioxide 28 mEq/L (23-29); Chloride 100 mEq/L (98-107); Glucose 323 mg/dL (70-105); Osmolality,Calculated 290 (280-300); Sodium 133 mEq/L (136-145); eGFR For African Americans > 60 (> 60); eGFR For Non-African Americans > 60 (> 60)
[2019-06-05] MEDS: Mirtazapine 15 MG TABLET PO SCH ×3 (07:49→20:42)
[2019-06-05] MEDS: Insulin LISPRO 300 UNITS/3 ML VIAL SQ SCH ×4 (07:55→20:43)
--- NOTE | 2019-06-05 08:41 | Internal Med Progress Note ---
<Delon Hartley N - Last Filed: 06/05/19 16:45> Hospitalist Progress Note - Encounter Date of Encounter: 06/05/19 Time of Encounter: 08:41 - Subjective Interval History: Patient sleeping upon entering the room. He is easily arousable. Patient states he is having some pain in his left arm today. Patient denies fever, chills, nausea, vomiting, diarrhea, abdominal pain, chest pain, or shortness of breath. - Exam Vitals: Temp Pulse Resp BP Pulse Ox 98.5 F 73 16 158/87 97 06/05/19 07:21 06/05/19 07:21 06/05/19 07:21 06/05/19 07:21 06/05/19 07:21 Exam: General appearance: Awake alert, answers questions appropriately Head exam: atraumatic, normocephalic Eye exam: EOMI. no scleral icterus. ENT exam: mucous membranes moist, normal oropharynx Neck exam general surgery: supple, trachea midline Respiratory exam: CTAB. No wheezes, rales, or rhonchi Cardiovascular exam: +S1, +S2. No murmurs, rubs, or gallops. GI/Abdominal exam: normal bowel sounds, chronically distended abdomen. No guarding or rebound tenderness. Extremities exam: Left upper extremity with wrapping around the elbow. Left hand and forearm appear swollen as compared to the right with some warmth to touch. Betadine staining to the left upper extremity following surgery. Neurological exam: alert, oriented X3, no focal deficits Psychiatric exam: normal affect, normal mood - Assessment and Plan (1) Abscess Current Visit: No Status: Acute Assessment and Plan: I&D performed on 06/03 to clean out wound. Cultures grew Strep B on 05/19, awaiting blood cultures. Patient met only 1 of the core SIRS criteria on Admission with WBC of 17.2 Elevated WBC resolved 06/05 with count of 10.1. Afebrile -ID consulted will follow recommendations -Vancomycin and Zosyn day 4 (2) Cellulitis Current Visit: No Status: Acute Assessment and Plan: LUE with erythema and edema. Patient states it has improved since abx treatment started yesterday. MRI of left upper extremity from 06/02 shows findings suggestive of septic olecranon bursitis due to gas within the collection Surgery Performed 06/03 to clean wound -Continue empiric antibiotics and await further instructions from infectious disease (3) Diabetes Current Visit: No Status: Chronic Assessment and Plan: Patient's blood sugar on admission was 467. A1c on 05/19 was 13.9%. Blood glucose still elevated will adjust Levemir -Levemir increased to 20 units subcutaneous at bedtime with medium dose sliding scale insulin -We will continue to monitor blood glucose and adjust as needed. (4) Hypertension Current Visit: No Status: Chronic Assessment and Plan: BP currently controlled -Patient placed on home medication will Continue to monitor (5) Substance abuse Current Visit: Yes Status: Acute Assessment and Plan: H/o IVDA. Reports he recently injected into an already cellulitic site -Currenly on Vancomycin and zosyn -ID consulted -Will consider further work up if clinically applicable DVT Prophylaxis: SCDs in place - Time Spent with Patient Total time spent is greater than 50% in coordination of care (as documented) at patient's floor/unit and/or counseling patient: Internal Medicine: Result - Labs CBC & Chem 7: 06/05/19 05:16 06/05/19 05:16 Labs: Short CBC 06/05/19 Range/Units 05:16 WBC 10.1 (4.3-11.1) K/mcL Hgb 10.5 L (12.9-16.9) g/dL Hct 32.1 L (37.5-50.1) % Plt Count 302 (140-400) K/mcL Neutrophils # 6.2 (1.6-8.9) K/mcL BMP 06/05/19 05:16 Sodium 133 L Potassium 4.0 Chloride 100 Carbon Dioxide 28 BUN 16 Creatinine 0.78 Glucose 323 H Calcium 7.7 L - ABG Interpretation ABG results: PT/INR, D-dimer PT 10.5 Seconds (9.4-12.1) 06/02/19 02:37 Consult Discharge Plan - Plan Referrals: NONE,PCP [Primary Care Provider] - <Alisha Conde - Last Filed: 06/05/19 22:58> Hospitalist Progress Note - Encounter Date of Encounter: 06/05/19 - Exam Vitals: Temp Pulse Resp BP Pulse Ox 99.1 F 87 18 143/75 94 06/05/19 22:50 06/05/19 22:50 06/05/19 22:50 06/05/19 22:50 06/05/19 22:50 - Assessment and Plan (1) Abscess of left arm Current Visit: No Status: Acute (2) Diabetes Current Visit: No Status: Chronic (3) Hypertension Current Visit: No Status: Chronic (4) Substance abuse Current Visit: Yes Status: Acute - Time Spent with Patient Total time spent is greater than 50% in coordination of care (as documented) at patient's floor/unit and/or counseling patient: Internal Medicine: Result - Labs CBC & Chem 7: 06/05/19 05:16 06/05/19 05:16 Labs: Short CBC 06/05/19 Range/Units 05:16 WBC 10.1 (4.3-11.1) K/mcL Hgb 10.5 L (12.9-16.9) g/dL Hct 32.1 L (37.5-50.1) % Plt Count 302 (140-400) K/mcL Neutrophils # 6.2 (1.6-8.9) K/mcL BMP 06/05/19 05:16 Sodium 133 L Potassium 4.0 Chloride 100 Carbon Dioxide 28 BUN 16 Creatinine 0.78 Glucose 323 H Calcium 7.7 L - ABG Interpretation ABG results: PT/INR, D-dimer PT 10.5 Seconds (9.4-12.1) 06/02/19 02:37 - Attending Attestation I examined this patient and my medical decision-making was reviewed with the Resident Physician. I agree with the documented findings, disposition and treatment plan as described except to the extent set forth below. <Delon Hartley - Last Filed: 06/05/19 16:45> (2) Cellulitis Qualifiers: Site of cellulitis: extremity Site of cellulitis of extremity: upper extremity Laterality: left Qualified Code(s): L03.114 - Cellulitis of left upper limb (3) Diabetes Qualifiers: Diabetes mellitus type: type 2 Diabetes mellitus predatory animal exterminator insulin use: with predatory animal exterminator use Diabetes mellitus complication status: with hyperglycemia Qualified Code(s): E11.65 - Type 2 diabetes mellitus with hyperglycemia; Z79.4 - half-way (current) use of insulin (4) Hypertension Qualifiers: Hypertension type: essential hypertension Qualified Code(s): I10 - Essential (primary) hypertension <Alisha Conde - Last Filed: 06/05/19 22:58> (2) Diabetes Qualifiers: Diabetes mellitus type: type 2 Diabetes mellitus predatory animal exterminator insulin use: with predatory animal exterminator use Diabetes mellitus complication status: with hyperglycemia Qualified Code(s): E11.65 - Type 2 diabetes mellitus with hyperglycemia; Z79.4 - meterman (current) use of insulin (3) Hypertension Qualifiers: Hypertension type: essential hypertension Qualified Code(s): I10 - Essential (primary) hypertension
--- NOTE | 2019-06-05 10:34 | Infectious Disease Consult ---
Infectious Disease-Consult - Encounter Date/Time Date of Encounter: 06/05/19 Time of Encounter: 10:30 - Data of Consult Requesting Physician: Alisha Conde MD Primary Care Provider: PCP NONE - HPI HPI: Mr. Ford is a 53-year-old male past medical history of asthma, COPD, uncontro lled diabetes with A1c: 13.9, h/o IVDU, hyperlipidemia, hypertension, is s/p left upper extremity incision and drainage of deep abscess from upper arm down to the forearm and into the muscle, left elbow excision of the olecranon bursa and left elbow joint aspiration on 05/19, who presented to the ED on 06/01 with swelling, erythema, tenderness and purulent discharge of the incision site. Patient underwent I&D during his last admission, was treated with IV Vanc and Zosyn which was changed to IV Ancef after wound culture grew Group B Strep (agalacticae) and discharged on PO Keflex. Patient was seen by the orthopedic surgery as an outpatient follow-up and his Abx was changed to PCN V 500 mg q6h *10days + clindamycin 300mg q6h * 5days on 05/23/19. According to the Ortho notes, patient's infection had completely resolved with no erythema and swelling with minimal clear drainage. Patient had recurrence of his abscess and that is when he came to the ED at [facility]. While in the ER, patient met 1/4 SIRS criteria with Temp: 97.5, pulse : 87, RR: 17, had an elevated white blood count at 15, with mild reduction in hemoglobin at 12.3 . Patient was empirically started on broad-spectrum antibiotics and was admitted to the hospital for evaluation by orthopedic surgery. While in the ED, would cultures were obtained and one from the left elbow grew MRSA. MRI from his left elbow showed a well circumscribed fluid collection containing gas at the olecranon bursa measuring 1.9*2.7*4.9 cm with diffuse subcutaneous edema, along with the large nonspecific elbow effusion. Decision was made to take the patient back to the operating room for repeat I&D. meanwhile recommendations were made for elevation of his left upper extremity with continuation of IV antibiotics (Vanc and Zosyn) . Patient successfully underwent I&D on 06/03 . Patient currently has complete resolution of his leukocytosis with WBC 10.1, is afebrile at 99.1, and is on day 4 of vancomycin and Zosyn. Patient denies any systemic signs like shortness of breath, chest pain, diarrhea vomiting or nausea. - ROS Review of Systems: A 10-system review of systems was performed and is negative for pertinent findings except as documented above in the HPI. - Results CBC & Chem 7: 06/06/19 04:15 06/06/19 04:15 - Exam Vitals: Temp Pulse Resp BP Pulse Ox 98.5 F 73 16 158/87 97 06/05/19 07:21 06/05/19 07:21 06/05/19 07:21 06/05/19 07:21 06/05/19 07:21 Exam: Gen.: Vitals noted. No acute distress. Alert, awake and oriented * [address], and time, well developed, well-nourished resting comfortably in bed. Pleasant. HEENT: oropharynx clear, Normocephalic, atraumatic, MMM Neck: supple, no JVD, no lymphadenopathy, no carotid bruit. Cardiac: RRR, no murmur, +S1/S2, No BLE edema, PMI non-displaced Pulmonary: CTA bilaterally, no wheezes, rales or rhonchi, equal chest expansion, unlabored breathing Abdomen: soft, nontender, BS noted, no guarding, mildly distended. No organomegaly, no pulsatile masses, Extremities: s/p incision and drainage of left upper arm currently draped in bandage with no bleeding or serosanguineous discharge MSK: ROM not assessed. no joint swelling noted, gait not assessed while in bed. Non tender calf or clubbing, no cyanosis/clubbing/ or edema Neuro: A&O, moves all extremities, no focal deficits, sensation intact Psych: Appropriate mood and behavior, normal speech. Insulin Glargine [Lantus] 20 unit SQ BID 04/12/17 [History] Mirtazapine [Remeron] 15 mg PO TID 04/12/17 [History] Metoprolol Tartrate [Lopressor] 50 mg PO BID #60 tablet 12/16/17 [Rx] Albuterol Sulfate [Proair Hfa] 1 puff IH Q6H PRN 05/21/19 [History] Insulin ASPART [NovoLOG] 100 unit SQ TIDAC 05/21/19 [History] Lisinopril [Zestril] 10 mg PO DAILY 05/21/19 [History] Montelukast [Singulair] 10 mg PO QPM 05/21/19 [History] metFORMIN [Glucophage] 500 mg PO BID 05/21/19 [History] Ibuprofen [Ibu] 800 mg PO TID PRN 06/01/19 [History] Lovastatin [Mevacor] 20 mg PO HS 06/01/19 [History] Penicillin VK [Pencillin VK] 500 mg PO QID 06/01/19 [History] cloNIDine HCl [CloNIDine HCl] 0.1 mg PO QID PRN 06/01/19 [History] Allergy/AdvReac Type Severity Reaction Status Date / Time Cyclobenzaprine AdvReac See Verified 12/22/16 14:27 [From Flexeril] Comments - Assessment and Plan (1) Abscess of left arm Current Visit: No Status: Acute -Patient presented to the [facility] ED with erythema, tenderness and purulent discharge at the upper arm. Patient has a history of IV drug abuse and endorses that he shoots up of methamphetamine. -on 05/19 , had recently undergone incision and drainage of deep abscess from upper arm down to the forearm and into the muscle, with left elbow excision of the olecranon bursa and left elbow joint aspiration. During the admission, he was treated with IV Vanc and Zosyn which was changed to IV Ancef after wound culture grew Group B Strep (agalacticae) and discharged on PO Keflex. -After the I&D procedure, patient was seen by the orthopedic surgery as an outpatient follow-up and his Abx was changed to PCN V 500 mg q6h *10days + clindamycin 300mg q6h * 5days on 05/23/19. However, it seems the patient had never picked up his prescription. - While in the ER of patient met 1/4 SIRS criteria with Temp: 97.5, pulse : 87, RR: 17, had an elevated white blood count at 15, mild reduction in hemoglobin at 12.3 -Wound culture from the left elbow was positive for MRSA -MRI from his left elbow showed a well circumscribed fluid collection containing gas at the olecranon bursa measuring 1.9*2.7*4.9 cm with diffuse subcutaneous edema, along with the large nonspecific elbow effusion. - Currently patient is on day 4 of vancomycin and Zosyn PLAN: -Hep B, C and HIV tests pending - discontinue Zosyn - Recommended 14 days of PO Bactrim on discharge SNOMED Code(s): 44008027409595456 (2) Diabetes Current Visit: No Status: Chronic -Patient has a history of uncontrolled diabetes with A1c of 13.9 -Blood sugar on admission was 467 -Management as per the primary team Qualifiers: Diabetes mellitus type: type 2 Diabetes mellitus adjunct faculty for medical terminology insulin use: with detention use Diabetes mellitus complication status: with hyperglycemia Qualified Code(s): E11.65 - Type 2 diabetes mellitus with hyperglycemia; Z79.4 - long term care social worker (current) use of insulin SNOMED Code(s): 70782825 (3) Substance abuse Current Visit: Yes Status: Acute Patient has a history of IV drug abuse. He tells me that he was slightly injecting methamphetamine prior to his first incidence of left arm abscess Hepatitis B, hepatitis C, HIV test pending SNOMED Code(s): 96318701 (4) Hypertension Current Visit: No Status: Chronic Has a history of hypertension Continue home medications. Qualifiers: Hypertension type: essential hypertension Qualified Code(s): I10 - Essential (primary) hypertension SNOMED Code(s): 75299636 Past Med Surg Social Fam HX - Past Medical History Medical history: asthma, COPD, diabetes, hepatitis, hyperlipidemia, hypertension Additional medical history: sleep apnea Psychiatric history: anxiety, depression, previous psychiatric hospitalization - Past Surgical History Surgical History: appendectomy, herniorrhaphy Additional surgical history: facial surgery for cellulitis, hernia repair, mass removed from stomach - Social History Smoking Status: Current every day smoker Smokeless Tobacco Status: No Alcohol use: none Drug use: methamphetamine, IV Drug Use - Family History Mother Living Status: Hx Family Cardiac Disorders: No Hx Family Respiratory Disorders: No Hx Family Cancer: No Hx Family GI Disorders: No Hx Family Endocrine Disorder: Yes (Diabetes) Hx Family Neuromuscular Disorders: No Hx Family Neurologic Disorders: No Hx Family HEENT Disorders: No Hx Family Autoimmune Disorders: No Father Name: Kash Peter Age: 92 Family Member Ethnicity: Non- Living Status: Age at : 92 Cause of : stroke Hx Family Cardiac Disorders: Yes Hx Family Respiratory Disorders: No Hx Family Cancer: No Hx Family GI Disorders: No Hx Family Endocrine Disorder: Yes (Diabetes) Hx Family Neuromuscular Disorders: No Hx Family Neurologic Disorders: No Hx Family HEENT Disorders: No Hx Family Autoimmune Disorders: No Consult Discharge Plan - Plan Referrals: NONE,PCP [Primary Care Provider] - - Attending Attestation I examined this patient and my medical decision-making was reviewed with the Resident Physician. I agree with the documented findings, disposition and treatment plan as described except to the extent set forth below. Patient is a 53-year-old gentleman who is an IV drug user amphetamine keeps shooting in his arm had previous cellulitis of the elbow was treated with Keflex with group B streptococcus. Came back with cellulitis and abscess requiring I&D. Intra-Op cultures were positive for MRSA and we were asked to evaluate the patient's make further recommendations Assessment and plan: Left arm abscess causative organism MRSA S: Bactrim, clindamycin, doxycycline status post I&D 06/03/[address] Nelson Concern for recurrence of IV drug use Discussed with Dr. Nelson, he recommended. Days of IV antibiotics before we could to oral Recommendations: Check HIV, hepatitis B and C status since IV drug user Continue vancomycin DC Zosyn On discharge we will recommend probably oral Bactrim to finish a 14 day course Monitor labs and drug toxicity Goal vancomycin trough 10-15 Adequate glucose control
[2019-06-05] MEDS: *HR* HYDROcodone/Acet 5/325 mg TABLET PO PRN (11:47)
[2019-06-05 15:42] LABS: Hepatitis B Surface Antibody 7.56 mIU/mL
--- NOTE | 2019-06-05 15:46 | Orthopedics Progress Note ---
Date of Encounter: 06/05/19 Time of Encounter: 15:20 - Assessment and Plan (1) Abscess of left arm Current Visit: No Status: Acute S/P - left elbow/forearm I&D 06/03 Packing x3 removed from incisions 06/04 continue local wound care cleansing with soap/water TID and recover with dry gauze dressings. can change more often as needed based on drainage. continue to ice and elevate arm. continue ROM as tolerated. Continue pain control per primary team. 06/03 intraoperative wound cx - MRSA, 05/19 cs grew strep agalactiae Continue IV abx per primary team - currently on vancomycin and zosyn. ID has been consulted today and awaiting their recommendations Subjective Principal diagnosis: Left upper extremity abscess Interval history: Patient doing well today. States still having pain in the arm but no new symptoms or concerns at this time. Objective Vital signs: Vital Signs Temp Pulse Resp BP Pulse Ox 06/05/19 12:35 99.1 F 63 17 131/68 96 06/05/19 07:21 98.5 F 73 16 158/87 97 06/05/19 03:43 98.9 F 69 17 169/81 96 06/05/19 00:08 99.1 F 66 18 137/73 97 06/04/19 21:08 98.8 F 62 17 146/72 95 06/04/19 21:00 95 06/04/19 17:04 98.9 F 63 16 125/76 100 Intake and Output 06/04/19 06/05/19 06/05/19 23:59 07:59 15:59 Intake Total 590 / 1600 100 / 200 100 / 200 Output Total 1350 / 1350 1600 / 1600 Balance -760 / 250 -1500 / -1400 100 / -1400 Intake: IV Fluids 350 / 800 100 / 200 100 / 200 Zosyn 3.375 GM In 0.9 % Sodium 100 / 300 100 / 200 100 / 200 Chloride (Mini-Bag +) 100 ML @ 25 mls/hr IVPB Q8HR [facility] Rx#: [id number] Vancocin 1,250 MG In 0.9 % 250 / 500 Sodium Chloride 250 ML @ 166.67 mls/hr IVPB Q12H [facility] Rx#: [id number] Oral 240 / 800 Output: Urine 1350 / 1350 1600 / 1600 Other: # Voids 2 1 Weight 66.8 kg Blood Glucose* 336 270 177 Patient Weight 06/05/19 23:59 Weight 66.8 kg Incision: swollen (continued swelling and erythema noted to the left elbow, sutures in place, areas where packing still somewhat open but healing. moderate tenderness to palpation of elbow. elbow motion limited 20-90 degrees flexion. full wrist and hand motion. sensation intact distally) - Labs CBC & BMP: 06/05/19 05:16 06/05/19 05:16 Labs: Abnormal lab results WBC 15.2 K/mcL (4.3-11.1) H 06/04/19 06:42 RBC 3.44 M/mcL (4.19-5.50) L 06/05/19 05:16 Hgb 10.5 g/dL (12.9-16.9) L 06/05/19 05:16 Hct 32.1 % (37.5-50.1) L 06/05/19 05:16 11.0 K/mcL (1.6-8.9) H 06/04/19 06:42 ESR 59 mm/hr (0-10) H 06/02/19 02:37 Sodium 133 mEq/L (136-145) L 06/05/19 05:16 Potassium 2.7 mEq/L (3.5-5.1) L 06/02/19 02:37 BUN 23 mg/dL (6-20) H 06/04/19 06:42 0.67 mg/dL (0.70-1.30) L 06/02/19 02:37 Glucose 323 mg/dL (70-105) H 06/05/19 05:16 POC Glucose 336 mg/dL (70-99) H 06/04/19 20:50 279 (280-300) L 06/02/19 02:37 Calcium 7.7 mg/dL (8.6-10.3) L 06/05/19 05:16 Phosphorus 1.9 mg/dL (2.7-4.5) L 06/02/19 02:37 Magnesium 1.5 mg/dL (1.6-2.6) L 06/02/19 02:37 53 mg/L (Less than 10) H 06/02/19 09:51 5.9 g/dL (6.4-8.9) L 06/02/19 02:37 2.2 g/dL (3.5-5.7) L 06/02/19 02:37 3.7 g/dL (2.4-3.5) H 06/02/19 02:37 0.6 (1.1-2.2) L 06/02/19 02:37 Consult Discharge Plan - Plan Referrals: NONE,PCP [Primary Care Provider] -
[2019-06-05 15:53] LABS: Hepatitis B Surface Antigen Nonreactive (Nonreactive)
[2019-06-05 16:21] LABS: HIV-1&2 Antibody & p24 Ag Nonreactive (Nonreactive)
[2019-06-05 19:16] LABS: Hepatitis C Virus Antibody Reactive (Nonreactive)
[2019-06-05] MEDS ORDERED: Insulin DETEMIR 100 UNIT/ML X5UNITS SQ SCH (21:00)
[2019-06-06 04:42] LABS: Basophils # 0.1 K/mcL (0.0-0.2); Basophils % 1.2 %; Eosinophils # 0.2 K/mcL (0.0-0.6); Eosinophils % 2.1 %; Hemoglobin 11.7 g/dL (12.9-16.9); Immature Granulocytes % 0.8 % (0-4); Lymphocytes % 28.6 %; Mean Corpuscular HGB Conc 32.5 g/dL (31.6-35.5); Mean Corpuscular Hemoglobin 30.2 pg (28.0-33.3); Mean Corpuscular Volume 92.8 fL (83.0-100.0); Mean Platelet Volume 10.3 fL (9.4-12.4); Monocytes # 0.9 K/mcL (0.0-1.3); Monocytes % 8.2 %; Neutrophils # 6.2 K/mcL (1.6-8.9); Platelet Count 338 K/mcL (140-400); Red Blood Count 3.88 M/mcL (4.19-5.50); Red Cell Distribution Width 13.1 % (11.5-14.5); Segmented Neutrophils % 59.1 %; White Blood Count 10.5 K/mcL (4.3-11.1)
[2019-06-06 04:54] LABS: BUN/Creatinine Ratio 27 (6-26); Blood Urea Nitrogen 19 mg/dL (6-20); Calcium 8.3 mg/dL (8.6-10.3); Carbon Dioxide 28 mEq/L (23-29); Chloride 101 mEq/L (98-107); Glucose 232 mg/dL (70-105); Osmolality,Calculated 292 (280-300); Potassium 3.9 mEq/L (3.5-5.1); Sodium 136 mEq/L (136-145); eGFR For African Americans > 60 (> 60); eGFR For Non-African Americans > 60 (> 60)
--- NOTE | 2019-06-06 08:59 | Discharge Summary ---
- NOTES TO OUTPATIENT PROVIDER Notes to Outpatient Provider: Patient needs to follow on I&D to ensure antibiotic therapy was sufficient. Recheck of Patient's blood glucose and follow up HA1C in 3 months. Orders not resulted at time of discharge: Pending orders 06/03/19 11:35 Culture,Anaerobic [RM] Routine 06/07/19 04:00 CBC [Complete Blood Count] [HEME] AM 0400 06/08/19 04:00 CBC [Complete Blood Count] [HEME] AM 0400 06/09/19 04:00 CBC [Complete Blood Count] [HEME] AM 0400 06/10/19 04:00 CBC [Complete Blood Count] [HEME] AM 0400 06/11/19 04:00 CBC [Complete Blood Count] [HEME] AM 0400 Date of Encounter: 06/06/19 Time of Encounter: 08:59 - Discharge Diagnosis (1) Abscess Priority: Primary Status: Acute (2) Cellulitis Priority: Secondary Status: Acute Qualifiers: Site of cellulitis: extremity Site of cellulitis of extremity: upper extremity Laterality: left Qualified Code(s): L03.114 - Cellulitis of left upper limb (3) Diabetes Priority: Secondary Status: Chronic Qualifiers: Diabetes mellitus type: type 2 Diabetes mellitus longterm insulin use: with longterm use Diabetes mellitus complication status: with hyperglycemia Qualified Code(s): E11.65 - Type 2 diabetes mellitus with hyperglycemia; Z79.4 - group home (current) use of insulin (4) Hypertension Priority: Secondary Status: Chronic Qualifiers: Hypertension type: essential hypertension Qualified Code(s): I10 - Essential (primary) hypertension (5) Substance abuse Priority: Secondary Status: Acute Hospital course: Mr. Ford is a 53 year old male with a past medical history of asthma, COPD, diabetes, hypertension, and IV drug abuse. Patient presented on 06/01 with swelling, erythema, and tenderness with purulent drainage from an incision check site of a previous left elbow joint aspiration on 05/19. Dr. Meade from orthopedic surgery was consulted and admitted patient to hospitalist service. Blood cultures were obtained and patient was started on empiric antibiotics with a diagnosis of abscess and cellulitis of the left upper extremity. Over the course of his stay patient has received Vancomycin and Zosyn since 06/01. Patient had a successful I&D of the site on 06/03. Since that time he has received IV antibiotics. Infectious disease consulted and saw patient on 06/05. Following recommendation of outpatient antibiotic treatment with Bactrim by mouth for 14 days. Discharge discussed with: patient - Time Spent with Patient Total time spent providing and/or coordinating discharge services: Time spent: Greater than 30 minutes - Discharge Medications Prescriptions: New Sulfamethoxazole/Trimeth DS [Bactrim DS] 2 each PO BID 14 Days #56 tablet HYDROcodone/Acet 5/325 mg [[place] 5-325 mg] 1 tab PO Q8H PRN 2 Days #6 tablet PRN Reason: Moderate Pain Continued Mirtazapine [Remeron] 15 mg PO TID Insulin Glargine [Lantus] 20 unit SQ BID Insulin ASPART [NovoLOG] 100 unit SQ TIDAC metFORMIN [Glucophage] 500 mg PO BID Montelukast [Singulair] 10 mg PO QPM Albuterol Sulfate [Proair Hfa] 1 puff IH Q6H PRN PRN Reason: Shortness Of Breath Lovastatin [Mevacor] 20 mg PO HS cloNIDine HCl [CloNIDine HCl] 0.1 mg PO QID PRN PRN Reason: Anxiety Ibuprofen [Ibu] 800 mg PO TID PRN PRN Reason: Pain Metoprolol Tartrate [Lopressor] 50 mg PO BID #60 tablet Discontinued Lisinopril [Zestril] 10 mg PO DAILY Penicillin VK [Pencillin VK] 500 mg PO QID Home Medications: Insulin Glargine [Lantus] 20 unit SQ BID 04/12/17 [History] Mirtazapine [Remeron] 15 mg PO TID 04/12/17 [History] Metoprolol Tartrate [Lopressor] 50 mg PO BID #60 tablet 12/16/17 [Rx] Albuterol Sulfate [Proair Hfa] 1 puff IH Q6H PRN 05/21/19 [History] Insulin ASPART [NovoLOG] 100 unit SQ TIDAC 05/21/19 [History] Montelukast [Singulair] 10 mg PO QPM 05/21/19 [History] metFORMIN [Glucophage] 500 mg PO BID 05/21/19 [History] Ibuprofen [Ibu] 800 mg PO TID PRN 06/01/19 [History] Lovastatin [Mevacor] 20 mg PO HS 06/01/19 [History] cloNIDine HCl [CloNIDine HCl] 0.1 mg PO QID PRN 06/01/19 [History] HYDROcodone/Acet 5/325 mg [[place] 5-325 mg] 1 tab PO Q8H PRN 2 Days #6 tablet 06/06/19 [Rx] Sulfamethoxazole/Trimeth DS [Bactrim DS] 2 each PO BID 14 Days #56 tablet 06/06/19 [Rx] Allergies/Adverse Reactions: Allergy/AdvReac Type Severity Reaction Status Date / Time Cyclobenzaprine AdvReac See Verified 12/22/16 14:27 [From Flexeril] Comments Date of admission: 06/03/19 14:37 Primary care physician: PCP NONE Consults: 06/01/19 18:36 Consult to Nutrition [CONS] Routine Comment: Consulting Provider: NUTRITION Reason for Dietary Consult: MST Score Consult to Template Maker [CONS] Routine Reason for SW Consult: discharge planning 06/02/19 04:48 Consult to Orthopedic Surgery [CONS] Routine Consulting Provider: Orthopedics [facility] Reason for Consult: Dr. Crandall consulted by ED regarding this pt. Call Completed: Yes 06/04/19 13:24 Consult to Infectious Diseases [CONS] Routine Consulting Provider: Infectious Disease [place] Reason for Consult: infection Call Completed: Yes - Constitutional Vitals: Temp Pulse Resp BP Pulse Ox 98.2 F 64 18 146/87 96 06/06/19 06:50 06/06/19 06:50 06/06/19 06:50 06/06/19 06:50 06/06/19 06:50 General appearance: Present: A&O X 3 Exam: General appearance: Awake alert, answers questions appropriately Head exam: atraumatic, normocephalic Eye exam: EOMI. no scleral icterus. ENT exam: mucous membranes moist, normal oropharynx Neck exam general surgery: supple, trachea midline Respiratory exam: CTAB. No wheezes, rales, or rhonchi Cardiovascular exam: +S1, +S2. No murmurs, rubs, or gallops. GI/Abdominal exam: normal bowel sounds, chronically distended abdomen. No guarding or rebound tenderness. Extremities exam: Left upper extremity with wrapping around the elbow. Left hand and forearm swelling appears improved. Clean wound site examined with no evidence of erythema, induration, or warmth. Neurological exam: alert, oriented X3, no focal deficits Psychiatric exam: normal affect, normal mood - Patient Status Disposition: Home, Self-Care Condition: Good Functional capacity at discharge: independent ambulation Overall status at discharge: patient is back to baseline - Discharge Instructions Follow Up With: NONE,PCP [Primary Care Provider] - Additional Instructions: Follow-up with your orthopedic doctor in 1 week for wound check. Follow-up with your primary care doctor in 2 weeks to check blood sugars. Please make records of your red sugars in the morning and at night to bring to the office to adjust your insulin. - Diet and Activity Activity: increase activity as tolerated Diet: diabetic diet
[2019-06-06] MEDS: Insulin LISPRO 300 UNITS/3 ML VIAL SQ SCH ×2 (09:01→11:47)
[2019-06-06] MEDS: Mirtazapine 15 MG TABLET PO SCH (09:02)
[2019-06-06] MEDS: *HR* OxyCODONE Immed Rel 5 MG TABLET PO PRN (09:05)
--- NOTE | 2019-06-06 09:06 | Infectious Disease Progress No ---
ID Progress Note Date of Encounter: 06/06/19 Time of Encounter: 10:15 - Subjective Subjective: Patient was seen and examined at the bedside today. Patient denies any acute distress. The surgical site looks pretty clean with no bleeding or serosangunous discharge. He has been afebrile throughout the night, with normal white blood count. Patient's blood glucose has been high for the last 3 days with the most recent value being 232. His Hep C antibody screen was found to be reactive however his HPS antigen and HIV test were nonreactive. Wound culture was positive for MRSA and patient is currently on day 5 of vancomycin.Patient will be discharged on course of by mouth Bactrim - Objective CBC & Chem 7: 06/06/19 04:15 06/06/19 04:15 - Exam Vitals: Temp Pulse Resp BP Pulse Ox 98.2 F 64 18 146/87 96 06/06/19 06:50 06/06/19 06:50 06/06/19 06:50 06/06/19 06:50 06/06/19 06:50 Exam: Gen.: Vitals noted. No acute distress. Alert, awake and oriented * [address], and time, well developed, well-nourished resting comfortably in bed. Pleasant. HEENT: oropharynx clear, Normocephalic, atraumatic, MMM Neck: supple, no JVD, no lymphadenopathy, no carotid bruit. Cardiac: RRR, no murmur, +S1/S2, No BLE edema, PMI non-displaced Pulmonary: CTA bilaterally, no wheezes, rales or rhonchi, equal chest expansion, unlabored breathing Abdomen: soft, nontender, BS noted, no guarding. No organomegaly, no pulsatile masses, Extremities: s/p incision and drainage of left upper arm with no bleeding or serosanguineous discharge MSK: ROM not assessed. no joint swelling noted, gait not assessed while in bed. Non tender calf or clubbing, no cyanosis/clubbing/ or edema Neuro: A&O, moves all extremities, no focal deficits, sensation intact Psych: Appropriate mood and behavior, normal speech. - Assessment and Plan (1) Abscess of left arm Status: Acute -Patient presented to the [facility] ED with erythema, tenderness and purulent discharge at the upper arm. Patient has a history of IV drug abuse and endorses that he shoots up of methamphetamine. -on 05/19 , had recently undergone incision and drainage of deep abscess from upper arm down to the forearm and into the muscle, with left elbow excision of the olecranon bursa and left elbow joint aspiration. During the admission, he was treated with IV Vanc and Zosyn which was changed to IV Ancef after wound c ulture grew Group B Strep (agalacticae) and discharged on PO Keflex. -After the I&D procedure, patient was seen by the orthopedic surgery as an outpatient follow-up and his Abx was changed to PCN V 500 mg q6h *10days + clindamycin 300mg q6h * 5days on 05/23/19. However, it seems the patient had nev er picked up his prescription. - While in the ER of patient met 1/4 SIRS criteria with Temp: 97.5, pulse : 87, RR: 17, had an elevated white blood count at 15, mild reduction in hemoglobin at 12.3 -Wound culture from the left elbow was positive for MRSA , S: Bactrim, clindamycin, doxycycline -MRI from his left elbow showed a well circumscribed fluid collection containing gas at the olecranon bursa measuring 1.9*2.7*4.9 cm with diffuse subcutaneous edema, along with the large nonspecific elbow effusion. - Currently patient is on day 5 of vancomycin -Patient Hep C Ab screen was reactive - Hep B Ag and HIV Ab/Ab Combo Qula tests have been nonreactive. Hep Bs Ab was 7.56 PLAN: On discharge we will recommend probably oral Bactrim DS 2 tabs BID to finish a 14 day course, last dose 06/19 SNOMED Code(s): 50198375151283228 (2) Diabetes Status: Chronic -Patient has a history of uncontrolled diabetes with A1c of 13.9 -Blood sugar on admission was 232 -Management as per the primary team Qualifiers: Diabetes mellitus type: type 2 Diabetes mellitus intermediate school teacher insulin use: with intermediate school teacher use Diabetes mellitus complication status: with hyperglycemia Qualified Code(s): E11.65 - Type 2 diabetes mellitus with hyperglycemia; Z79.4 - shelter (current) use of insulin SNOMED Code(s): 72564776 (3) Substance abuse Status: Acute Patient has a history of IV drug abuse. He tells me that he was slightly injecting methamphetamine prior to his first incidence of left arm abscess Patient's Hep C Ag screen has been reactive SNOMED Code(s): 25371643 (4) Hypertension Status: Chronic Has a history of hypertension Continue home medications. Qualifiers: Hypertension type: essential hypertension Qualified Code(s): I10 - Essential (primary) hypertension SNOMED Code(s): 78565598 Consult Discharge Plan - Plan Instructions: Diabetes Mellitus Type 2 in Adults (DC) Additional Instructions: Follow-up with your orthopedic doctor in 1 week for wound check. Follow-up with your primary care doctor in 2 weeks to check blood sugars. Please make records of your red sugars in the morning and at night to bring to the office to adjust your insulin. Referrals: Delon Hartley DO [Resident] - 06/26/19 2:00 pm NONE,PCP [Primary Care Provider] - Prescriptions: Sulfamethoxazole/Trimeth DS [Bactrim DS] 2 each PO BID 14 Days #56 tablet HYDROcodone/Acet 5/325 mg [[place] 5-325 mg] 1 tab PO Q8H PRN 2 Days #6 tablet PRN Reason: Moderate Pain - Attending Attestation Patient was discharged before I had a chance to see him
[2019-06-06 10:29] VITALS: BP 134/86
[2019-06-06] MEDS ORDERED: Aminoglycoside Consult 1 EACH MC ONE (14:20)
--- NOTE | 2019-06-06 17:24 | Orthopedics Progress Note ---
Date of Encounter: 06/06/19 Time of Encounter: 13:15 - Assessment and Plan (1) Abscess of left arm Status: Acute S/P - left elbow/forearm I&D 06/03 Packing x3 removed from incisions 06/04 continue local wound care cleansing with soap/water TID and recover with dry gauze dressings. can change more often as needed based on drainage. continue to ice and elevate arm. continue ROM as tolerated. Continue pain control per primary team. 06/03 intraoperative wound cx - MRSA, 05/19 cs grew strep agalactiae Continue abx per primary team - currently on IV vancomycin. ID did stop the zosyn and recommended switching to PO bactrim upon DC due to his h/o IVDA. Recommend patient have abx rx filled here at hospital before discharge as he had a delay after previous admission in picking up his rx from the pharmacy. Will follow up in [facility] office in 1 week. Subjective Principal diagnosis: Left upper extremity abscess Interval history: Patient doing well today. States still having pain in the arm but no new symptoms or concerns at this time. states he has been trying to keep it elevated and working on motion Objective Vital signs: Vital Signs Temp Pulse Resp BP Pulse Ox 06/06/19 10:00 98 F 67 16 134/86 96 06/06/19 06:50 98.2 F 64 18 146/87 96 06/06/19 04:53 98.4 F 62 16 156/94 98 06/05/19 22:50 99.1 F 87 18 143/75 94 06/05/19 20:40 97 06/05/19 19:48 98.6 F 80 17 152/87 97 06/05/19 17:57 98.7 F 64 16 154/69 97 Intake and Output 06/06/19 06/06/19 06/06/19 07:59 15:59 23:59 Intake Total 250 / 250 Output Total 700 / 700 Balance -700 / -450 250 / -450 Intake: IV Fluids 250 / 250 Vancocin 1,500 MG In 0.9 % 250 / 250 Sodium Chloride 250 ML @ 166. 667 mls/hr IVPB Q12H [facility] Rx#: [id number] Output: Urine 700 / 700 Other: Blood Glucose* 277 Incision: draining (Continued but improving erythema and swelling to left elbow/forearm. minimal bloody drainage from incisions. sutures in place. packing sites still open. tenderness to palpation around incision sites, less palpable swelling surrounding area. motion limited 20-100 degrees to elbow. full hand/wrist motion. sensation intact distally.) - Labs CBC & BMP: 06/06/19 04:15 06/06/19 04:15 Labs: Abnormal lab results WBC 15.2 K/mcL (4.3-11.1) H 06/04/19 06:42 RBC 3.88 M/mcL (4.19-5.50) L 06/06/19 04:15 Hgb 11.7 g/dL (12.9-16.9) L 06/06/19 04:15 Hct 36.0 % (37.5-50.1) L 06/06/19 04:15 11.0 K/mcL (1.6-8.9) H 06/04/19 06:42 ESR 59 mm/hr (0-10) H 06/02/19 02:37 Sodium 133 mEq/L (136-145) L 06/05/19 05:16 Potassium 2.7 mEq/L (3.5-5.1) L 06/02/19 02:37 BUN 23 mg/dL (6-20) H 06/04/19 06:42 0.67 mg/dL (0.70-1.30) L 06/02/19 02:37 27 (6-26) H 06/06/19 04:15 Glucose 232 mg/dL (70-105) H 06/06/19 04:15 POC Glucose 223 mg/dL (70-99) H 06/05/19 19:28 279 (280-300) L 06/02/19 02:37 Calcium 8.3 mg/dL (8.6-10.3) L 06/06/19 04:15 Phosphorus 1.9 mg/dL (2.7-4.5) L 06/02/19 02:37 Magnesium 1.5 mg/dL (1.6-2.6) L 06/02/19 02:37 53 mg/L (Less than 10) H 06/02/19 09:51 5.9 g/dL (6.4-8.9) L 06/02/19 02:37 2.2 g/dL (3.5-5.7) L 06/02/19 02:37 3.7 g/dL (2.4-3.5) H 06/02/19 02:37 0.6 (1.1-2.2) L 06/02/19 02:37 Hep Bs Antibody 7.56 mIU/mL (10.00-) L 06/05/19 14:36 Hepatitis C Ab Screen Reactive (Nonreactive) H 06/05/19 14:36 Consult Discharge Plan - Plan Instructions: Diabetes Mellitus Type 2 in Adults (DC) Additional Instructions: Follow-up with your orthopedic doctor in 1 week for wound check. Follow-up with your primary care doctor in 2 weeks to check blood sugars. Please make records of your red sugars in the morning and at night to bring to the office to adjust your insulin. Referrals: Delon Hartley DO [Resident] - 06/26/19 2:00 pm NONE,PCP [Primary Care Provider] - Prescriptions: Sulfamethoxazole/Trimeth DS [Bactrim DS] 2 each PO BID 14 Days #56 tablet HYDROcodone/Acet 5/325 mg [[place] 5-325 mg] 1 tab PO Q8H PRN 2 Days #6 tablet PRN Reason: Moderate Pain
== END 2019-06-06 14:21 | disposition home or self-care (01) | DRG 364 ==
LOC: 3NENU → SUATTDRO 18:08 → 3NENU 18:12 → SUATTDRO 06-03 14:37
PROVIDERS: ADMIT Internal Medicine; ATTEND Internal Medicine

== ENCOUNTER 2022-01-09 09:33 | Observation (INO) ==
[2022-01-09] MEDS ORDERED: Naloxone 0.4 MG/ML INJ IVP PRN (18:00)
[2022-01-09] MEDS ORDERED: *HR* Heparin 5,000 UNIT/ML VIAL IVP ONE (18:00)
[2022-01-09] MEDS ORDERED: Acetaminophen 325 MG TABLET PO PRN (18:00)
[2022-01-09] MEDS ORDERED: *HR* Heparin 5,000 UNIT/ML VIAL IVP PRN (18:00)
[2022-01-09] MEDS ORDERED: *HR* Dextrose 50 % in Water (Syg) 50 ML SYRINGE IVP PRN (18:06)
[2022-01-09] MEDS ORDERED: Dextrose Gel 15 GM/37.5 ML TUBE PO PRN ×2 (18:06)
[2022-01-09] MEDS ORDERED: D5% in Water 1,000 ML IVC PRN (18:06)
[2022-01-09 18:33] LABS: Hematocrit 37.2 % (37.5-50.1); Hemoglobin 12.5 g/dL (12.9-16.9); Mean Corpuscular HGB Conc 33.6 g/dL (31.6-35.5); Mean Corpuscular Hemoglobin 29.8 pg (28.0-33.3); Mean Corpuscular Volume 88.8 fL (83.0-100.0); Mean Platelet Volume 11.2 fL (9.4-12.4); Platelet Count 231 K/mcL (140-400); Red Blood Count 4.19 M/mcL (4.19-5.50); Red Cell Distribution Width 13.6 % (11.5-14.5); White Blood Count 7.2 K/mcL (4.3-11.1)
[2022-01-09] MEDS ORDERED: Perflutren Lipid Microsphere 1.3 ML in 0.9 % Sodium Chloride 8.7 ML IVP PRN (18:33)
[2022-01-09 18:41] LABS: Heparin anti-factor XA UFH 0.08 IU/mL (0.30-0.70)
[2022-01-09 18:42] LABS: INR 0.9; Prothrombin Time 9.7 Seconds (9.4-12.1)
[2022-01-09] MEDS: Heparin 25,000UNIT/250ML 1/2NS 25,000 UNIT/250 ML IV.SOLN IVC SCH (19:24)
[2022-01-09] MEDS ORDERED: Insulin DETEMIR 100 UNIT/ML X5UNITS SUBQ SCH (21:00)
[2022-01-10] MEDS ORDERED: *HR* Labetalol 20 MG/4 ML SYRINGE IVP ONE (00:01)
[2022-01-10 01:50] LABS: Basophils # 0.1 K/mcL (0.0-0.2); Basophils % 1.2 %; Eosinophils # 0.1 K/mcL (0.0-0.6); Eosinophils % 1.6 %; Hematocrit 34.9 % (37.5-50.1); Hemoglobin 11.7 g/dL (12.9-16.9); Immature Granulocytes % 0.3 % (0-4); Lymphocytes # 2.2 K/mcL (0.6-4.6); Lymphocytes % 35.7 %; Mean Corpuscular HGB Conc 33.5 g/dL (31.6-35.5); Mean Corpuscular Hemoglobin 29.3 pg (28.0-33.3); Mean Corpuscular Volume 87.3 fL (83.0-100.0); Mean Platelet Volume 11.3 fL (9.4-12.4); Monocytes # 0.5 K/mcL (0.0-1.3); Monocytes % 8.2 %; Neutrophils # 3.2 K/mcL (1.6-8.9); Platelet Count 212 K/mcL (140-400); Red Cell Distribution Width 13.5 % (11.5-14.5); White Blood Count 6.1 K/mcL (4.3-11.1)
[2022-01-10 02:07] LABS: Alanine Aminotransferase 35 Units/L (7-52); Albumin 2.1 g/dL (3.5-5.7); Albumin/Globulin Ratio 0.6 (1.1-2.2); Alkaline Phosphatase 75 Units/L (34-104); Aspartate Amino Transferase 34 Units/L (13-39); BUN/Creatinine Ratio 14 (6-26); Bilirubin,Total 0.2 mg/dL (0.3-1.0); Blood Urea Nitrogen 11 mg/dL (6-20); Calcium 7.6 mg/dL (8.6-10.3); Carbon Dioxide 29 mEq/L (23-29); Chloride 101 mEq/L (98-107); Chol/HDL Ratio 3.1 (0-4.9); Cholesterol 176 mg/dL (< 200); Globulin 3.3 g/dL (2.4-3.5); Glucose 389 mg/dL (70-105); HDL Cholesterol 57 mg/dL (40-59); LDL Cholesterol,Calculated 97 mg/dL (< 100); Osmolality,Calculated 292 (280-300); Potassium 3.6 mEq/L (3.5-5.1); Sodium 133 mEq/L (136-145); Total Protein 5.4 g/dL (6.4-8.9); Triglycerides 111 mg/dL (< 150); eGFR For African Americans > 60 (> 60); eGFR For Non-African Americans > 60 (> 60)
[2022-01-10] MEDS ORDERED: Insulin LISPRO 300 UNITS/3 ML VIAL SUBQ SCH ×2 (07:30→21:00)
[2022-01-10] MEDS: carvediloL 6.25 MG TABLET PO SCH ×2 (09:57→17:16)
[2022-01-10] MEDS: Furosemide 20 MG/2 ML VIAL IVP SCH (09:57)
[2022-01-10] MEDS: Aspirin 81 MG TAB.CHEW PO SCH (09:57)
[2022-01-10] MEDS: *HR* Heparin 5,000 UNIT/ML VIAL IVP PRN ×2 (12:47→20:43)
[2022-01-10] MEDS: Insulin LISPRO 300 UNITS/3 ML VIAL SUBQ SCH ×2 (12:53→17:17)
[2022-01-10] MEDS: Heparin 25,000UNIT/250ML 1/2NS 25,000 UNIT/250 ML IV.SOLN IVC SCH (17:17)
[2022-01-10] MEDS ORDERED: Insulin DETEMIR 100 UNIT/ML X5UNITS SUBQ SCH (21:00)
[2022-01-11] MEDS: Heparin 25,000UNIT/250ML 1/2NS 25,000 UNIT/250 ML IV.SOLN IVC SCH (01:01)
[2022-01-11] MEDS: Insulin LISPRO 300 UNITS/3 ML VIAL SUBQ SCH ×2 (09:08→11:45)
[2022-01-11] MEDS: Furosemide 20 MG/2 ML VIAL IVP SCH (09:10)
[2022-01-11] MEDS: Aspirin 81 MG TAB.CHEW PO SCH (09:11)
[2022-01-11] MEDS: carvediloL 6.25 MG TABLET PO SCH (09:11)
[2022-01-11] MEDS ORDERED: carvediloL 6.25 MG TABLET PO ONE (11:43)
[2022-01-11] MEDS ORDERED: lisinopriL 5 MG TABLET PO SCH (14:05)
[2022-01-11 14:22] VITALS: BP 121/80; PULSE 65; TEMP 97.9; O2SAT 98
[2022-01-11] MEDS ORDERED: carvediloL 6.25 MG TABLET PO SCH (17:00)
== END 2022-01-11 17:13 | disposition home or self-care (01) ==
LOC: 3BNU
PROVIDERS: ADMIT General Practice; ATTEND General Practice

== ENCOUNTER 2022-08-31 16:36 | Inpatient (IN) ==
[2022-08-31] MEDS ORDERED: Ondansetron 4 MG/2 ML VIAL IVP PRN (20:44)
[2022-08-31] MEDS ORDERED: Naloxone 0.4 MG/ML INJ IVP PRN (20:44)
[2022-08-31] MEDS ORDERED: Acetaminophen 325 MG TABLET PO PRN (20:44)
[2022-08-31] MEDS ORDERED: Melatonin 3 MG TABLET PO PRN (20:44)
[2022-08-31] MEDS ORDERED: *HR* Dextrose 50 % in Water (Syg) 50 ML SYRINGE IVP PRN (21:46)
[2022-08-31] MEDS ORDERED: Dextrose Gel 15 GM/37.5 ML TUBE PO PRN ×2 (21:46)
[2022-08-31] MEDS ORDERED: D5% in Water 1,000 ML IVC PRN (21:46)
[2022-08-31] MEDS ORDERED: *HR* Labetalol 20 MG/4 ML SYRINGE IVP ONE (21:56)
[2022-08-31] MEDS: Insulin DETEMIR 100 UNIT/ML X5UNITS SUBQ SCH (22:20)
[2022-08-31] MEDS: Insulin LISPRO 300 UNITS/3 ML VIAL SUBQ SCH (22:20)
[2022-08-31] MEDS ORDERED: *HR* Labetalol 20 MG/4 ML SYRINGE IVP PRN (23:03)
[2022-08-31] MEDS: Furosemide 40 MG TABLET PO SCH (23:55)
[2022-09-01 01:50] LABS: Basophils # 0.1 K/mcL (0.0-0.2); Basophils % 0.7 %; Eosinophils # 0.2 K/mcL (0.0-0.6); Eosinophils % 1.4 %; Hematocrit 37.2 % (37.5-50.1); Hemoglobin 12.6 g/dL (12.9-16.9); Immature Granulocytes % 0.6 % (0-4); Lymphocytes # 2.8 K/mcL (0.6-4.6); Lymphocytes % 25.5 %; Mean Corpuscular HGB Conc 33.9 g/dL (31.6-35.5); Mean Corpuscular Hemoglobin 29.4 pg (28.0-33.3); Mean Corpuscular Volume 86.7 fL (83.0-100.0); Mean Platelet Volume 11.4 fL (9.4-12.4); Monocytes # 0.8 K/mcL (0.0-1.3); Monocytes % 6.8 %; Neutrophils # 7.1 K/mcL (1.6-8.9); Platelet Count 273 K/mcL (140-400); Red Blood Count 4.29 M/mcL (4.19-5.50); Red Cell Distribution Width 13.4 % (11.5-14.5)
[2022-09-01 01:57] LABS: Prothrombin Time 10.9 Seconds (9.4-12.1)
[2022-09-01 02:11] LABS: Alanine Aminotransferase 37 Units/L (7-52); Albumin 1.8 g/dL (3.5-5.7); Albumin/Globulin Ratio 0.5 (1.1-2.2); Alkaline Phosphatase 79 Units/L (34-104); Aspartate Amino Transferase 33 Units/L (13-39); BUN/Creatinine Ratio 16 (6-26); Bilirubin,Total 0.3 mg/dL (0.3-1.0); Blood Urea Nitrogen 14 mg/dL (6-20); Calcium 7.2 mg/dL (8.6-10.3); Carbon Dioxide 22 mEq/L (23-29); Chloride 106 mEq/L (98-107); Globulin 3.4 g/dL (2.4-3.5); Glucose 247 mg/dL (70-105); Magnesium 1.7 mg/dL (1.6-2.6); Osmolality,Calculated 287 (280-300); Potassium 3.4 mEq/L (3.5-5.1); Sodium 134 mEq/L (136-145); Total Protein 5.2 g/dL (6.4-8.9)
[2022-09-01] MEDS: Furosemide 40 MG TABLET PO SCH (10:30)
[2022-09-01] MEDS: Insulin DETEMIR 100 UNIT/ML X5UNITS SUBQ SCH ×2 (10:30→20:33)
[2022-09-01] MEDS: Insulin LISPRO 300 UNITS/3 ML VIAL SUBQ SCH ×4 (12:06→20:21)
[2022-09-01] MEDS ORDERED: *HR* Labetalol 20 MG/4 ML SYRINGE IVP PRN (12:49)
[2022-09-01] MEDS: lisinopriL 10 MG TABLET PO SCH (15:13)
[2022-09-01 16:45] LABS: Estimated Average Glucose 309 mg/dl; Hemoglobin A1C 12.4 %
[2022-09-01] MEDS: carvediloL 6.25 MG TABLET PO SCH (17:41)
[2022-09-01] MEDS: cefTRIAXone 2,000 MG in 0.9 % Sodium Chloride Mini Bag 100 ML IVPB SCH (17:47)
[2022-09-02 03:10] LABS: Basophils # 0.1 K/mcL (0.0-0.2); Basophils % 0.8 %; Eosinophils # 0.2 K/mcL (0.0-0.6); Eosinophils % 1.4 %; Hematocrit 36.4 % (37.5-50.1); Hemoglobin 12.3 g/dL (12.9-16.9); Immature Granulocytes % 0.8 % (0-4); Lymphocytes # 3.2 K/mcL (0.6-4.6); Lymphocytes % 26.7 %; Mean Corpuscular HGB Conc 33.8 g/dL (31.6-35.5); Mean Corpuscular Hemoglobin 29.4 pg (28.0-33.3); Mean Corpuscular Volume 86.9 fL (83.0-100.0); Mean Platelet Volume 11.4 fL (9.4-12.4); Monocytes # 0.9 K/mcL (0.0-1.3); Monocytes % 7.4 %; Neutrophils # 7.4 K/mcL (1.6-8.9); Platelet Count 254 K/mcL (140-400); Red Blood Count 4.19 M/mcL (4.19-5.50); Red Cell Distribution Width 13.5 % (11.5-14.5); Segmented Neutrophils % 62.9 %; White Blood Count 11.8 K/mcL (4.3-11.1)
[2022-09-02 03:13] LABS: Alanine Aminotransferase 40 Units/L (7-52); Albumin 1.8 g/dL (3.5-5.7); Albumin/Globulin Ratio 0.5 (1.1-2.2); Alkaline Phosphatase 81 Units/L (34-104); Aspartate Amino Transferase 42 Units/L (13-39); BUN/Creatinine Ratio 21 (6-26); Bilirubin,Indirect 0.2 mg/dL (0.0-1.0); Bilirubin,Total 0.2 mg/dL (0.3-1.0); Blood Urea Nitrogen 20 mg/dL (6-20); Calcium 7.3 mg/dL (8.6-10.3); Carbon Dioxide 26 mEq/L (23-29); Chloride 105 mEq/L (98-107); Globulin 3.3 g/dL (2.4-3.5); Glucose 256 mg/dL (70-105); Osmolality,Calculated 287 (280-300); Potassium 3.6 mEq/L (3.5-5.1); Sodium 133 mEq/L (136-145); Total Protein 5.1 g/dL (6.4-8.9)
[2022-09-02] MEDS: carvediloL 6.25 MG TABLET PO SCH ×2 (07:20→17:05)
[2022-09-02] MEDS: lisinopriL 10 MG TABLET PO SCH (07:20)
[2022-09-02] MEDS: Furosemide 40 MG TABLET PO SCH (07:21)
[2022-09-02] MEDS: Insulin LISPRO 300 UNITS/3 ML VIAL SUBQ SCH ×4 (07:46→20:59)
[2022-09-02] MEDS: Insulin DETEMIR 100 UNIT/ML X5UNITS SUBQ SCH ×2 (09:00→20:59)
[2022-09-02] MEDS: cefTRIAXone 2,000 MG in 0.9 % Sodium Chloride Mini Bag 100 ML IVPB SCH (18:35)
[2022-09-03] MEDS: Furosemide 40 MG TABLET PO SCH (08:27)
[2022-09-03] MEDS: carvediloL 6.25 MG TABLET PO SCH ×2 (08:27→16:33)
[2022-09-03] MEDS: lisinopriL 10 MG TABLET PO SCH (08:27)
[2022-09-03] MEDS: Insulin DETEMIR 100 UNIT/ML X5UNITS SUBQ SCH ×2 (08:28→21:25)
[2022-09-03] MEDS: Insulin LISPRO 300 UNITS/3 ML VIAL SUBQ SCH ×4 (08:29→21:25)
[2022-09-03] MEDS: cefTRIAXone 2,000 MG in 0.9 % Sodium Chloride Mini Bag 100 ML IVPB SCH (17:24)
[2022-09-04 05:37] LABS: Basophils # 0.1 K/mcL (0.0-0.2); Basophils % 1.2 %; Eosinophils # 0.2 K/mcL (0.0-0.6); Eosinophils % 1.5 %; Hematocrit 35.1 % (37.5-50.1); Hemoglobin 11.6 g/dL (12.9-16.9); Immature Granulocytes % 0.9 % (0-4); Lymphocytes # 2.3 K/mcL (0.6-4.6); Lymphocytes % 22.8 %; Mean Corpuscular Hemoglobin 29.3 pg (28.0-33.3); Mean Corpuscular Volume 88.6 fL (83.0-100.0); Mean Platelet Volume 12.1 fL (9.4-12.4); Monocytes # 0.8 K/mcL (0.0-1.3); Monocytes % 7.7 %; Neutrophils # 6.6 K/mcL (1.6-8.9); Platelet Count 237 K/mcL (140-400); Red Blood Count 3.96 M/mcL (4.19-5.50); Red Cell Distribution Width 13.5 % (11.5-14.5); Segmented Neutrophils % 65.9 %
[2022-09-04 05:57] LABS: Potassium 3.7 mEq/L (3.5-5.1)
[2022-09-04 05:58] LABS: Albumin 1.9 g/dL (3.5-5.7); Albumin/Globulin Ratio 0.6 (1.1-2.2); Bilirubin,Total 0.2 mg/dL (0.3-1.0); Calcium 7.8 mg/dL (8.6-10.3); Globulin 3.3 g/dL (2.4-3.5); Total Protein 5.2 g/dL (6.4-8.9)
[2022-09-04] MEDS: carvediloL 6.25 MG TABLET PO SCH ×2 (08:04→17:34)
[2022-09-04] MEDS: Aspirin Enteric Coated 81 MG Tablet PO SCH (08:04)
[2022-09-04] MEDS: Furosemide 40 MG TABLET PO SCH (08:05)
[2022-09-04] MEDS: lisinopriL 10 MG TABLET PO SCH (08:05)
[2022-09-04] MEDS: Insulin DETEMIR 100 UNIT/ML X5UNITS SUBQ SCH ×2 (08:07→20:11)
[2022-09-04] MEDS: Insulin LISPRO 300 UNITS/3 ML VIAL SUBQ SCH ×4 (08:09→20:12)
[2022-09-04] MEDS ORDERED: *HR* LORazepam 0.5 MG TABLET PO ONE (09:56)
[2022-09-04] MEDS: cefTRIAXone 2,000 MG in 0.9 % Sodium Chloride Mini Bag 100 ML IVPB SCH (17:34)
[2022-09-04] MEDS ORDERED: Insulin LISPRO 300 UNITS/3 ML VIAL SUBQ ONE (18:27)
[2022-09-05 07:00] LABS: Basophils # 0.1 K/mcL (0.0-0.2); Eosinophils # 0.1 K/mcL (0.0-0.6); Eosinophils % 1.2 %; Hematocrit 33.8 % (37.5-50.1); Hemoglobin 11.3 g/dL (12.9-16.9); Immature Granulocytes % 0.8 % (0-4); Lymphocytes # 2.5 K/mcL (0.6-4.6); Lymphocytes % 24.8 %; Mean Corpuscular HGB Conc 33.4 g/dL (31.6-35.5); Mean Corpuscular Hemoglobin 29.1 pg (28.0-33.3); Mean Corpuscular Volume 87.1 fL (83.0-100.0); Mean Platelet Volume 11.8 fL (9.4-12.4); Monocytes # 0.8 K/mcL (0.0-1.3); Monocytes % 7.5 %; Neutrophils # 6.5 K/mcL (1.6-8.9); Platelet Count 212 K/mcL (140-400); Red Blood Count 3.88 M/mcL (4.19-5.50); Red Cell Distribution Width 13.6 % (11.5-14.5); Segmented Neutrophils % 64.7 %
[2022-09-05 07:22] LABS: Alanine Aminotransferase 71 Units/L (7-52); Albumin 1.9 g/dL (3.5-5.7); Albumin/Globulin Ratio 0.6 (1.1-2.2); Alkaline Phosphatase 84 Units/L (34-104); Aspartate Amino Transferase 80 Units/L (13-39); BUN/Creatinine Ratio 31 (6-26); Bilirubin,Total 0.2 mg/dL (0.3-1.0); Blood Urea Nitrogen 28 mg/dL (6-20); Calcium 7.8 mg/dL (8.6-10.3); Carbon Dioxide 25 mEq/L (23-29); Chloride 104 mEq/L (98-107); Globulin 3.3 g/dL (2.4-3.5); Glucose 288 mg/dL (70-105); Osmolality,Calculated 288 (280-300); Potassium 4.6 mEq/L (3.5-5.1); Sodium 131 mEq/L (136-145); Total Protein 5.2 g/dL (6.4-8.9)
[2022-09-05] MEDS: Aspirin Enteric Coated 81 MG Tablet PO SCH (08:07)
[2022-09-05] MEDS: lisinopriL 10 MG TABLET PO SCH (08:07)
[2022-09-05] MEDS: carvediloL 6.25 MG TABLET PO SCH ×2 (08:07→17:52)
[2022-09-05] MEDS: Furosemide 40 MG TABLET PO SCH (08:08)
[2022-09-05] MEDS: Insulin LISPRO 300 UNITS/3 ML VIAL SUBQ SCH ×4 (08:08→21:44)
[2022-09-05] MEDS: Insulin DETEMIR 100 UNIT/ML X5UNITS SUBQ SCH ×2 (08:09→21:57)
[2022-09-05] MEDS: *HR* OxyCODONE Immed Rel 5 MG TABLET PO PRN (12:25)
[2022-09-05] MEDS: cefTRIAXone 2,000 MG in 0.9 % Sodium Chloride Mini Bag 100 ML IVPB SCH (17:52)
[2022-09-05] MEDS ORDERED: *HR* LORazepam 0.5 MG TABLET PO ONE (18:47)
[2022-09-06] MEDS: Insulin DETEMIR 100 UNIT/ML X5UNITS SUBQ SCH ×2 (10:15→21:52)
[2022-09-06] MEDS: lisinopriL 10 MG TABLET PO SCH (10:15)
[2022-09-06] MEDS: Aspirin Enteric Coated 81 MG Tablet PO SCH (10:15)
[2022-09-06] MEDS: Furosemide 40 MG TABLET PO SCH (10:15)
[2022-09-06] MEDS: Insulin LISPRO 300 UNITS/3 ML VIAL SUBQ SCH ×4 (10:17→21:38)
[2022-09-06] MEDS: carvediloL 6.25 MG TABLET PO SCH ×2 (10:17→16:28)
[2022-09-06] MEDS: *HR* OxyCODONE Immed Rel 5 MG TABLET PO PRN ×2 (10:27→18:27)
[2022-09-06 11:46] LABS: Basophils # 0.1 K/mcL (0.0-0.2); Basophils % 1.3 %; Eosinophils # 0.1 K/mcL (0.0-0.6); Hematocrit 31.7 % (37.5-50.1); Hemoglobin 10.4 g/dL (12.9-16.9); Immature Granulocytes % 0.6 % (0-4); Lymphocytes # 1.8 K/mcL (0.6-4.6); Lymphocytes % 25.9 %; Mean Corpuscular HGB Conc 32.8 g/dL (31.6-35.5); Mean Corpuscular Hemoglobin 29.1 pg (28.0-33.3); Mean Corpuscular Volume 88.8 fL (83.0-100.0); Mean Platelet Volume 12.6 fL (9.4-12.4); Monocytes # 0.6 K/mcL (0.0-1.3); Monocytes % 8.9 %; Neutrophils # 4.4 K/mcL (1.6-8.9); Platelet Count 200 K/mcL (140-400); Red Blood Count 3.57 M/mcL (4.19-5.50); Red Cell Distribution Width 13.5 % (11.5-14.5); Segmented Neutrophils % 62.3 %; White Blood Count 7.1 K/mcL (4.3-11.1)
[2022-09-06 11:56] LABS: Albumin 1.8 g/dL (3.5-5.7); Albumin/Globulin Ratio 0.5 (1.1-2.2); Bilirubin,Indirect 0.2 mg/dL (0.0-1.0); Bilirubin,Total 0.2 mg/dL (0.3-1.0); Calcium 7.6 mg/dL (8.6-10.3); Globulin 3.4 g/dL (2.4-3.5); Potassium 4.6 mEq/L (3.5-5.1); Total Protein 5.2 g/dL (6.4-8.9)
[2022-09-06] MEDS ORDERED: *HR* LORazepam 0.5 MG TABLET PO ONE (16:15)
[2022-09-06] MEDS: cefTRIAXone 2,000 MG in 0.9 % Sodium Chloride Mini Bag 100 ML IVPB SCH (16:28)
[2022-09-07] MEDS: Insulin LISPRO 300 UNITS/3 ML VIAL SUBQ SCH ×2 (08:48→11:47)
[2022-09-07] MEDS: lisinopriL 10 MG TABLET PO SCH (08:49)
[2022-09-07] MEDS: carvediloL 6.25 MG TABLET PO SCH (08:49)
[2022-09-07] MEDS: Aspirin Enteric Coated 81 MG Tablet PO SCH (08:49)
[2022-09-07] MEDS: Furosemide 40 MG TABLET PO SCH (08:49)
[2022-09-07] MEDS: Insulin DETEMIR 100 UNIT/ML X5UNITS SUBQ SCH (08:52)
[2022-09-07] MEDS: *HR* OxyCODONE Immed Rel 5 MG TABLET PO PRN (09:02)
[2022-09-07 11:43] VITALS: BP 129/85; PULSE 82; TEMP 97.8; O2SAT 98
== END 2022-09-07 14:56 | DRG 720 ==
LOC: 3ANU → SUATTDRO 21:22
PROVIDERS: ADMIT Internal Medicine; ATTEND Family Medicine

== ENCOUNTER 2022-09-23 18:07 | Inpatient (IN) ==
[2022-09-23] MEDS ORDERED: Naloxone 0.4 MG/ML INJ IVP PRN (22:34)
[2022-09-23] MEDS ORDERED: Ondansetron ODT 4 MG TAB.RAPDIS SL PRN (22:34)
[2022-09-23] MEDS ORDERED: Acetaminophen 325 MG TABLET PO PRN (22:34)
[2022-09-24 04:02] LABS: Basophils # 0.1 K/mcL (0.0-0.2); Eosinophils # 0.2 K/mcL (0.0-0.6); Hematocrit 33.8 % (37.5-50.1); Hemoglobin 11.4 g/dL (12.9-16.9); Immature Granulocytes % 0.5 % (0-4); Lymphocytes # 2.4 K/mcL (0.6-4.6); Lymphocytes % 27.8 %; Mean Corpuscular HGB Conc 33.7 g/dL (31.6-35.5); Mean Corpuscular Hemoglobin 29.2 pg (28.0-33.3); Mean Corpuscular Volume 86.4 fL (83.0-100.0); Mean Platelet Volume 11.8 fL (9.4-12.4); Monocytes # 0.6 K/mcL (0.0-1.3); Monocytes % 6.8 %; Neutrophils # 5.4 K/mcL (1.6-8.9); Platelet Count 224 K/mcL (140-400); Red Blood Count 3.91 M/mcL (4.19-5.50); Red Cell Distribution Width 13.4 % (11.5-14.5); Segmented Neutrophils % 61.9 %; White Blood Count 8.7 K/mcL (4.3-11.1)
[2022-09-24 04:12] LABS: Activated Partial Thrombo Time 29.7 Seconds (26.0-36.0)
[2022-09-24 04:20] LABS: Alanine Aminotransferase 52 Units/L (7-52); Albumin/Globulin Ratio 0.6 (1.1-2.2); Alkaline Phosphatase 82 Units/L (34-104); Aspartate Amino Transferase 55 Units/L (13-39); BUN/Creatinine Ratio 25 (6-26); Bilirubin,Total 0.3 mg/dL (0.3-1.0); Blood Urea Nitrogen 22 mg/dL (6-20); Calcium 8.1 mg/dL (8.6-10.3); Carbon Dioxide 24 mEq/L (23-29); Chloride 104 mEq/L (98-107); Globulin 3.4 g/dL (2.4-3.5); Glucose 328 mg/dL (70-105); Magnesium 1.5 mg/dL (1.6-2.6); Osmolality,Calculated 290 (280-300); Phosphorous 4.1 mg/dL (2.7-4.5); Sodium 132 mEq/L (136-145); Total Protein 5.4 g/dL (6.4-8.9)
[2022-09-24] MEDS ORDERED: Dextrose Gel 15 GM/37.5 ML TUBE PO PRN ×2 (04:59)
[2022-09-24] MEDS ORDERED: *HR* Dextrose 50 % in Water (Syg) 50 ML SYRINGE IVP PRN (04:59)
[2022-09-24] MEDS ORDERED: D5% in Water 1,000 ML IVC PRN (04:59)
[2022-09-24] MEDS: Insulin LISPRO 300 UNITS/3 ML VIAL SUBQ SCH ×6 (08:19→17:13)
[2022-09-24] MEDS: Albumin 25% 25gram/100mL 25 GM/100 ML IV.SOLN IVPB SCH ×2 (08:21→22:55)
[2022-09-24] MEDS: Insulin DETEMIR 100 UNIT/ML X5UNITS SUBQ SCH ×2 (08:25→23:25)
[2022-09-24] MEDS: carvediloL 6.25 MG TABLET PO SCH ×2 (08:46→17:11)
[2022-09-24] MEDS: Aspirin 81 MG TAB.CHEW PO SCH (10:16)
[2022-09-24] MEDS: Calcium Gluconate 1gm/50mL 1 GM/50 ML BAG IVPB SCH ×2 (10:16→11:17)
[2022-09-24] MEDS: lisinopriL 10 MG TABLET PO SCH (10:17)
[2022-09-24] MEDS: Nicotine 14 MG PATCH.TD24 TD SCH (10:17)
[2022-09-24] MEDS: Furosemide 20 MG/2 ML VIAL IVP SCH (11:18)
[2022-09-24] MEDS: Melatonin 3 MG TABLET PO PRN (23:11)
[2022-09-25] MEDS: Furosemide 20 MG/2 ML VIAL IVP SCH ×3 (04:39→20:57)
[2022-09-25] MEDS: Aspirin 81 MG TAB.CHEW PO SCH (08:26)
[2022-09-25] MEDS: carvediloL 6.25 MG TABLET PO SCH ×2 (08:26→16:44)
[2022-09-25] MEDS: Albumin 25% 25gram/100mL 25 GM/100 ML IV.SOLN IVPB SCH ×2 (08:26→20:58)
[2022-09-25] MEDS: lisinopriL 10 MG TABLET PO SCH (08:26)
[2022-09-25] MEDS: Nicotine 14 MG PATCH.TD24 TD SCH (08:28)
[2022-09-25] MEDS: Insulin LISPRO 300 UNITS/3 ML VIAL SUBQ SCH ×6 (08:55→16:57)
[2022-09-25] MEDS: Insulin DETEMIR 100 UNIT/ML X5UNITS SUBQ SCH ×2 (08:56→20:58)
[2022-09-25 09:10] LABS: Alanine Aminotransferase 55 Units/L (7-52); Albumin 2.8 g/dL (3.5-5.7); Albumin/Globulin Ratio 0.9 (1.1-2.2); Alkaline Phosphatase 82 Units/L (34-104); Aspartate Amino Transferase 60 Units/L (13-39); BUN/Creatinine Ratio 24 (6-26); Bilirubin,Total 0.5 mg/dL (0.3-1.0); Blood Urea Nitrogen 22 mg/dL (6-20); Calcium 8.1 mg/dL (8.6-10.3); Carbon Dioxide 25 mEq/L (23-29); Chloride 107 mEq/L (98-107); Globulin 3.2 g/dL (2.4-3.5); Glucose 156 mg/dL (70-105); Osmolality,Calculated 281 (280-300); Potassium 3.7 mEq/L (3.5-5.1); Sodium 132 mEq/L (136-145)
[2022-09-25 09:16] LABS: Basophils # 0.1 K/mcL (0.0-0.2); Basophils % 1.5 %; Eosinophils # 0.3 K/mcL (0.0-0.6); Eosinophils % 2.8 %; Hematocrit 36.4 % (37.5-50.1); Hemoglobin 12.2 g/dL (12.9-16.9); Immature Granulocytes % 0.7 % (0-4); Lymphocytes # 2.8 K/mcL (0.6-4.6); Lymphocytes % 30.1 %; Mean Corpuscular HGB Conc 33.5 g/dL (31.6-35.5); Mean Corpuscular Hemoglobin 28.9 pg (28.0-33.3); Mean Corpuscular Volume 86.3 fL (83.0-100.0); Mean Platelet Volume 11.8 fL (9.4-12.4); Monocytes # 0.9 K/mcL (0.0-1.3); Monocytes % 9.8 %; Neutrophils # 5.2 K/mcL (1.6-8.9); Platelet Count 274 K/mcL (140-400); Red Blood Count 4.22 M/mcL (4.19-5.50); Red Cell Distribution Width 13.5 % (11.5-14.5); Segmented Neutrophils % 55.1 %; White Blood Count 9.5 K/mcL (4.3-11.1)
[2022-09-25 13:30] LABS: Adenovirus Not Detected (Not Detect); Bordetella Pertussis Not Detected (Not Detect); Chlamydophila pneumoniae Not Detected (Not Detect); Coronavirus 229E Not Detected (Not Detect); Coronavirus HKU1 Not Detected (Not Detect); Coronavirus NL63 Not Detected (Not Detect); Coronavirus OC43 Not Detected (Not Detect); Human Metapneumovirus Not Detected (Not Detect); Human Rhinovirus/Enterovirus Not Detected (Not Detect); Influenza A Subtype 2009 H1 Not Detected (Not Detect); Influenza B Not Detected (Not Detect); Mycoplasma pneumoniae Not Detected (Not Detect); Parainfluenza Virus 1 Not Detected (Not Detect); Parainfluenza Virus 2 Not Detected (Not Detect); Parainfluenza Virus 3 Not Detected (Not Detect); Parainfluenza Virus 4 Not Detected (Not Detect); Respiratory Syncytial Virus Not Detected (Not Detect); SARS-CoV-2 Not Detected (Not Detect)
[2022-09-25] MEDS: Melatonin 3 MG TABLET PO PRN (21:07)
[2022-09-26] MEDS ORDERED: Ketorolac 30 MG/ML VIAL IVP ONE (06:33)
[2022-09-26] MEDS: Furosemide 20 MG/2 ML VIAL IVP SCH ×2 (08:15→20:42)
[2022-09-26] MEDS: lisinopriL 10 MG TABLET PO SCH (08:15)
[2022-09-26] MEDS: Aspirin 81 MG TAB.CHEW PO SCH (08:15)
[2022-09-26] MEDS: carvediloL 6.25 MG TABLET PO SCH ×2 (08:15→16:54)
[2022-09-26] MEDS: Albumin 25% 25gram/100mL 25 GM/100 ML IV.SOLN IVPB SCH ×2 (08:16→20:41)
[2022-09-26] MEDS: Insulin LISPRO 300 UNITS/3 ML VIAL SUBQ SCH ×6 (08:31→16:52)
[2022-09-26] MEDS: Insulin DETEMIR 100 UNIT/ML X5UNITS SUBQ SCH ×2 (08:31→20:54)
[2022-09-26] MEDS: Nicotine 14 MG PATCH.TD24 TD SCH (08:31)
[2022-09-26 15:09] LABS: Basophils # 0.1 K/mcL (0.0-0.2); Basophils % 0.8 %; Eosinophils # 0.2 K/mcL (0.0-0.6); Eosinophils % 1.9 %; Hematocrit 34.8 % (37.5-50.1); Hemoglobin 11.6 g/dL (12.9-16.9); Immature Granulocytes % 0.4 % (0-4); Lymphocytes # 2.4 K/mcL (0.6-4.6); Lymphocytes % 22.9 %; Mean Corpuscular HGB Conc 33.3 g/dL (31.6-35.5); Mean Corpuscular Hemoglobin 29.4 pg (28.0-33.3); Mean Corpuscular Volume 88.3 fL (83.0-100.0); Mean Platelet Volume 11.6 fL (9.4-12.4); Monocytes # 0.9 K/mcL (0.0-1.3); Monocytes % 8.3 %; Neutrophils # 6.8 K/mcL (1.6-8.9); Platelet Count 216 K/mcL (140-400); Red Blood Count 3.94 M/mcL (4.19-5.50); Red Cell Distribution Width 13.5 % (11.5-14.5); Segmented Neutrophils % 65.7 %; White Blood Count 10.4 K/mcL (4.3-11.1)
[2022-09-26 15:32] LABS: Calcium 8.4 mg/dL (8.6-10.3); Potassium 4.6 mEq/L (3.5-5.1)
[2022-09-26] MEDS ORDERED: Ipratropium/Albuterol Neb 3 ML IH PRN (20:41)
[2022-09-26] MEDS: Melatonin 3 MG TABLET PO PRN (20:53)
[2022-09-27] MEDS ORDERED: ALPRAZolam 0.25 MG TABLET PO ONE (01:48)
[2022-09-27] MEDS ORDERED: Nitroglycerin 0.4 MG TAB.SUBL SL PRN (01:59)
[2022-09-27 07:42] VITALS: BP 179/105; PULSE 92; TEMP 98.1; O2SAT 93
[2022-09-27] MEDS: carvediloL 6.25 MG TABLET PO SCH (09:11)
[2022-09-27] MEDS: lisinopriL 10 MG TABLET PO SCH (09:12)
[2022-09-27] MEDS: Nicotine 14 MG PATCH.TD24 TD SCH ×2 (09:12→09:28)
[2022-09-27] MEDS: Aspirin 81 MG TAB.CHEW PO SCH (09:12)
[2022-09-27] MEDS: Albumin 25% 25gram/100mL 25 GM/100 ML IV.SOLN IVPB SCH (09:13)
[2022-09-27] MEDS: Furosemide 20 MG/2 ML VIAL IVP SCH (09:13)
[2022-09-27] MEDS: Insulin LISPRO 300 UNITS/3 ML VIAL SUBQ SCH ×4 (09:26→13:12)
[2022-09-27] MEDS: Insulin DETEMIR 100 UNIT/ML X5UNITS SUBQ SCH (13:11)
== END 2022-09-27 17:07 | disposition home or self-care (01) | DRG 194 ==
LOC: 3ANU → SUATTDRO 21:10
PROVIDERS: ADMIT Internal Medicine; ATTEND Hospitalist